=== PATIENT | female | born 1960 | race Caucasian/White ===

== ENCOUNTER 2022-09-06 08:44 | Outpatient (CLI) | payer MEDICARE, MEDICAID, SELFPAY ==
[2022-09-06 11:11] LABS: Albumin* 4.2 g/dL (3.3-5.0); Blood Urea Nitrogen* 15 mg/dL (7-30); Calcium* 8.6 mg/dL (8.4-10.6); Carbon Dioxide* 29 mmol/L (20-32); Chloride* 106 mmol/L (96-114); Creatinine* 0.5 mg/dL (0.5-1.5); Estimated Glomerular Filt Rate 106 ml/min; Glucose* 119 mg/dL (60-115); Potassium* 4.4 mmol/L (3.6-5.1); Sodium* 140 mmol/L (135-149); Total Protein* 7.6 g/dL (6.0-8.3)
[2022-09-06 11:12] LABS: Alanine Aminotransferase* 36 U/L (4-35); Alkaline Phosphatase* 86 U/L (40-150); Aspartate Amino Transferase* 36 U/L (12-35); Bilirubin Total* 0.6 mg/dL (0.1-1.5); Cholesterol* 126 mg/dL (90-199); HDL Cholesterol* 39 mg/dL (>=50); LDL Cholesterol Calculated 41 mg/dL (<100); Triglycerides* 230 mg/dL (40-149)
== END 2022-09-06 08:45 | disposition home or self-care (01) ==
LOC: NFLDREF 08:44
PROVIDERS: PCP Family Medicine; Visit Provider Family Medicine
DX: Z00.00 Encounter for general adult medical examination without abnormal findings (principal); E78.5 Hyperlipidemia, unspecified; I10 Essential (primary) hypertension
CPT/HCPCS: 80053; 80061

== ENCOUNTER 2022-09-30 11:33 | Outpatient (CLI) | payer MEDICARE, MEDICAID, SELFPAY ==
[2022-09-30 21:44] LABS: Albumin* 4.3 g/dL (3.3-5.0); Chloride* 107 mmol/L (96-114); Sodium* 140 mmol/L (135-149)
[2022-09-30 21:46] LABS: Creatinine* 0.5 mg/dL (0.5-1.5); Estimated Glomerular Filt Rate 106 ml/min
[2022-09-30 21:47] LABS: Alanine Aminotransferase* 41 U/L (4-35); Alkaline Phosphatase* 84 U/L (40-150); Aspartate Amino Transferase* 36 U/L (12-35); Bilirubin Total* 0.6 mg/dL (0.1-1.5); Blood Urea Nitrogen* 15 mg/dL (7-30); Carbon Dioxide* 24 mmol/L (20-32); Glucose* 141 mg/dL (60-115); Total Protein* 7.9 g/dL (6.0-8.3)
[2022-09-30 21:48] LABS: Calcium* 9.3 mg/dL (8.4-10.6)
== END 2022-09-30 11:34 | disposition home or self-care (01) ==
LOC: FRMREF 11:35
PROVIDERS: PCP Family Medicine; Visit Provider Dermatology
DX: L40.50 Arthropathic psoriasis, unspecified (principal); I10 Essential (primary) hypertension; Z79.631 Long term (current) use of antimetabolite agent
CPT/HCPCS: 80053

== ENCOUNTER 2022-11-03 11:10 | Emergency (ER) | payer MEDICARE, MEDICAID, SELFPAY ==
[2022-11-03 11:17] VITALS: BP 149/88; PULSE 78; RESP 16; TEMP 36.7; O2SAT 93; BMI 33.5
--- NOTE | 2022-11-03 12:10 | ED.GENADULT ---
HPI - General Adult General Date Seen: 11/03/22 Chief complaint: Lower Extremity Swelling Stated complaint: RT hand swollen - thinks stich got loose? Time Seen by Provider: 11/03/22 11:11 Source: patient Mode of arrival: ambulatory Limitations: no limitations History of Present Illness HPI narrative: Patient is a 62-year-old woman who has a history of what has been presumed to be psoriasis. She has a rash on her hands, and has been on several different medications to treat psoriasis without any effect. As result, she had a biopsy 6 days ago at the [facility] to see whether not it is in fact psoriasis that they are dealing with. The biopsy was from the right dorsal hand at the 2nd MCP joint. She reports that this area had done fine until last night when she developed swelling and increasing pain in the hand. It is not particularly red above and beyond what she normally has. She has some palmar erythema which is chronic. She has not had any erythema extending up the arm and has not had any fevers. She does have an appointment tomorrow with Dr. Nunez at the [facility]. The stitch is loosely still in place. Related Data Home Medications Medication Instructions Recorded Confirmed albuterol sulfate 90 mcg/actuation 1 puff inhalation PRN 06/14/22 10/28/22 aerosol inhaler triamcinolone acetonide 0.1 % 1 applic topical BID 06/14/22 11/03/22 topical cream Lactobacillus acidophilus 1 tab PO .QD 09/09/22 11/03/22 biotin 1 tab PO .QD 09/09/22 11/03/22 cholecalciferol (vitamin D3) 1 cap PO .QD 09/09/22 11/03/22 ferrous sulfate 1 tab PO .QD 09/09/22 11/03/22 omega-3 fatty acids 500 mg PO QDAY 09/09/22 11/03/22 vit 1 cap PO .QD 09/09/22 11/03/22 C,E,zinc,Np-tghyc-7-lutein-zeaxanthin 250 mg-2.5 mg-0.5 mg capsule Previous Rx's Medication Instructions Recorded calcipotriene 0.005 % topical cream 1 applic topical BID #60 grams 07/20/22 tapinarof 1 % topical cream (Vtama) 1 applic topical QDAY #60 grams 08/17/22 calcipotriene 0.005 % topical 1 applic topical QDAY #120 grams 09/08/22 ointment acyclovir 400 mg tablet 400 mg PO .Tidx5d PRN genital 09/09/22 herpes #30 tabs amitriptyline 50 mg tablet 50 mg PO QHS #90 tabs 09/09/22 amlodipine 10 mg tablet 10 mg PO QPM #90 tabs 09/09/22 bupropion HCl 300 mg 24 hr tablet, 300 mg PO DAILY #90 tabs 09/09/22 extended release fluticasone fur. 100 mcg-umeclid 1 inh inhalation QDAY #180 ea 09/09/22 62.5 mcg-vilant 25 mcg inhalat.powder (Trelegy Ellipta) hydroxyzine pamoate 25 mg capsule 25 mg PO TID PRN anxiety #90 caps 09/09/22 ibuprofen 800 mg tablet 800 mg PO TID PRN pain #30 tabs 09/09/22 metoprolol succinate 25 mg 25 mg PO DAILY #90 tabs 09/09/22 tablet,extended release 24 hr omeprazole 40 mg capsule,delayed 40 mg PO QDAY #90 caps 09/09/22 release roflumilast 0.3 % topical cream 1 applic topical QDAY #60 grams 09/09/22 (Zoryve) simvastatin 20 mg tablet 20 mg PO .Bedtime #90 tabs 09/09/22 buprenorphine 8 mg-naloxone 2 mg 2.5 film sublingual DAILY #70 ea 09/27/22 sublingual film timolol maleate 0.5 % eye drops 1 drp ophthalmic (eye) BID #15 mL 10/28/22 Allergies Allergy/AdvReac Type Severity Reaction Status Date / Time Sulfa (Sulfonamide Allergy Mild Rash Verified 11/03/22 11:14 Antibiotics) Review of Systems Status of ROS: Reports: 6 or more systems reviewed and unremarkable except as noted in History and below [facility] Medical History History of anemia History of traumatic injury of head On methotrexate therapy Psoriasis Psoriasis Surgical History History of bunionectomy History of tonsillectomy Status post laparoscopic Jerilyn fundoplication Social History Smoking Status: Current every day smoker What tobacco products do you use: cigarettes Smoking packs per day: 1 Smoking cigarettes per day: 20.0 Do you use any of these nicotine containing products: None Second hand tobacco smoke exposure: No How often do you have a drink containing alcohol: never AUDIT-C Alcohol total score: 0 Non-prescribed substance use: former substance user Non-prescribed substance use details: clean from heroin since 2006 Little interest or pleasure in doing things: not at all Feeling down, depressed, or hopeless: several days service: No Exam Narrative: Exam Narrative: Vital signs reviewed General alert well-appearing woman. Extremities: Examination of the right hand shows a chronic appearing rash on MCPs, chronic erythema on the palmar surface and diffuse swelling throughout the hand without significant erythema otherwise. The wrist and forearm were normal. Skin: Warm and dry. Changes as noted above. Const: Vital Signs, click to edit/add: Vital Signs - 24 hr 11/03/22 11:17 Temperature 98.0 F Pulse Rate [Pulse Oximeter] 78 Respiratory Rate 16 Blood Pressure [Le ft Upper Arm] 149/88 H Pulse Oximetry 93 Oxygen Delivery Me thod Room Air Course Course Hospital Course: I removed the stitch that was loosely in place, it was not holding anything together, the knot was actually no longer tied. Given that she has a fair amount of swelling and pain I am going to cover her with antibiotics. I do not see significant erythema however. She is not currently on any immunosuppressive therapies. Discussed with her that any time she is feeling worse over the next 24 hours she should just return to the emergency department otherwise follow up with Dr. Nunez tomorrow for recheck. Vital Signs Vital signs: Initial Vital Signs Temperature 98.0 F 11/03/22 11:17 Temperature Source Temporal Artery Scan 11/03/22 11:17 Pulse Rate 78 11/03/22 11:17 Pulse Rhythm 11/03/22 11:17 Pulse Strength 3+ Normal 11/03/22 11:17 Respiratory Rate 16 11/03/22 11:17 Blood Pressure 149/88 H 11/03/22 11:17 Blood Pressure Mean 108 11/03/22 11:17 Blood Pressure Position Sitting 11/03/22 11:17 Pulse Oximetry 93 11/03/22 11:17 Oxygen Delivery Method 11/03/22 11:17 Vital Signs Temperature 98.0 F 11/03/22 11:17 Pulse Rate 78 11/03/22 11:17 Respiratory Rate 16 11/03/22 11:17 Blood Pressure 149/88 H 11/03/22 11:17 Pulse Oximetry 93 11/03/22 11:17 Oxygen Delivery Method 11/03/22 11:17 Temperature 98.0 F 11/03/22 11:17 Pulse Rate 78 11/03/22 11:17 Respiratory Rate 16 11/03/22 11:17 Blood Pressure 149/88 H 11/03/22 11:17 Pulse Oximetry 93 11/03/22 11:17 Oxygen Delivery Method 11/03/22 11:17 Discharge Plan Discharge Clinical Impression: Cellulitis of hand Patient Disposition: Home, Self-Care Condition: Stable Instructions: Cellulitis (ED) Additional Instructions: Antibiotic as prescribed. Follow up as planned tomorrow, return at any time for worsening. Prescriptions: No Action albuterol sulfate 90 mcg/actuation HFA aerosol inhaler 1 puff inhalation PRN triamcinolone acetonide 0.1 % cream 1 applic topical BID Rx Instructions: Apply topically to affected area twice daily as needed buprenorphine-naloxone 8-2 mg film 2.5 film sublingual DAILY Qty: 70 2RF omega-3 fatty acids Capsule 500 mg PO QDAY vit C,E,Zn,Zr--inz-zeax 250-2.5-0.5 mg capsule 1 cap PO .QD biotin 1 tab PO .QD Lactobacillus acidophilus [Probiotic] 1 tab PO .QD cholecalciferol (vitamin D3) 1 cap PO .QD ferrous sulfate [Iron (ferrous sulfate)] 1 tab PO .QD Trelegy Ellipta 100-62.5-25 mcg blister with device 1 inh inhalation QDAY Qty: 180 3RF acyclovir 400 mg tablet 400 mg PO .Tidx5d PRN (Reason: genital herpes) Qty: 30 5RF amitriptyline 50 mg tablet 50 mg PO QHS Qty: 90 3RF amlodipine 10 mg tablet 10 mg PO QPM Qty: 90 3RF bupropion HCl 300 mg tablet extended release 24 hr 300 mg PO DAILY Qty: 90 3RF hydroxyzine pamoate 25 mg capsule 25 mg PO TID PRN (Reason: anxiety) Qty: 90 3RF ibuprofen 800 mg tablet 800 mg PO TID PRN (Reason: pain) Qty: 30 3RF metoprolol succinate 25 mg tablet extended release 24 hr 25 mg PO DAILY Qty: 90 3RF omeprazole 40 mg capsule,delayed release(DR/EC) 40 mg PO QDAY Qty: 90 3RF simvastatin 20 mg tablet 20 mg PO .Bedtime Qty: 90 3RF timolol maleate 0.5 % drops 1 drp ophthalmic (eye) BID Qty: 15 1RF calcipotriene 0.005 % cream 1 applic topical BID Qty: 60 1RF Rx Instructions: rub in gently and completely to affected area twice daily as needed Vtama 1 % cream 1 applic topical QDAY Qty: 60 1RF calcipotriene 0.005 % ointment 1 applic topical QDAY Qty: 120 0RF Rx Instructions: rub in gently and completely Zoryve 0.3 % cream 1 applic topical QDAY Qty: 60 1RF Follow Up/Referrals: Arnulfo Alvarenga MD [Primary Care Provider] - Stand Alone Forms: [facility] Info Instructions
== END 2022-11-03 12:11 | disposition home or self-care (01) ==
PROVIDERS: Emergency Provider Emergency Medicine; PCP Family Medicine
DX: L03.113 Cellulitis of right upper limb (principal)
CPT/HCPCS: 99282; 99283

== ENCOUNTER 2022-12-10 12:54 | Outpatient (CLI) | payer MEDICARE, MEDICAID, SELFPAY ==
--- NOTE | 2022-12-10 13:00 | CRLHL7_ITS ---
For Patients: As a result of the Cures Act, medical imaging exams and procedure reports are released immediately into your electronic medical record. You may view this report before your referring provider. If you have questions, please contact your health care provider. BILATERAL SCREENING MAMMOGRAM WITH COMPUTER-AIDED DETECTION AND TOMOSYNTHESIS TECHNIQUE: CC and MLO views were obtained. These mammographic images have been obtained using full-field digital technique. These mammographic images were interpreted with the benefit of computer-aided detection. Breast Tomosynthesis was used in this interpretation. COMPARISON FILM: 10/28/21, 10/15/20, 07/27/19. FINDINGS: There are scattered areas of fibroglandular density IMPRESSION: There is no radiographic evidence for malignancy. ASSESSMENT: BI-RADS Category 2: Benign RECOMMENDATION: Routine screening mammogram in 1 year. A lay language report of this examination will be provided to the patient. Kelsi Alcantara M.D. Diagnostic/Breast Radiologist [email or web address] Transcribed: 2:18 p.mMyah cooper/Dictated by: Kelsi Alcantara MD @ 12/13/2022 8:24:00 AM (Electronically Signed)
== END 2022-12-10 12:55 | disposition home or self-care (01) ==
LOC: MAMMO 12:56
PROVIDERS: PCP Family Medicine; Visit Provider Family Medicine
DX: Z12.31 Encounter for screening mammogram for malignant neoplasm of breast (principal)
CPT/HCPCS: 77063; 77067

== ENCOUNTER 2022-12-16 09:47 | Outpatient (CLI) | payer MEDICARE, MEDICAID, SELFPAY | END 2022-12-16 09:48 | disposition home or self-care (01) | PROVIDERS: PCP Family Medicine; Visit Provider Dermatology | DX: L40.9 Psoriasis, unspecified (principal) | CPT/HCPCS: 80053; 83735 ==

== ENCOUNTER 2023-03-07 11:10 | Outpatient (CLI) | payer MEDICARE, MEDICAID, SELFPAY | END 2023-03-07 11:11 | disposition home or self-care (01) | LOC: NFLDREF 15:00 | PROVIDERS: PCP Family Medicine; Referring Provider Family Medicine; Visit Provider Dermatology | DX: L40.9 Psoriasis, unspecified (principal); Z79.621 Long term (current) use of calcineurin inhibitor | CPT/HCPCS: 80053; 83735 ==

== ENCOUNTER 2023-07-12 03:15 | Inpatient (IN) | payer MEDICARE, MEDICAID, SELFPAY ==
[2023-07-12] VITALS (17 sets, daily range): BP systolic 114–135; BP diastolic 67–81; PULSE 75–114; RESP 20–22; TEMP 36.7–38.3; O2SAT 78–90; BMI 32.0; BMI 31.9
--- NOTE | 2023-07-12 03:39 | ED_ITS ---
HPI - General Adult General Chief complaint: Unspecified Complaint, Adult Stated complaint: painful cough, body aches Time Seen by Provider: 07/12/23 03:22 Source: patient Mode of arrival: ambulatory History of Present Illness HPI narrative: 62-year-old female with history of COPD that continues to smoke presents to the emergency department for evaluation of cough and body aches. Illness for the past 8 days. Body aches localize to the left lower anterior and lateral rib area. No prior history of PE. She really realize she was short of breath until in triage her oxygen levels were noted to be 78%. She has had no hemoptysis, no productive cough. She does report known history of COPD that she is prescribed inhalers which she has not been using for the last few days because she has felt ill. The rationale for this is unclear. Notes some fatigue and body ache but no anterior upper type chest pain, no palpitations or other cardiac symptoms. Denies history of coronary artery disease or heart failure. No prior history of DVT or PE. Does not take any type of blood thinner. No recent changes in any of her medications with the exception of not using her inhalers recently. No known illness exposures but she did see on the news that there have been a lot of influenza cases already this season. No pertinent travel. It sounds as though she has had low oxygen levels when she has been ill in the past but has declined to be hospitalized then. Denies history of intubation for breathing issues. No fevers that she is aware of. Appetite has been a little decreased but not terribly different than usual. No dysuria, no nausea or vomiting. She tried taking ibuprofen a couple of days ago with no significant improvement in her pain and she tried a Lidoderm patch today which did help somewhat. Past medical history notable for COPD, psoriasis. She is immunocompromised due to use of methotrexate. She has a history of depression and is on Suboxone for opioid therapy. Also history of hypertension and genital herpes with denial of recent outbreak. Medications reported as accurate per patient. Sulfa allergy. Socially she continues to smoke but does not currently drink alcohol. No recreational drugs other than the opiates that are appropriately prescribed. ROS is notable for the generalized and respiratory symptoms as above, otherwise denies times 12 systems. Related Data Home Medications Medication Instructions Recorded Confirmed albuterol sulfate 90 mcg/actuation 1 puff inhalation PRN 06/14/22 06/06/23 aerosol inhaler triamcinolone acetonide 0.1 % 1 applic topical BID 06/14/22 06/06/23 topical cream Lactobacillus acidophilus 1 tab PO .QD 09/09/22 06/06/23 biotin 1 tab PO .QD 09/09/22 06/06/23 cholecalciferol (vitamin D3) 1 cap PO .QD 09/09/22 06/06/23 ferrous sulfate 1 tab PO .QD 09/09/22 06/06/23 omega-3 fatty acids 500 mg PO QDAY 09/09/22 06/06/23 vit 1 cap PO .QD 09/09/22 06/06/23 C,E,zinc,Cj-bjsct-2-lutein-zeaxanthin 250 mg-2.5 mg-0.5 mg capsule Previous Rx's Medication Instructions Recorded acyclovir 400 mg tablet 400 mg PO .Tidx5d PRN genital 09/09/22 herpes #30 tabs amitriptyline 50 mg tablet 50 mg PO QHS #90 tabs 09/09/22 amlodipine 10 mg tablet 10 mg PO QPM #90 tabs 09/09/22 bupropion HCl 300 mg 24 hr tablet, 300 mg PO DAILY #90 tabs 09/09/22 extended release fluticasone fur. 100 mcg-umeclid 1 inh inhalation QDAY #180 ea 09/09/22 62.5 mcg-vilant 25 mcg inhalat.powder (Trelegy Ellipta) hydroxyzine pamoate 25 mg capsule 25 mg PO TID PRN anxiety #90 caps 09/09/22 metoprolol succinate 25 mg 25 mg PO DAILY #90 tabs 09/09/22 tablet,extended release 24 hr omeprazole 40 mg capsule,delayed 40 mg PO QDAY #90 caps 09/09/22 release simvastatin 20 mg tablet 20 mg PO .Bedtime #90 tabs 09/09/22 cyclosporine modified 100 mg 200 mg (2 x 100 mg) PO BID #360 03/01/23 capsule caps ibuprofen 800 mg tablet 800 mg PO TID PRN pain #30 tabs 04/08/23 buprenorphine 8 mg-naloxone 2 mg 2.5 film sublingual DAILY #70 ea 06/06/23 sublingual film Allergies Allergy/AdvReac Type Severity Reaction Status Date / Time Sulfa (Sulfonamide Allergy Mild Rash Verified 10/16/23 10:22 Antibiotics) PFSH PFSH Medical History Encounter for correction current cyclosporin A therapy ?Z79.621 - residential (current) use of calcineurin inhibitor (ICD-10) Infection ?B99.9 - Unspecified infectious disease (ICD-10) On methotrexate therapy ?Z79.631 - rat exterminator (current) use of antimetabolite agent (ICD-10) Psoriasis ?L40.9 - Psoriasis, unspecified (ICD-10) Psoriasis ?L40.9 - Psoriasis, unspecified (ICD-10) History of anemia ?Z86.2 - Personal history of diseases of the blood and blood-forming organs and certain disorders involving the immune mechanism (ICD-10) History of traumatic injury of head ?Z87.828 - Personal history of other (healed) physical injury and trauma (ICD-10) Surgical History History of tonsillectomy ?Z90.89 - Acquired absence of other organs (ICD-10) Status post laparoscopic Jerilyn fundoplication ?Z98.890 - Other specified postprocedural states (ICD-10) History of bunionectomy ?Z98.890 - Other specified postprocedural states (ICD-10) Social History Smoking Status: Current every day smoker What tobacco products do you use: cigarettes Smoking packs per day: 1 Smoking cigarettes per day: 20.0 Do you use any of these nicotine containing products: None Second hand tobacco smoke exposure: No How often do you have a drink containing alcohol: never AUDIT-C Alcohol total score: 0 Non-prescribed substance use: former substance user Non-prescribed substance use details: clean from heroin since 2006 Little interest or pleasure in doing things: not at all Feeling down, depressed, or hopeless: several days service: No Exam Const: Vital Signs, click to edit/add: Vital Signs - 24 hr 07/12/23 03:21 07/12/23 03:26 07/12/23 05:19 Temperature 98.6 F Pulse Rate [Left P ulse Oximeter] 114 H Respiratory Rate 20 Blood Pressure [Ri ght Upper Arm] 124/78 Pulse Oximetry 78 L 83 L 90 Oxygen Delivery Me thod Room Air Nasal Cannula Nasal Cannula Oxygen Flow Rate 2 3 Documenting provider has reviewed patient's vital signs: yes Common normals: no apparent distress Other: Able to speak in full sentences but she does desat even on 2 L to the low 80s with this. No delirium. HENMT: Common normals: normocephalic Head and scalp: normocephalic Face and sinus: normal facial exam Mouth: oral and palatal mucosa normal Throat: posterior oropharynx normal Eye: Common normals: conjunctivae normal General eye: normal appearance of both eyes Conjunctiva: conjunctiva(e) normal Neck & C-Spine: Common normals: full ROM and no lymphadenopathy Chest: Common normals: inspection of chest normal and palpation of chest normal Resp: Other: Mildly increased work of breathing. Decreased air movement throughout and mild prolongation of expiration with coarse expiratory wheeze throughout but no obvious crackle. Cardio: Common normals: regular rate, regular rhythm, S1 normal heart sound, S2 normal heart sound and no murmurs Rate: regular rate Rhythm: regular rhythm Heart sounds: S1 normal and S2 normal GI: Common normals: Normal to inspection, nondistended, normoactive bowel sounds present, soft to palpation, non-tender, no hepatosplenomegaly and no masses Palpation: soft and no hepatosplenomegaly Extremity: Common normals: normal to inspection, normal capillary refill and no pedal edema Neuro: Speech: speech normal Motor exam: strength 5/5 throughout and no movement abnormalities noted Psych: Appearance: grossly normal Attitude: engaged Insight: insight good Judgement: judgment good Skin: Common normals: no rashes or lesions noted General skin exam: no rashes or lesions noted Course Course ED Course: Differential diagnosis including COPD, pneumonia, viral respiratory illness, pulmonary embolism, cardiac process, heart failure, amongst others. Tachycardia noted. Low oxygen sats. Focal pain all worrisome for pulmonary embolism. She also does continue to smoke which would increase her risk. Clear COPD whether this is the primary cause or a secondary consequence is evident. Will draw basic labs including D-dimer. Chest x-ray, COVID swab. Start DuoNeb and give 125 of Solu-Medrol while we await findings. Will likely need CT PA based on findings. Reevaluation(s) Time of Reevaluation #1: 05:55 Reevaluation #1: D-dimer markedly elevated. Patient's O2 sats doing better on 3 L of nasal cannula. Seems to have had some clinical improvement after the DuoNeb and steroids. Chest x-ray with dense consolidation in the left lower lobe, suspicious for effusion, empyema, etc.. Certainly would explain her pain. I still cannot exclude pulmonary embolism. We have had much difficulty getting an IV and anesthesia has now arrived for assistance with this. Have spoken with the hospitalist. We are still trying to get an IV and I do recommend that we push forward with getting a CT angio of the chest but admission is needed regardless of the findings of that chest CT. It will also help us better characterize that effusion. Hospitalist was agreeable to admission. We discussed antibiotics. I recommended Zosyn. He recommended added azithromycin. This is done. We discussed been come ice and and did not think that this would be necessary in her case, but he is welcome to reconsider if he chooses. Permission to admit patient with the CT angio of the chest still pending was granted. Patient agreeable to plan of care. Time of Reevaluation #2: 06:25 Reevaluation #2: Unfortunately, IV line was again unsuccessful. Cannot perform CT PA. Would recommend that we call for a PICC line during the daylight hours. In the interim she still needs are antibiotics, oxygen support management of his COPD. I do not think we necessarily need to start her on heparin. She is showing clinical improvement. But there is going to be further significant delay in getting a PICC line or definitive IV that can tolerate high-dose contrast, consideration for anticoagulation should be made. Information passed along to the med surge team to relay to the hospitalist. Vital Signs Vital signs: Initial Vital Signs Temperature 98.6 F 07/12/23 03:21 Temperature Source Temporal Artery Scan 07/12/23 03:21 Pulse Rate 114 H 07/12/23 03:21 Pulse Rhythm Regular 07/12/23 03:21 Respiratory Rate 20 07/12/23 03:21 Blood Pressure 124/78 07/12/23 03:21 Blood Pressure Mean 93 07/12/23 03:21 Blood Pressure Position Sitting 07/12/23 03:21 Pulse Oximetry 78 L 07/12/23 03:21 Oxygen Delivery Method Room Air 07/12/23 03:21 Vital Signs Temperature 98.6 F 07/12/23 03:21 Pulse Rate 114 H 07/12/23 03:21 Respiratory Rate 20 07/12/23 03:21 Blood Pressure 124/78 07/12/23 03:21 Pulse Oximetry 78 L 07/12/23 03:21 Oxygen Delivery Method Room Air 07/12/23 03:21 Temperature 98.6 F 07/12/23 03:21 Pulse Rate 114 H 07/12/23 03:21 Respiratory Rate 20 07/12/23 03:21 Blood Pressure 124/78 07/12/23 03:21 Pulse Oximetry 90 07/12/23 05:19 Oxygen Delivery Method Nasal Cannula 07/12/23 05:19 Oxygen Flow Rate 3 07/12/23 05:19 Medications Administered Medications: Discontinued Medications Generic Name Dose Route Start Last Admin Trade Name Freq PRN Reason Stop Dose Admin Albuterol/Ipratropium 1 neb 07/12/23 03:37 07/12/23 04:03 Iprat-Albut 0.5-2.5 Mg/3 Ml Neb IH 07/12/23 03:38 1 neb ONCE ONE Administration Methylprednisolone Sodium Succinate 125 mg 07/12/23 03:37 07/12/23 04:37 Methylprednisolone Sod Succ 62.5 Mg/Ml (125) IVP 07/12/23 03:38 125 mg ONCE ONE Administration Medical Decision Making Lab Data Lab results reviewed: Yes I reviewed the patient's lab results Lab results narrative: Marked leukocytosis, almost all neutrophils. Potassium is mildly low which is likely nutritional in nature. CRP is elevated. Troponin reassuring, viral swabs negative. CT with what looks to be a large pleural effusion verses dense consolidation, empyema. Very elevated D-dimer. Labs: Lab Results 07/12/23 07/12/23 Range/Units 03:26 04:30 WBC 20.83 H (4.50-11.00) K/uL RBC 4.78 (4.00-5.20) m/uL Hgb 14.2 (12.0-16.0) gm/dL Hct 41.9 (33.0-51.0) % MCV 88 (80-100) fL MCH 30 (26-34) pg MCHC 34 (32-36) gm/dL RDW Coeff of Sher 12.7 (11.5-15.5) % Plt Count 307 (140-440) K/uL Neut % (Auto) 91.0 H (42.0-72.0) % Lymph % (Auto) 2.7 L (20-44) % [place] % (Auto) 5.9 (0.0-11.0) % Eos % (Auto) 0.0 (0.0-7.0) % Baso % (Auto) 0.0 (0.0-3.0) % Neut # (Auto) 19.00 H (1.7-7.0) K/uL Lymph # (Auto) 0.60 L (0.90-2.90) K/uL [place] # (Auto) 1.20 H (0.00-0.90) K/UL Eos # (Auto) 0.00 (0.00-0.50) K/uL Baso # (Auto) 0.00 (0.00-0.30) K/uL Abs Immat Gran (auto) 0.10 (0.00-0.30) K/uL Imm/Tot Granulo (auto) 0.4 % D-Dimer Quant (PE/DVT) 3.41 H (0.00-0.50) ug/ml Sodium 136 (135-149) mmol/L Potassium 3.2 L (3.6-5.1) mmol/L Chloride 96 (96-114) mmol/L Carbon Dioxide 30 (20-32) mmol/L Anion Gap 10 (7-15) mEq/L BUN 11 (7-30) mg/dL Creatinine 0.5 (0.5-1.5) mg/dL Estimated GFR 105 ml/min Glucose 201 H (60-115) mg/dL Lactate 1.2 (0.5-1.9) mmol/L Calcium 8.5 (8.4-10.6) mg/dL Total Bilirubin 1.4 (0.1-1.5) mg/dL AST 33 (12-35) U/L ALT 30 (4-35) U/L Alkaline Phosphatase 146 (40-150) U/L Troponin I < 0.01 L (0.01-0.04) ng/mL C-Reactive Protein 22.4 H (0.5-1.0) mg/dL NT-Pro-B Natriuret Pep 654 pg/mL Total Protein 7.3 (6.0-8.3) g/dL Albumin 3.6 (3.3-5.0) g/dL SARS-CoV-2 (PCR) Negative SARS-CoV-2 (Negative) Influenza Type A (PCR) Negative PCR FLU A (Negative) Influenza Type B (PCR) Negative PCR FLU B (Negative) RSV (PCR) Negative PCR RSV (Negative) POC Troponin I 0.02 (0.01-0.04) ng/ml Imaging Data Chest x-ray: Attestation: I have reviewed the pertinent imaging results. My impression: Dense consolidation left lower chest, suspicious for empyema, effusion. Radiologist's impression: Findings/Impression: Cardiovascular and mediastinum: Cardiomegaly present. Normal pulmonary vasculature and mediastinum. Lungs and pleural spaces: Moderate to large left-sided pleural effusion with adjacent atelectasis and/or infiltrate. Remainder of the lungs and pleural spaces are clear. No pneumothorax. Bones and soft tissues: No significant findings. ECG Data Attestation: I personally reviewed and interpreted this ECG as follows: Prior ECG tracings: not available for review Interpretation: Rhythm is overall sinus. Rate is around 100. Normal axis and intervals. T- waves are little flat verses inverted, uncertain of significance. But no obvious ischemia. Discharge Plan Discharge Clinical Impression: Acute hypoxic respiratory failure, Empyema, Community acquired pneumonia Patient Disposition: Admitted As Inpatient
--- NOTE | 2023-07-12 03:55 | CRLHL7_ITS ---
For Patients: As a result of the Cures Act, medical imaging exams and procedure reports are released immediately into your electronic medical record. You may view this report before your referring provider. If you have questions, please contact your health care provider. Indication: Dyspnea and hypoxia. Technique: Chest 2 views. Comparison: April 20, 2018. Findings/Impression: Cardiovascular and mediastinum: Cardiomegaly present. Normal pulmonary vasculature and mediastinum. Lungs and pleural spaces: Moderate to large left-sided pleural effusion with adjacent atelectasis and/or infiltrate. Remainder of the lungs and pleural spaces are clear. No pneumothorax. Bones and soft tissues: No significant findings. Dictated by Kevin Aquino MD @ 07/12/2023 5:54:32 AM (Electronically Signed)
[2023-07-12] MEDS: IPRAT-ALBUT 0.5-2.5 MG/3 ML NEB 1 NEB IH ×3 (04:03→13:46)
[2023-07-12] MEDS: METHYLPREDNISOLONE SOD SUCC 62.5 MG/ML (125) 125 MG IVP (04:37)
[2023-07-12 04:41] LABS: Lactate* 1.2 mmol/L (0.5-1.9)
[2023-07-12 04:42] LABS: Hematocrit 41.9 % (33.0-51.0); Hemoglobin* 14.2 gm/dL (12.0-16.0); Immature Granulocytes Pct Auto 0.4 %; Lymphocytes Percent Auto 2.7 % (20-44); Mean Corpuscular HGB Conc 34 gm/dL (32-36); Mean Corpuscular Hemoglobin 30 pg (26-34); Mean Corpuscular Volume 88 fL (80-100); Monocytes Percent Auto 5.9 % (0.0-11.0); Platelet Count* 307 K/uL (140-440); RDW Coefficient of Variation % 12.7 % (11.5-15.5); Red Blood Count 4.78 m/uL (4.00-5.20); White Blood Count* 20.83 K/uL (4.50-11.00)
[2023-07-12 04:46] LABS: Slide Review Reflex No
--- OUTSIDE RECORDS SUMMARY | 2023-07-12 04:46 | XMS_ITS | Continuity of Care Document ---
Author Name Unknown Organization [facility] Address [address] [address] [place] [address] Phone Care Team Providers Care Waterworks Supervisor Name Role Phone Unavailable Unavailable Unavailable Allergies, Adverse Reactions, Alerts Substance Reaction Status Criticality Sulfa (Sulfonamide Antibiotics) Active No Information Medications Medication Instructions Dosage Effective Dates (start - stop) Status Comments Flonase 50 mcg/actuation nasal spray,suspension inhale 1 [place](s) by Nasal route every day 1 [place](s) - Active Guaifenesin AC 10 mg-100 mg/5 mL oral liquid take 10 milliliter by oral route every 4 hours as needed 10.00 milliliter - Active loratadine 10 mg tablet take 1 tablet by ORAL route every day as needed 10 MG - Active acyclovir 400 mg tablet take 1 Tablet by oral route 3 times every day for 5 days as needed - Active amitriptyline 50 mg tablet take 1 Tablet by oral route every day at bedtime 50 MG - Active amlodipine 10 mg tablet take 1 tablet by oral route every day 10 MG - Active buprenorphine 8 mg-naloxone [address] 2.5 Tablet by sublingual route every day 20 MG - Active hydrochlorothiazide 25 mg tablet take 1 tablet by ORAL route every day 25 MG - Active ibuprofen 800 mg tablet take 1 tablet by ORAL route 3 times every day as needed 800 MG - Active mirtazapine 30 mg tablet take 1 tablet b y oral route every day as needed before bed time 30 MG - Active naproxen 500 mg tablet take 1 tablet by ORAL route 2 times every day as needed 500 MG - Active Prilosec 40 mg capsule,delayed release take 1 capsule by oral route 2 times every day before a meal 40 MG - Active bupropion HCl XL 300 mg 24 hr tablet, extended release take 1 tablet by oral route every day 300 MG - Active Iron Plus Vitamin C 65 mg iron-125 mg tablet take 1 Tablet by Oral route 2 times every day - Active Procedures Procedure Date Offic Cons New/estab Mod Routine Serum Collection Advance Directives Directive Yes / No Effective Date File Name No Information Encounters Encounter Description Practice Location Reason(s) For Visit Diagnoses Date Provider Providers Copied on Encounter [facility], [address] [address], [place], [place], [id number], [place] tel:[phone] [facility] No Information No Information Offic Cons New/estab Mod [facility], [address] [address], [place], [place], [id number], [place] tel:[phone] [facility] GI Symptoms or Concerns (chief complaint) Anemia, Iron DeficiencyHep C No Coma-chronicDi etary Surveil/counse l No Information Referring Provider: Arnulfo Alvarenga MD, [address] [place], [address]. tel:[phone] Family History Family Member Type Diagnosis Age At Onset Mother Problem (finding) Leukemia (Cause Of Deat h) Mother Problem (finding) Immunizations Vaccine Date Status Comments Influenza virus vaccine, injectable, quadrivalent, split virus, preservative free, 3 years or older Fluarix, Flulaval or Fluzone Quad [id number] administered Note: Invalid docume nted admin date was . ; Source: Other Provider Payers Payer name Insurance type Covered green party ID Authoriza tion(s) No Information Social History Type Description Quantity Date Captured Comments Alcohol Use Details Unknown Caffeine Use Details Unknown Tobacco Use Status Smoking Status No Information Sex Female Chief Complaint And Reason For Visit No Information Reason For Referral Reason For Referral No Information Plan Of Treatment Date Type Action Status Goal Lifestyle education regardin g diet completed History Of Present Illness Encounter Date Complaint History Of Prese nt Illness GI Symptoms or Concerns This ple asant 54-year-old woman is here mostly to review options for further diagnostic testing to help explain severe iron-deficiency anemia, and also has questions about whether her hepatitis C merits treatment.She has a past medical history of hepatitis C diagnosed in 1994, gastroesophageal reflux, depression with anxiety, hypertension, and other issues as detailed in the past medical history template.This nice lady grew up in [place], [place], but lived for nearly 20 years in [place], returning here around 2005. 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 She has been drug-free for at least nine years, and has no temptations in her current living environment. She believes this was how she acquired hepatitis C infection, although she says she never had acute clinical hepatitis or jaundice. She does struggle with severe fatigue, but has had significant problems with anemia unexplained by the colonoscopy an Functional Status Date Functional Assessmen t No Information Instructions Date Instruction Additional Infor richie I appreciate the opp ortunity to visit with this pleasant lady regarding her GI and liver issues today. Please see my suggestions and orders below, feel free to call with any questions or concerns. Related to Anemia, Iron Deficiency Lifestyle education regarding di et Related to Dietary surveillance and counseling Jeannette information, please Rela robel to Hep C No Coma-chronic Small Bowel PillCam Related to I bertram Deficiency Anemia Assessments Type Assessment Date No Information Patient Care Teams Name Effective Dates (start - stop) Status Members No Information
[2023-07-12 04:47] LABS: Troponin, Point-of-Care* 0.02 ng/ml (0.01-0.04)
[2023-07-12 04:58] LABS: Albumin* 3.6 g/dL (3.3-5.0); Chloride* 96 mmol/L (96-114)
[2023-07-12 04:59] LABS: Potassium* 3.2 mmol/L (3.6-5.1); Sodium* 136 mmol/L (135-149)
[2023-07-12 05:01] LABS: Bilirubin Total* 1.4 mg/dL (0.1-1.5); Creatinine* 0.5 mg/dL (0.5-1.5); Estimated Glomerular Filt Rate 105 ml/min
[2023-07-12 05:02] LABS: Alanine Aminotransferase* 30 U/L (4-35); Alkaline Phosphatase* 146 U/L (40-150); Anion Gap 10 mEq/L (7-15); Aspartate Amino Transferase* 33 U/L (12-35); Blood Urea Nitrogen* 11 mg/dL (7-30); Calcium* 8.5 mg/dL (8.4-10.6); Carbon Dioxide* 30 mmol/L (20-32); Glucose* 201 mg/dL (60-115); Total Protein* 7.3 g/dL (6.0-8.3)
[2023-07-12 05:17] LABS: D Dimer Quantitative* 3.41 ug/ml (0.00-0.50)
[2023-07-12 05:18] LABS: C Reactive Protein* 22.4 mg/dL (0.5-1.0); NT Pro B Type NatriureticPept* 654 pg/mL; Troponin I* < 0.01 ng/mL (0.01-0.04)
[2023-07-12 05:22] LABS: PCR FLU A Negative PCR FLU A (Negative); PCR FLU B Negative PCR FLU B (Negative); PCR RSV Negative PCR RSV (Negative)
[2023-07-12 05:25] LABS: SARS PCR* Negative SARS-CoV-2 (Negative)
--- NOTE | 2023-07-12 05:40 | CRLHL7_ITS ---
For Patients: As a result of the Century Cures Act, medical imaging exams and procedure reports are released immediately into your electronic medical record. You may view this report before your referring provider. If you have questions, please contact your health care provider. INDICATION: .HYPOXIA, DYSPNEA TECHNIQUE: CT chest PE was acquired with 95 cc Isovue 370 IV contrast. COMPARISON: None FINDINGS: Pulmonary Arteries: No CT evidence of pulmonary thromboembolic disease. No pulmonary hypertension or right ventricular strain. Heart and Mediastinum: The visualized portions of the thyroid are normal. No axillary or supraclavicular lymphadenopathy. Prominent nonenlarged mediastinal lymph nodes. Borderline cardiomegaly. Normal caliber aorta. Atherosclerotic calcifications. Lungs and Airways: Passive left basilar atelectasis. Right basilar linear opacities likely subsegmental atelectasis. No endoluminal lesion. Pleura: [id number] left pleural effusion with features of loculation. Additional areas of fissural fluid Abdomen: Small hernia. Bones and soft tissues: Thoracic spondylosis. IMPRESSION: 1. No CT evidence of pulmonary thromboembolic disease. 2. [id number]-pruac left pleural effusion with features of loculation. Consider aspiration and cytological analysis given unilateral pleural effusion if not previously performed. 3. No discrete consolidation. Please note that all CT scans at this facility use dose modulation, iterative reconstruction, and/or weight-based dosing when appropriate to reduce radiation dose to as low as reasonably achievable. Dictated by Panchito Palma MD @ 07/12/2023 9:05:34 PM (Electronically Signed)
[2023-07-12] MEDS: PIPERACILLIN/TAZOBACTAM 3.375 GM in 0.9 % SODIUM CHLORIDE Mini-bag 100 ML IVPB ×2 (06:30→18:25)
--- NOTE | 2023-07-12 06:48 | ED.NURSE ---
DATA CENTER OPERATOR IV attempt via US unsuccessful. Pt taken to floor for further care.
[2023-07-12 08:40] LABS: HCO3 VBG 33 mmol/L (21-28); PCO2 VBG 49 mmHG (40-50); PO2 VBG 41.7 mmHG (25-47); pH VBG 7.437 (7.32-7.43)
[2023-07-12 08:47] LABS: Appearance Urine Slightly Cloudy (Clear); Bilirubin Urine 1+ (Negative); Blood Urine Negative (Negative); Color Urine Orange (Yellow); Glucose Urine Negative (Negative); Ketones Urine 2+ (Negative); Leukocyte Esterase Urine Negative (Negative); Nitrite Urine Negative (Negative); Protein Urine 2+ (Negative); Specific Gravity Urine 1.015 (1.000-1.030); Urobilinogen Urine >=8.0 (0.2-1.0)
[2023-07-12 08:57] LABS: Amorphous Sediment Urine Few; RBC Urine 0-2 (0-2); Squamous Epithelial Cell Urine Moderate (None-Few); WBC Urine 0-2 (0-5)
[2023-07-12] MEDS: OMEPRAZOLE 20 MG CAPSULE DR 40 MG PO (09:06)
[2023-07-12] MEDS: IBUPROFEN 400 MG TABLET PO ×3 (09:06→18:03)
[2023-07-12] MEDS: 0.9 % SODIUM CHLORIDE 1000 ml 1,000 ML 125 ML IV (09:06)
[2023-07-12] MEDS: AZITHROMYCIN 500 MG in 0.9 % SODIUM CHLORIDE 250 ml 250 ML 255 MG IVPB (09:26)
[2023-07-12] MEDS: METOPROLOL SUCCINATE (XL) 25 MG TAB PO (09:27)
[2023-07-12] MEDS: BUPRENORPHINE-NALOX 8-2MG FILM 1.5 EACH SUBLINGUAL (09:27)
[2023-07-12] MEDS: ACETAMINOPHEN 325 MG TABLET 650 MG PO ×4 (09:27→20:49)
[2023-07-12] MEDS: buPROPion XL 150 MG TABLET 300 MG PO (09:28)
[2023-07-12] MEDS: AZITHROMYCIN 250 MG TABLET 500 MG PO (09:56)
[2023-07-12 10:16] LABS: Magnesium* 2.1 mg/dL (1.5-2.6)
--- OUTSIDE RECORDS SUMMARY | 2023-07-12 11:14 | XMS_ITS | Continuity of Care Document ---
Author Name Unknown Organization [facility] Address [address] [address] [place] [address] Phone Care Team Providers Care Car Shagger Name Role Phone Unavailable Unavailable Unavailable Allergies, Adverse Reactions, Alerts Substance Reaction Status Criticality Sulfa (Sulfonamide Antibiotics) Active No Information Medications Medication Instructions Dosage Effective Dates (start - stop) Status Comments Flonase 50 mcg/actuation nasal spray,suspension inhale 1 [place]s) by Nasal route every day 1 [place](s) - Active Guaifenesin AC 10 mg-100 mg/5 [...] Diagnoses Date Provider Providers Copied on Encounter [facility], [address] [address], [place], [place], [id number], [place] tel:[phone] [facility] No Information No Information Offic Cons New/estab Mod [facility], [address] [address], [place], [place], [id number], [place] tel:[phone] [facility] Symptoms or Concerns (chief complaint) Anemia, Iron DeficiencyHep C No Coma-chronicDi etary Surveil/counse l No Information Referring Provider: Arnulfo Alvarenga MD, [address] [place], [address]. tel:[phone] Family History Family Member Type Diagnosis Age At Onset Mother Problem (finding) Leukemia (Cause Of Deat h) Mother Problem (finding) Immunizations Vaccine Date Status Comments Influenza virus vaccine, injectable, quadrivalent, split virus, preservative free, 3 years or older Fluarix, Flulaval or Fluzone Quad [id number] administered Note: Invalid docume nted admin date [...] history template.This nice lady grew up in [place], [place], but lived for nearly 20 years in [place], returning here around 2005. 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 She has [...]
--- NOTE | 2023-07-12 14:28 | PC.NURSE ---
Patient A&O since arrival to unit. IV access was maintained in right wrist but infiltrated during IV azithromycin admin. Abx changed to PO for the time being until PICC line can be placed this afternoon. Team scheduled to arrive around 1600. Patient is on HFNC 20L / 42 FiO2 / 35 degrees; maintaining O2 88-90%. Per RT; ok to apply NC 4-5L for ambulation to bathroom. Patient has a steady gait and continent of B&B. Continues to c/o left rib pain with cough & deep breathing & position change. Droplet precautions were initiated this morning d/t respiratory infection unknown etiology.
--- NOTE | 2023-07-12 14:31 | RESP.RT ---
Pt placed on HFNC at 0800. Requiring more oxygen to maintain SPO2 Decided increased flow may be benificial. Currently at 20L 42% 35 degrees. SPO2 90% RR easy and consistent at 18bpm. She does have a prolonged expiratory phase with some wheezing noted this AM. Suggest scheduled nebs Q4 Will start aerobika tomorrow if Pt is ready. Will wean HFNC in AM Maintain SPO2 around 87-90%
--- NOTE | 2023-07-12 16:00 | CRLHL7_ITS ---
For Patients: As a result of the Century Cures Act, medical imaging exams and procedure reports are released immediately into your electronic medical record. You may view this report before your referring provider. If you have questions, please contact your health care provider. INDICATION: PICC placement. TECHNIQUE: Chest 1 views. COMPARISON: July 12, 2023. FINDINGS: Cardiovascular and mediastinum: Heart size and vasculature are normal in caliber and appearance. Right PICC with tip in the superior cavoatrial junction. Lungs and pleural spaces: Persistent moderate left-sided pleural effusion with basilar consolidation. No pneumothorax. Bones and soft tissues: No significant findings. IMPRESSION: Right PICC with tip in the superior cavoatrial junction. Dictated by Abdirashid Prieto MD @ 07/12/2023 6:00:57 PM (Electronically Signed)
--- NOTE | 2023-07-12 16:00 | CRLHL7_ITS ---
For Patients: As a result of the Century Cures Act, medical imaging exams and procedure reports are released immediately into your electronic medical record. You may view this report before your referring provider. If you have questions, please contact your health care provider. Indication: PICC placement Technique: Grayscale ultrasound images of the right brachial vein, right basilic vein and right internal jugular vein submitted. IMPRESSION: Sonographic guidance for right arm PICC line placement. Dictated by Panchito Irizarry MD @ 07/13/2023 6:55:43 AM (Electronically Signed)
--- NOTE | 2023-07-12 16:27 | PM.IMHP1 ---
Hospitalist- H&P: HPI History of Present Illness Date Seen: 07/12/23 Chief complaint: painful cough, body aches Narrative: Michelle Trejo is a 62 year old woman presents with 2 weeks of progressive dyspnea, body aches, left-sided chest discomfort. She is a longstanding tobacco smoker and has no plans of quitting. Has known COPD. Acknowledges she is not adhering to medication regimen for her COPD. Believes she has had intermittent fevers. Denies rigors or diaphoresis. Has chronic cough. Denies hemoptysis. Acknowledges sputum production. Sputum sometimes yellow or green. Over the last couple days her dyspnea has worsened. With other symptoms persistent including the pain, she opted to come in for further evaluation to the emergency department this morning. Dyspnea worse with exertion. Denies paroxysmal nocturnal dyspnea or orthopnea. Denies dependent edema. Acknowledges decreased appetite. Denies nausea or vomiting. Denies dysphagia or odynophagia, dyspepsia, abdominal pain, diarrhea or constipation. Review of Systems Status of ROS: Reports: 10 or more systems reviewed and unremarkable except as noted in History and below [facility] Medical History Skin fissures ?R23.4 - Changes in skin texture (ICD-10) Tobacco dependence ?F17.200 - Nicotine dependence, unspecified, uncomplicated (ICD-10) Genital herpes ?A60.00 - Herpesviral infection of urogenital system, unspecified (ICD-10) Opioid use disorder ?F11.90 - Opioid use, unspecified, uncomplicated (ICD-10) Uterine fibroid ?D25.9 - Leiomyoma of uterus, unspecified (ICD-10) Simple obesity (12/14/12) ?E66.9 - Obesity, unspecified (ICD-10) PTSD (post-traumatic stress disorder) (12/14/12) ?F43.10 - Post-traumatic stress disorder, unspecified (ICD-10) Opioid dependence ?F11.20 - Opioid dependence, uncomplicated (ICD-10) Obstructive sleep apnea syndrome ?G47.33 - Obstructive sleep apnea (adult) (pediatric) (ICD-10) Low back pain ?M54.50 - Low back pain, unspecified (ICD-10) Insomnia (12/14/12) ?G47.00 - Insomnia, unspecified (ICD-10) Hypertension ?I10 - Essential (primary) hypertension (ICD-10) Hyperlipidemia ?E78.5 - Hyperlipidemia, unspecified (ICD-10) Hiatal hernia ?K44.9 - Diaphragmatic hernia without obstruction or gangrene (ICD-10) Hammer toe ?M20.40 - Other hammer toe(s) (acquired), unspecified foot (ICD-10) Gastroesophageal reflux disease (12/14/12) ?K21.9 - Gastro-esophageal reflux disease without esophagitis (ICD-10) Encounter for screening laboratory testing for severe acute respiratory syndrome coronavirus 2 (SARS-CoV-2) ?Z20.822 - Contact with and (suspected) exposure to COVID-19 (ICD-10) Encounter for pre-operative examination ?Z01.818 - Encounter for other preprocedural examination (ICD-10) Dysthymic disorder (12/14/12) ?F34.1 - Dysthymic disorder (ICD-10) Chronic obstructive pulmonary disease ?J44.9 - Chronic obstructive pulmonary disease, unspecified (ICD-10) Chronic low back pain ?M54.50 - Low back pain, unspecified (ICD-10) ?G89.29 - Other chronic pain (ICD-10) Chronic hepatitis C virus infection (12/14/12) ?B18.2 - Chronic viral hepatitis C (ICD-10) Central sleep apnea ?G47.31 - Primary central sleep apnea (ICD-10) Carpal tunnel syndrome ?G56.00 - Carpal tunnel syndrome, unspecified upper limb (ICD-10) Anxiety (12/14/12) ?F41.9 - Anxiety disorder, unspecified (ICD-10) Acute postoperative respiratory insufficiency ?J95.89 - Other postprocedural complications and disorders of respiratory system, not elsewhere classified (ICD-10) Abscess or cellulitis of thigh Abscess ?L02.91 - Cutaneous abscess, unspecified (ICD-10) 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 ?Z79.621 - termite technician (current) use of calcineurin inhibitor (ICD-10) Infection ?B99.9 - Unspecified infectious disease (ICD-10) On methotrexate therapy ?Z79.631 - [facility] (current) use of antimetabolite agent (ICD-10) Psoriasis ?L40.9 - Psoriasis, unspecified (ICD-10) Psoriasis ?L40.9 - Psoriasis, unspecified (ICD-10) History of anemia ?Z86.2 - Personal history of diseases of the blood and blood-forming organs and certain disorders involving the immune mechanism (ICD-10) History of traumatic injury of head ?Z87.828 - Personal history of other (healed) physical injury and trauma (ICD-10) Surgical History History of tonsillectomy ?Z90.89 - Acquired absence of other organs (ICD-10) Status post laparoscopic Jerilyn fundoplication ?Z98.890 - Other specified postprocedural states (ICD-10) History of bunionectomy ?Z98.890 - Other specified postprocedural states (ICD-10) Social History What is your current living situation?: I presently have a place to live Problems where you live: no known problems Problems where you live details: none In the past 12 months, utilities in danger of being shut off: no In past 12 months, lack of transportation kept you from medical appts, meetings, work, or getting things needed for daily living: no In the past 12 mos, have been you worried that your food would run out before you had money to buy more?: never true In the past 12 mos, the food you bought just didn't last and you didn't have money to buy more?: never true Are you following a diet prescribed by a doctor: No Are you following a special diet: No Highest level of school completed/degree received: high school graduate Smoking Status: Current every day smoker What tobacco products do you use: cigarettes Smoking packs per day: 1 Smoking cigarettes per day: 20.0 Do you use any of these nicotine containing products: None Second hand tobacco smoke exposure: No How often do you have a drink containing alcohol: never AUDIT-C Alcohol total score: 0 Non-prescribed substance use: former substance user Non-prescribed substance use details: clean from heroin since 2006 Caffeine: Yes How often does anyone, including family, friends and others, physically hurt you: never How often does anyone, including family, friends and others, insult or talk down to you: never How often does anyone, including family, friends and others, threaten you with harm: never How often does anyone, including family, friends and others, scream or curse at you: never Little interest or pleasure in doing things: not at all Feeling down, depressed, or hopeless: several days service: No Meds Home Medications and Allergies Home Medications Medication Instructions Recorded Confirmed Type albuterol sulfate 90 mcg/actuation 1 puff inhalation Q4H PRN 06/14/22 07/12/23 History aerosol inhaler biotin 1 tab PO DAILY 09/09/22 07/12/23 History omega-3 fatty acids 500 mg PO QDAY 09/09/22 07/12/23 History Lactobacillus acidophilus 10 mg PO DAILY 07/12/23 07/12/23 History (Acidophilus capsule) acyclovir 400 mg tablet 400 mg PO TID PRN genital herpes 07/12/23 07/12/23 History amitriptyline 50 mg tablet 50 mg PO HS 07/12/23 07/12/23 History amlodipine 10 mg tablet 10 mg PO HS 07/12/23 07/12/23 History cholecalciferol (vitamin D3) 25 25 mcg PO DAILY 07/12/23 07/12/23 History mcg (1,000 unit) tablet (Vitamin D3) ferrous sulfate 325 mg (65 mg 325 mg PO DAILY 07/12/23 07/12/23 History iron) tablet fluticasone fur. 100 mcg-umeclid 1 inh inhalation DAILY 07/12/23 07/12/23 History 62.5 mcg-vilant 25 mcg inhalat.powder (Trelegy Ellipta) omeprazole 40 mg capsule,delayed 40 mg PO DAILY 07/12/23 07/12/23 History release simvastatin 20 mg tablet 20 mg PO HS 07/12/23 07/12/23 History Allergies Allergy/AdvReac Type Severity Reaction Status Date / Time Sulfa (Sulfonamide Allergy Mild Rash Verified 06/06/23 10:22 Antibiotics) Exam Narrative: Exam Narrative: Examine her in her hospital room. Appears comfortable. Alert and oriented to self, place, time, situation. Articulate and cooperative. Hearing and vision are preserved. Normal external auditory canals and tympanic membranes bilaterally. Midline nasal septum with clear nasal discharge. Dentition in fair repair. Posterior pharynx benign. Midline trachea, normal thyroid. Neck supple. No adenopathy in the head and neck region. No CVA tenderness. On auscultation of her lungs she has decreased breath sounds in left base with bibasilar rales and scattered rhonchi and wheezing. Prolonged expiratory phase. Regular heart rate and rhythm. Normal S1-S2. Abdomen is active bowel sounds, soft, nontender. No rebound or guarding. Extremities with only trace edema. No focal neurologic deficits. Skin is intact. Const: Vital Signs, click to edit/add: Vital Signs - 24 hr 07/12/23 03:21 07/12/23 03:26 07/12/23 05:19 Temperature 98.6 F Pulse Rate [Left P ulse Oximeter] 114 H Pulse Rate [Right Pulse Oximeter] Respiratory Rate 20 Blood Pressure [Ri ght Arm] Blood Pressure [Ri ght Upper Arm] 124/78 Pulse Oximetry 78 L 83 L 90 Oxygen Delivery Me thod Room Air Nasal Cannula Nasal Cannula Oxygen Flow Rate 2 3 Fraction of Inspir ed Oxygen 07/12/23 05:40 07/12/23 06:50 07/12/23 08:10 Temperature 98.6 F 100.9 F H Pulse Rate [Left P ulse Oximeter] 110 H 94 Pulse Rate [Right Pulse Oximeter] Respiratory Rate 20 20 Blood Pressure [Ri ght Arm] 135/81 Blood Pressure [Ri ght Upper Arm] 122/68 Pulse Oximetry 80 L 88 89 Oxygen Delivery Me thod Nasal Cannula Nasal Cannula Oxygen Flow Rate 3 3 Fraction of Inspir ed Oxygen 07/12/23 09:15 07/12/23 12:34 07/12/23 12:53 Temperature 98.2 F Pulse Rate [Left P ulse Oximeter] Pulse Rate [Right Pulse Oximeter] 75 Respiratory Rate 22 20 Blood Pressure [Ri ght Arm] 114/69 Blood Pressure [Ri ght Upper Arm] Pulse Oximetry 89 88 Oxygen Delivery Me thod Nasal Cannula High Flow Nasal Ca nnula Oxygen Flow Rate 5 20 Fraction of Inspir ed Oxygen 42 42 07/12/23 13:49 07/12/23 14:30 Temperature Pulse Rate [Left P ulse Oximeter] Pulse Rate [Right Pulse Oximeter] Respiratory Rate Blood Pressure [Ri ght Arm] Blood Pressure [Ri ght Upper Arm] Pulse Oximetry Oxygen Delivery Me thod Oxygen Flow Rate 20 Fraction of Inspir ed Oxygen 42 42 Documenting provider has reviewed patient's vital signs: yes Hospitalist - H&P: Result Labs Labs: Short CBC 07/12/23 Range/Units 04:30 WBC 20.83 H (4.50-11.00) K/uL Hgb 14.2 (12.0-16.0) gm/dL Hct 41.9 (33.0-51.0) % Plt Count 307 (140-440) K/uL BMP 07/12/23 04:30 Sodium 136 Potassium 3.2 L Chloride 96 Carbon Dioxide 30 BUN 11 Creatinine 0.5 Glucose 201 H Calcium 8.5 Cardiac Enzymes 07/12/23 Range/Units 04:30 Troponin I < 0.01 L (0.01-0.04) ng/mL Liver Function 07/12/23 Range/Units 04:30 Total Bilirubin 1.4 (0.1-1.5) mg/dL AST 33 (12-35) U/L ALT 30 (4-35) U/L Alkaline Phosphatase 146 (40-150) U/L Albumin 3.6 (3.3-5.0) g/dL Urine 07/12/23 Range/Units 08:36 Urine Color [place] A (Yellow) Urine Appearance Slightly Cloudy A (Clear) Urine pH 6.0 (5.0-8.5) Ur Specific [place] 1.015 (1.000-1.030) Urine Protein 2+ A (Negative) Urine Glucose (UA) Negative (Negative) ECG Attestation: I personally reviewed and interpreted this ECG as follows: ECG interpretation date: 07/12/23 Prior ECG tracings: not available for review Interpretation: Sinus tachycardia, heart rate 103. No ischemic changes. Imaging Chest x-ray: Attestation: I have reviewed the pertinent imaging results. Radiologist's impression: Findings/Impression: Cardiovascular and mediastinum: Cardiomegaly present. Normal pulmonary vasculature and mediastinum. Lungs and pleural spaces: Moderate to large left-sided pleural effusion with adjacent atelectasis and/or infiltrate. Remainder of the lungs and pleural spaces are clear. No pneumothorax. Bones and soft tissues: No significant findings. Assessment and Plan Assessment and plan (1) Community acquired pneumonia: Problem comment: - chest x-ray 07/12/2023: Findings/Impression: Cardiovascular and mediastinum: Cardiomegaly present. Normal pulmonary vasculature and mediastinum. Lungs and pleural spaces: Moderate to large left-sided pleural effusion with adjacent atelectasis and/or infiltrate. Remainder of the lungs and pleural spaces are clear. No pneumothorax. Bones and soft tissues: No significant findings. - obtain CT scan of chest to assess for possible other etiology including neoplasm, pulmonary embolism - blood cultures obtained after IV antibiotics were started emergency department - on Zosyn and azithromycin Status: Acute (2) Pleural effusion on left: Problem comment: - parapneumonic effusion versus empyema versus other etiology - CT scan of chest ordered - consider needle thoracentesis for diagnostic purposes Status: Acute (3) Acute hypoxic respiratory failure: Problem comment: - multifactorial including from underlying COPD and new community-acquired pneumonia - requiring oxygen support. On high-flow oxygen as of 07/12/2023 Status: Acute (4) Chronic obstructive pulmonary disease: Problem comment: - patient acknowledges noncompliance with medication regimen and continued tobacco use Status: Acute (5) Tobacco dependence: Problem comment: - no interest in smoking cessation at this time Status: Acute (6) Opioid use disorder: Problem comment: - continue with usual dosing of buprenorphine Status: Acute (7) Psoriasis: Problem comment: - hold Cyclosporin while in hospital Status: Acute (8) Acute exacerbation of chronic obstructive pulmonary disease: Problem comment: - steroid burst therapy and bronchodilator therapy Status: Acute (9) Acute on chronic hypoxic respiratory failure: Problem comment: - continue with oxygen support - anticipate will qualify for home O2 after stabilization of conditions Status: Acute (10) Hypokalemia: Problem comment: - Potassium supplementation and monitor Status: Acute (11) Elevated d-dimer: Problem comment: - check CT scan of chest with PE protocol. Consider initiation of anticoagulation if PE positive. Status: Acute Plan 1. Reviewed impression and plan and recommendations with patient. Answered her questions. 2. Patient agreeable to above stated plans and recommendations.
[2023-07-12] MEDS: POTASSIUM CHLORIDE 10 MEQ CAPSULE ER 40 MEQ PO (18:03)
[2023-07-12] MEDS: SODIUM CHLORIDE 0.9 % (FLUSH) 10 ML SYRINGE 5 ML IVF (20:50)
[2023-07-12] MEDS: AMITRIPTYLINE 25 MG TABLET 50 MG PO (20:50)
[2023-07-12] MEDS: SIMVASTATIN 20 MG TABLET PO (20:50)
[2023-07-12] MEDS: BUPRENORPHINE-NALOX 8-2MG FILM 1 EACH SUBLINGUAL (20:50)
[2023-07-12] MEDS: AMLODIPINE 10 MG TABLET PO (20:50)
[2023-07-12] MEDS: hydrOXYzine pamoate 25 MG CAPSULE PO (21:11)
[2023-07-13] VITALS (17 sets, daily range): BP systolic 117–131; BP diastolic 69–95; PULSE 69–88; RESP 20–22; TEMP 36.1–36.9; O2SAT 88–92
[2023-07-13] MEDS: PIPERACILLIN/TAZOBACTAM 3.375 GM in 0.9 % SODIUM CHLORIDE Mini-bag 100 ML IVPB ×4 (00:48→18:40)
[2023-07-13] MEDS: 0.9 % SODIUM CHLORIDE 1000 ml 1,000 ML 125 ML IV (05:03)
[2023-07-13] MEDS: guaiFENesin 100 MG/ML CUP PO ×2 (05:03→21:24)
[2023-07-13 06:24] LABS: HCO3 VBG 31 mmol/L (21-28); Lactate* 1.1 mmol/L (0.5-1.9); PCO2 VBG 49 mmHG (40-50); PO2 VBG 42.7 mmHG (25-47); pH VBG 7.412 (7.32-7.43)
[2023-07-13 06:31] LABS: Basophils Percent Auto 0.1 % (0.0-3.0); Hematocrit 36.4 % (33.0-51.0); Hemoglobin* 12.4 gm/dL (12.0-16.0); Immature Granulocytes Pct Auto 0.7 %; Mean Corpuscular HGB Conc 34 gm/dL (32-36); Mean Corpuscular Hemoglobin 30 pg (26-34); Mean Corpuscular Volume 88 fL (80-100); Monocytes Percent Auto 4.2 % (0.0-11.0); Platelet Count* 309 K/uL (140-440); RDW Coefficient of Variation % 12.8 % (11.5-15.5); Red Blood Count 4.16 m/uL (4.00-5.20)
[2023-07-13 06:39] LABS: Slide Review Reflex No; White Blood Count* 28.16 K/uL (4.50-11.00)
[2023-07-13] MEDS: OMEPRAZOLE 20 MG CAPSULE DR 40 MG PO (06:46)
[2023-07-13 06:51] LABS: Chloride* 97 mmol/L (96-114); Potassium* 3.2 mmol/L (3.6-5.1); Sodium* 136 mmol/L (135-149)
[2023-07-13 06:54] LABS: Anion Gap 9 mEq/L (7-15); Blood Urea Nitrogen* 33 mg/dL (7-30); Carbon Dioxide* 30 mmol/L (20-32); Creatinine* 1.1 mg/dL (0.5-1.5); Estimated Glomerular Filt Rate 56 ml/min
[2023-07-13 06:55] LABS: Calcium* 8.4 mg/dL (8.4-10.6); Glucose* 185 mg/dL (60-115); Magnesium* 2.2 mg/dL (1.5-2.6); Phosphorus* 4.1 mg/dL (2.5-4.5)
[2023-07-13 07:10] LABS: Procalcitonin* 0.68 ng/mL (<0.50)
[2023-07-13 07:19] LABS: C Reactive Protein* 22.2 mg/dL (0.5-1.0); NT Pro B Type NatriureticPept* 646 pg/mL; Troponin I* < 0.01 ng/mL (0.01-0.04)
[2023-07-13] MEDS: AZITHROMYCIN 500 MG in 0.9 % SODIUM CHLORIDE 250 ml 250 ML 255 MG IVPB (08:30)
[2023-07-13] MEDS: IBUPROFEN 400 MG TABLET PO ×3 (08:30→17:29)
[2023-07-13] MEDS: ACETAMINOPHEN 325 MG TABLET 650 MG PO ×4 (08:30→21:18)
[2023-07-13] MEDS: IPRAT-ALBUT 0.5-2.5 MG/3 ML NEB 1 NEB IH ×3 (08:30→21:18)
[2023-07-13] MEDS: METOPROLOL SUCCINATE (XL) 25 MG TAB PO (08:30)
[2023-07-13] MEDS: BUPRENORPHINE-NALOX 8-2MG FILM 1.5 EACH SUBLINGUAL (08:31)
[2023-07-13] MEDS: buPROPion XL 150 MG TABLET 300 MG PO (08:31)
[2023-07-13] MEDS: predniSONE 20 MG TABLET 40 MG PO (08:31)
[2023-07-13 11:28] LABS: Cholesterol* 77 mg/dL (90-199)
[2023-07-13 11:29] LABS: Bilirubin Total* 0.7 mg/dL (0.1-1.5); Total Protein* 6.6 g/dL (6.0-8.3)
[2023-07-13 11:30] LABS: Lactate Dehydrogenase* 255 U/L (120-246)
[2023-07-13 11:41] LABS: Prothrombin Time 16.6 Seconds
[2023-07-13] MEDS: POTASSIUM CHLORIDE 10 MEQ CAPSULE ER 40 MEQ PO (11:48)
[2023-07-13 11:58] LABS: INR 1.25 (0.91-1.10)
--- NOTE | 2023-07-13 14:02 | PC.NURSE ---
Shift Summary 11-15: Patient pleasant and cooperative. Up independently after switching from hiflow to oxymask @ 5L. Ambulates well from bed to bathroom. Tolerating regular diet. No c/o pain. O2 sats between 87-91% on hiflow. Bilateral expiratory wheeze noted, currently has nebulizer running.
--- NOTE | 2023-07-13 15:25 | PM.EN ---
Chart Event Note Chart Event Note: Asked to evaluate patient for diagnostic thoracentesis. US evaluation demonstrated a very organized collection of material near the lower lobe. 2 other areas of loculation visualized and too small to be sampled safely. Unable to find an appropriate window of pleural fluid to perform procedure at this time.
--- NOTE | 2023-07-13 15:39 | P.IMPN_ITS ---
Progress Note: A&P Assessment and plan (1) Community acquired pneumonia: Problem details: - chest x-ray 07/12/2023: Findings/Impression: Cardiovascular and mediastinum: Cardiomegaly present. Normal pulmonary vasculature and mediastinum. Lungs and pleural spaces: Moderate to large left-sided pleural effusion with adjacent atelectasis and/or infiltrate. Remainder of the lungs and pleural spaces are clear. No pneumothorax. Bones and soft tissues: No significant findings. - obtain CT scan of chest with PE protocol obtained 07/12/2023: IMPRESSION: 1. No CT evidence of pulmonary thromboembolic disease. 2. [id number]-ti-lyynu left pleural effusion with features of loculation. Consider aspiration and cytological analysis given unilateral pleural effusion if not previously performed. 3. No discrete consolidation. - blood cultures obtained after IV antibiotics were started emergency department under still negative - on Zosyn and azithromycin for now - no further febrile episodes since admission to the hospital initiation of intervention as specified. Status: Acute (2) Pleural effusion on left: Problem details: - parapneumonic effusion versus empyema versus other etiology - CT scan of chest ordered - I consulted our general surgeon to see whether not this patient is amenable to diagnostic needle thoracentesis with ultrasound guidance. She indicates the loculations are small enough such that the risks outweigh the potential benefits to perform this procedure here at this time. Consider discussion with Interventional Radiology. - I attempted transfer patient to tertiary medical facility, without bed availability today. Was able to make an outpatient appointment for patient to be seen in Pulmonary Medicine, [place], [place], at 8:00 a.m. on Tuesday07/19/2023. Status: Acute (3) Acute hypoxic respiratory failure: Problem details: - multifactorial including from underlying COPD and new community-acquired pneumonia - requiring oxygen support. On high-flow oxygen as of 07/12/2023 Status: Acute (4) Chronic obstructive pulmonary disease: Problem details: - patient acknowledges noncompliance with medication regimen and continued tobacco use Status: Acute (5) Tobacco dependence: Problem details: - no interest in smoking cessation at this time Status: Acute (6) Opioid use disorder: Problem details: - continue with usual dosing of buprenorphine Status: Acute (7) Psoriasis: Problem details: - hold Cyclosporin while in hospital Status: Acute (8) Acute exacerbation of chronic obstructive pulmonary disease: Problem details: - steroid burst therapy and bronchodilator therapy Status: Acute (9) Acute on chronic hypoxic respiratory failure: Problem details: - continue with oxygen support - anticipate will qualify for home O2 after stabilization of conditions Status: Acute (10) Hypokalemia: Problem details: - Potassium supplementation and monitor Status: Acute (11) Elevated d-dimer: Problem details: - CT scan of chest with PE protocol negative for pulmonary emboli. Status: Acute Plan 1. Reviewed impression with patient. Answered her questions. She is agreeable with above stated plans and recommendations at this time. Time Spent With Patient Total time spent: 40 minutes Subjective Date Seen: 07/13/23 Interval history: Hospital day 2. Continues to be on high-flow oxygen via nasal cannula, saturating 86-90%. Still has cough intermittently productive of yellow-green sputum. Denies hemoptysis. Notes that left-sided chest discomfort is improved today from yesterday. Denies any additional fevers, rigors, diaphoresis since admission to the hospital and initiation of treatments here. Exam Narrative: Exam Narrative: Examined patient in her room. Appears comfortable no acute distress. On high-flow oxygen via nasal cannula 20 liters/minute, FiO2 40%. Alert and oriented to self, place, time, situation. Friendly, articulate, cooperative. Lungs still have bibasilar rales left more so than right with occasional scattered rhonchi and no wheezing today. This is improved from yesterday when she had wheezing. Heart tones with regular rhythm, normal S1-S2. Abdomen with active bowel sounds, soft, nontender. No lower extremity edema. No focal neurologic deficits. Const: Vital Signs, click to edit/add: Vital Signs - 24 hr 07/12/23 16:00 07/12/23 18:00 07/12/23 19:00 Temperature 98.1 F Pulse Rate [Right Pulse Oximeter] 80 Respiratory Rate 20 Blood Pressure [Le ft Arm] Blood Pressure [Ri ght Arm] 129/78 Pulse Oximetry 89 Oxygen Delivery Me thod High Flow Nasal Ca nnula Oxygen Flow Rate 20 Fraction of Inspir ed Oxygen 42 42 42 07/12/23 20:00 07/12/23 22:00 07/12/23 23:00 Temperature Pulse Rate [Right Pulse Oximeter] 80 Respiratory Rate 20 Blood Pressure [Le ft Arm] Blood Pressure [Ri ght Arm] Pulse Oximetry Oxygen Delivery Me thod Oxygen Flow Rate Fraction of Inspir ed Oxygen 42 42 07/12/23 23:00 07/13/23 00:00 07/13/23 02:00 Temperature 98.4 F Pulse Rate [Right Pulse Oximeter] 82 Respiratory Rate 20 Blood Pressure [Le ft Arm] Blood Pressure [Ri ght Arm] 114/67 Pulse Oximetry 89 Oxygen Delivery Me thod High Flow Nasal Ca nnula Oxygen Flow Rate 20 Fraction of Inspir ed Oxygen 42 42 42 07/13/23 04:00 07/13/23 05:34 07/13/23 06:00 Temperature 97 F L Pulse Rate [Right Pulse Oximeter] 71 Respiratory Rate 20 Blood Pressure [Le ft Arm] 120/71 Blood Pressure [Ri ght Arm] Pulse Oximetry 88 Oxygen Delivery Me thod High Flow Nasal Ca nnula Oxygen Flow Rate 20 Fraction of Inspir ed Oxygen 42 42 42 07/13/23 07:45 07/13/23 07:45 07/13/23 08:10 Temperature 97.8 F Pulse Rate [Right Pulse Oximeter] 88 88 Respiratory Rate 22 22 Blood Pressure [Le ft Arm] 124/77 Blood Pressure [Ri ght Arm] Pulse Oximetry 92 Oxygen Delivery Me thod High Flow Nasal Ca nnula Oxygen Flow Rate 20 Fraction of Inspir ed Oxygen 42 42 07/13/23 08:10 07/13/23 10:00 07/13/23 11:00 Temperature 97.7 F Pulse Rate [Right Pulse Oximeter] 75 Respiratory Rate 20 Blood Pressure [Le ft Arm] 131/69 Blood Pressure [Ri ght Arm] Pulse Oximetry 92 89 Oxygen Delivery Me thod High Flow Nasal Ca nnula Oxygen Flow Rate 20 Fraction of Inspir ed Oxygen 42 42 07/13/23 12:33 07/13/23 14:00 Temperature Pulse Rate [Right Pulse Oximeter] Respiratory Rate Blood Pressure [Le ft Arm] Blood Pressure [Ri ght Arm] Pulse Oximetry Oxygen Delivery Me thod Oxygen Flow Rate 20 Fraction of Inspir ed Oxygen 42 42 Labs Labs: Laboratory Results - last 24 hr 07/13/23 05:55 WBC 28.16 H* RBC 4.16 Hgb 12.4 Hct 36.4 MCV 88 MCH 30 MCHC 34 RDW Coeff of Sher 12.8 Plt Count 309 Neut % (Auto) 92.0 H Lymph % (Auto) 3.0 L [place] % (Auto) 4.2 Eos % (Auto) 0.0 Baso % (Auto) 0.1 Neut # (Auto) 25.90 H Lymph # (Auto) 0.80 L [place] # (Auto) 1.20 H Eos # (Auto) 0.00 Baso # (Auto) 0.00 Abs Immat Gran (auto) 0.20 Imm/Tot Granulo (auto) 0.7 INR 1.25 H VBG pH 7.412 VBG pCO2 49 VBG pO2 42.7 VBG HCO3 31 H Sodium 136 Potassium 3.2 L Chloride 97 Carbon Dioxide 30 Anion Gap 9 BUN 33 H Creatinine 1.1 Estimated Creat Clear 45.20 Estimated GFR 56 Glucose 185 H Lactate 1.1 Calcium 8.4 Phosphorus 4.1 Magnesium 2.2 Total Bilirubin 0.7 Lactate Dehydrogenase 255 H Troponin I < 0.01 L C-Reactive Protein 22.2 H NT-Pro-B Natriuret Pep 646 Total Protein 6.6 Albumin 3.0 L Cholesterol 77 L Procalcitonin 0.[address] scan of chest with PE protocol: Attestation: I have reviewed the pertinent imaging results. Radiologist's impression: IMPRESSION: 1. No CT evidence of pulmonary thromboembolic disease. 2. [id number]-[id number] left pleural effusion with features of loculation. Consider aspiration and cytological analysis given unilateral pleural effusion if not previously performed. 3. No discrete consolidation.
[2023-07-13] MEDS: AMITRIPTYLINE 25 MG TABLET 50 MG PO (21:18)
[2023-07-13] MEDS: BUPRENORPHINE-NALOX 8-2MG FILM 1 EACH SUBLINGUAL (21:19)
[2023-07-13] MEDS: SIMVASTATIN 20 MG TABLET PO (21:19)
[2023-07-13] MEDS: AMLODIPINE 10 MG TABLET PO (21:19)
[2023-07-13] MEDS: SODIUM CHLORIDE 0.9 % (FLUSH) 10 ML SYRINGE 5 ML IVF (21:20)
--- NOTE | 2023-07-13 23:47 | PC.NURSE ---
End of Shift: Patient pleasant and cooperative. Afebrile. C/o pain in left side 12/29 and scheduled Tylenol and Ibuprofen effective. Continues on HFNC and sats 88-91%. Up independently in room. Tolerating regular diet with no nausea. No BM for several days, offered PRN medications and declined at this time.
[2023-07-14] VITALS (15 sets, daily range): BP systolic 97–134; BP diastolic 70–81; PULSE 70–88; RESP 18–24; TEMP 36.6–37.2; O2SAT 88–89
[2023-07-14] MEDS: PIPERACILLIN/TAZOBACTAM 3.375 GM in 0.9 % SODIUM CHLORIDE Mini-bag 100 ML IVPB ×4 (00:19→18:08)
[2023-07-14] MEDS: 0.9 % SODIUM CHLORIDE 250 ml IV (00:21)
[2023-07-14] MEDS: SODIUM CHLORIDE 0.9 % (FLUSH) 10 ML SYRINGE 5 ML IVF ×3 (00:22→18:08)
[2023-07-14] MEDS: IPRAT-ALBUT 0.5-2.5 MG/3 ML NEB 1 NEB IH ×4 (02:42→20:16)
--- NOTE | 2023-07-14 06:07 | PC.NURSE ---
[id number] Pt ind in room, tolerating walking to br well. remains on HFNC 20L 42%. afebrile this shift. coughing up thick yellow phlegm. sats between 88-90% but does decrease to low 80's with activity. acknowledging L sided rib pain with coughing, did not request any PRN, encouraged pt to brace side while coughing.
[2023-07-14] MEDS: OMEPRAZOLE 20 MG CAPSULE DR 40 MG PO (06:32)
[2023-07-14 07:01] LABS: HCO3 VBG 29 mmol/L (21-28); PCO2 VBG 49 mmHG (40-50); PO2 VBG 46.2 mmHG (25-47); pH VBG 7.386 (7.32-7.43)
[2023-07-14 07:19] LABS: Hematocrit 34.9 % (33.0-51.0); Hemoglobin* 11.6 gm/dL (12.0-16.0); Immature Granulocytes Pct Auto 2.5 %; Lymphocytes Percent Auto 4.1 % (20-44); Mean Corpuscular HGB Conc 33 gm/dL (32-36); Mean Corpuscular Hemoglobin 30 pg (26-34); Mean Corpuscular Volume 89 fL (80-100); Monocytes Percent Auto 4.5 % (0.0-11.0); Neutrophils Percent Auto 88.9 % (42.0-72.0); Platelet Count* 293 K/uL (140-440); RDW Coefficient of Variation % 13.1 % (11.5-15.5); Red Blood Count 3.91 m/uL (4.00-5.20); White Blood Count* 24.83 K/uL (4.50-11.00)
[2023-07-14 07:23] LABS: Slide Review Reflex No
[2023-07-14 07:34] LABS: Chloride* 102 mmol/L (96-114); Potassium* 3.4 mmol/L (3.6-5.1); Sodium* 139 mmol/L (135-149)
[2023-07-14 07:37] LABS: Anion Gap 6 mEq/L (7-15); Blood Urea Nitrogen* 30 mg/dL (7-30); Carbon Dioxide* 31 mmol/L (20-32); Est. Creatinine Clearance* 49.72; Estimated Glomerular Filt Rate 63 ml/min; Glucose* 151 mg/dL (60-115)
[2023-07-14 07:38] LABS: Calcium* 8.3 mg/dL (8.4-10.6)
[2023-07-14] MEDS: AZITHROMYCIN 500 MG in 0.9 % SODIUM CHLORIDE 250 ml 250 ML 255 MG IVPB (09:10)
[2023-07-14] MEDS: IBUPROFEN 400 MG TABLET PO ×3 (09:13→17:26)
[2023-07-14] MEDS: predniSONE 20 MG TABLET 40 MG PO (09:13)
[2023-07-14] MEDS: ACETAMINOPHEN 325 MG TABLET 650 MG PO ×4 (09:13→20:16)
[2023-07-14] MEDS: METOPROLOL SUCCINATE (XL) 25 MG TAB PO (09:14)
[2023-07-14] MEDS: buPROPion XL 150 MG TABLET 300 MG PO (09:14)
[2023-07-14] MEDS: BUPRENORPHINE-NALOX 8-2MG FILM 1.5 EACH SUBLINGUAL (09:25)
--- NOTE | 2023-07-14 14:45 | PC.NURSE ---
Shift Summary: Patient pleasant and cooperative. Up independently after staff assists with hiflow. Hiflow now set to 25L and 45% via RT. Tolerating regular diet. Vitals stable, o2 sats 87-91%. Denies pain, some SOB noted following ambulation.
--- NOTE | 2023-07-14 15:24 | PM.IMPN1 ---
Progress Note: A&P Assessment and plan (1) Community acquired pneumonia: Problem details: - chest x-ray 07/12/2023: Findings/Impression: Cardiovascular and mediastinum: Cardiomegaly present. Normal pulmonary vasculature and mediastinum. Lungs and pleural spaces: Moderate to large left-sided pleural effusion with adjacent atelectasis and/or infiltrate. Remainder of the lungs and pleural spaces are clear. No pneumothorax. Bones and soft tissues: No significant findings. - obtain CT scan of chest with PE protocol obtained 07/12/2023: IMPRESSION: 1. No CT evidence of pulmonary thromboembolic disease. 2. [id number] left pleural effusion with features of loculation. Consider aspiration and cytological analysis given unilateral pleural effusion if not previously performed. 3. No discrete consolidation. - blood cultures obtained after IV antibiotics were started emergency department under still negative - on Zosyn and azithromycin for now - no further febrile episodes since admission to the hospital initiation of intervention as specified. - WC down to 24.5 from 28.2 yesterday. Status: Acute (2) Pleural effusion on left: Problem details: - parapneumonic effusion versus empyema versus other etiology - CT scan of chest ordered - I consulted our general surgeon to see whether not this patient is amenable to diagnostic needle thoracentesis with ultrasound guidance. She indicates the loculations are small enough such that the risks outweigh the potential benefits to perform this procedure here at this time. Consider discussion with Interventional Radiology. - I attempted transfer patient to tertiary medical facility, without bed availability today. Was able to make an outpatient appointment for patient to be seen in Pulmonary Medicine, [place], [place], at 8:00 a.m. on Tuesday07/19/2023. Status: Acute (3) Acute hypoxic respiratory failure: Problem details: - multifactorial including from underlying COPD and new community-acquired pneumonia - requiring oxygen support. On high-flow oxygen as of 07/12/2023 Status: Acute (4) Chronic obstructive pulmonary disease: Problem details: - patient acknowledges noncompliance with medication regimen and continued tobacco use - on adequate regimen at this time including burst dose of steroids. Status: Acute (5) Tobacco dependence: Problem details: - no interest in smoking cessation at this time Status: Acute (6) Opioid use disorder: Problem details: - continue with usual dosing of buprenorphine Status: Acute (7) Psoriasis: Problem details: - hold Cyclosporin while in hospital Status: Acute (8) Acute exacerbation of chronic obstructive pulmonary disease: Problem details: - steroid burst therapy and bronchodilator therapy Status: Acute (9) Acute on chronic hypoxic respiratory failure: Problem details: - continue with oxygen support - anticipate will qualify for home O2 after stabilization of conditions Status: Acute (10) Hypokalemia: Problem details: - Potassium supplementation and monitor Status: Acute (11) Elevated d-dimer: Problem details: - CT scan of chest with PE protocol negative for pulmonary emboli. Status: Acute Plan 1. Reviewed impression with patient. Answered her questions. 2. Patient agreeable with above stated plans and recommendations at this time. 3. Patient understands that if her condition does not improve substantially and or her condition worsens that we may still need to be talking about possible transfer to a tertiary medical facility that has additional services which we do not have in our [facility] including Pulmonary Medicine. 4. Will order urine antigen for strep pneumo and Legionella. Time Spent With Patient Total time spent: 35 minute Subjective Date Seen: 07/14/23 Interval history: Hospital day 3. Continues to be on high-flow oxygen via nasal cannula, 25 liters/minute with FiO2 of 45%, respiratory rate 18 at rest, saturating 86-90%. With her oxygen off she continues to saturate 70-78% at rest. Still has cough intermittently productive of yellow-green sputum. Denies hemoptysis. Notes that left-sided chest discomfort is improved today from yesterday. Denies any additional fevers, rigors, diaphoresis since admission to the hospital and initiation of treatments here. Wonders when she can return home. Exam Narrative: Exam Narrative: I walk into her exam room to visit her today and she is sound asleep with her oxygen off saturating 70-78% on room air at rest. I awaken her and replace the high-flow oxygen therapy on her via nasal cannula and she saturates 86-89%. Appears comfortable no acute distress. Alert, oriented to self, place, time, situation. Friendly, articulate. Right lung field is clear today. On the left she still has some inspiratory rales mcfp up. No wheezing or rhonchi today. Heart tones with regular rhythm. Abdomen with active bowel sounds, soft, nontender. Extremities without edema. No focal motor neurologic deficits. Const: Vital Signs, click to edit/add: Vital Signs - 24 hr 07/13/23 16:00 07/13/23 18:00 07/13/23 19:00 Temperature 98.5 F Pulse Rate [Right Pulse Oximeter] 74 Respiratory Rate 22 Blood Pressure [Le ft Arm] 118/95 H Pulse Oximetry 90 Oxygen Delivery Me thod Nasal Cannula Oxygen Flow Rate 20 Fraction of Inspir ed Oxygen 42 42 42 07/13/23 20:00 07/13/23 22:00 07/13/23 23:00 Temperature Pulse Rate [Right Pulse Oximeter] Respiratory Rate 22 Blood Pressure [Le ft Arm] Pulse Oximetry Oxygen Delivery Me thod Oxygen Flow Rate Fraction of Inspir ed Oxygen 42 42 07/13/23 23:00 07/14/23 00:00 07/14/23 02:00 Temperature 98.3 F Pulse Rate [Right Pulse Oximeter] 69 Respiratory Rate 22 Blood Pressure [Le ft Arm] 117/70 Pulse Oximetry 91 Oxygen Delivery Me thod High Flow Nasal Ca nnula Oxygen Flow Rate 20 Fraction of Inspir ed Oxygen 42 42 42 07/14/23 02:59 07/14/23 04:00 07/14/23 06:00 Temperature 98.5 F Pulse Rate [Right Pulse Oximeter] 70 Respiratory Rate 22 Blood Pressure [Le ft Arm] 108/70 Pulse Oximetry 89 Oxygen Delivery Me thod High Flow Nasal Ca nnula Oxygen Flow Rate 20 Fraction of Inspir ed Oxygen 42 42 42 07/14/23 08:00 07/14/23 08:00 07/14/23 08:00 Temperature 98 F Pulse Rate [Right Pulse Oximeter] 74 Respiratory Rate 20 Blood Pressure [Le ft Arm] 97/78 Pulse Oximetry 88 88 Oxygen Delivery Me thod High Flow Nasal Ca nnula Oxygen Flow Rate 25 Fraction of Inspir ed Oxygen 45 45 07/14/23 08:30 07/14/23 11:22 07/14/23 11:26 Temperature 98.1 F Pulse Rate [Right Pulse Oximeter] 70 Respiratory Rate 18 Blood Pressure [Le ft Arm] 115/77 118/70 Pulse Oximetry 89 Oxygen Delivery Me thod High Flow Nasal Ca nnula Oxygen Flow Rate Fraction of Inspir ed Oxygen 45 07/14/23 13:39 Temperature Pulse Rate [Right Pulse Oximeter] Respiratory Rate Blood Pressure [Le ft Arm] Pulse Oximetry Oxygen Delivery Me thod Oxygen Flow Rate Fraction of Inspir ed Oxygen 45 Labs Labs: Laboratory Results - last 24 hr 07/14/23 Unknown WBC 24.83 H RBC 3.91 L Hgb 11.6 L Hct 34.9 MCV 89 MCH 30 MCHC 33 RDW Coeff of Sher 13.1 Plt Count 293 Neut % (Auto) 88.9 H Lymph % (Auto) 4.1 L [place] % (Auto) 4.5 Eos % (Auto) 0.0 Baso % (Auto) 0.0 Neut # (Auto) 22.10 H Lymph # (Auto) 1.00 [place] # (Auto) 1.10 H Eos # (Auto) 0.00 Baso # (Auto) 0.00 Abs Immat Gran (auto) 0.60 H Imm/Tot Granulo (auto) 2.5 VBG pH 7.386 VBG pCO2 49 VBG pO2 46.2 VBG HCO3 29 H Sodium 139 Potassium 3.4 L Chloride 102 Carbon Dioxide 31 Anion Gap 6 L BUN 30 Creatinine 1.0 Estimated Creat Clear 49.72 Estimated GFR 63 Glucose 151 H Calcium 8.3 L
[2023-07-14 16:56] LABS: Legionella pneumo Ag Urine L. pneumo Negative (Negative); S pneumo Ag Urine S. pneumo Negative (Negative)
[2023-07-14] MEDS: AMLODIPINE 10 MG TABLET 5 MG PO (20:15)
[2023-07-14] MEDS: AMITRIPTYLINE 25 MG TABLET 50 MG PO (20:15)
[2023-07-14] MEDS: BUPRENORPHINE-NALOX 8-2MG FILM 1 EACH SUBLINGUAL (20:15)
[2023-07-14] MEDS: SIMVASTATIN 20 MG TABLET PO (20:16)
[2023-07-15] VITALS (10 sets, daily range): BP systolic 133–150; BP diastolic 77–87; PULSE 67–89; RESP 18–22; TEMP 36.6–36.9; O2SAT 87–91
[2023-07-15] MEDS: PIPERACILLIN/TAZOBACTAM 3.375 GM in 0.9 % SODIUM CHLORIDE Mini-bag 100 ML IVPB ×4 (00:29→18:47)
[2023-07-15] MEDS: SODIUM CHLORIDE 0.9 % (FLUSH) 10 ML SYRINGE 5 ML IVF ×4 (00:30→20:41)
[2023-07-15] MEDS: guaiFENesin 100 MG/ML CUP PO ×2 (00:43→06:32)
[2023-07-15] MEDS: IPRAT-ALBUT 0.5-2.5 MG/3 ML NEB 1 NEB IH ×3 (02:43→20:39)
--- NOTE | 2023-07-15 06:04 | PC.NURSE ---
[id number] Pt up in chair for a few hours during the evening, tolerated well. IND in room, she does remove HiFlo while ambulating to BR with sats in the low 80's and SOB upon return. remains afebrile. intermittent coughing throughout shift occasionally producing thick yellow-green phlegm. no N/V.
[2023-07-15] MEDS: OMEPRAZOLE 20 MG CAPSULE DR 40 MG PO (06:32)
[2023-07-15] MEDS: 0.9 % SODIUM CHLORIDE 250 ml IV (06:32)
[2023-07-15 06:54] LABS: HCO3 VBG 30 mmol/L (21-28); PCO2 VBG 49 mmHG (40-50); PO2 VBG 52.2 mmHG (25-47); pH VBG 7.398 (7.32-7.43)
[2023-07-15 07:13] LABS: Basophils Percent Auto 0.1 % (0.0-3.0); Eosinophils Percent Auto 0.1 % (0.0-7.0); Hematocrit 34.3 % (33.0-51.0); Hemoglobin* 11.3 gm/dL (12.0-16.0); Immature Granulocytes Pct Auto 1.8 %; Lymphocytes Percent Auto 4.9 % (20-44); Mean Corpuscular HGB Conc 33 gm/dL (32-36); Mean Corpuscular Hemoglobin 30 pg (26-34); Mean Corpuscular Volume 90 fL (80-100); Monocytes Percent Auto 5.1 % (0.0-11.0); Platelet Count* 290 K/uL (140-440); RDW Coefficient of Variation % 13.2 % (11.5-15.5); Red Blood Count 3.83 m/uL (4.00-5.20); White Blood Count* 16.92 K/uL (4.50-11.00)
[2023-07-15 07:15] LABS: Slide Review Reflex No
[2023-07-15 07:36] LABS: Chloride* 105 mmol/L (96-114); Potassium* 3.4 mmol/L (3.6-5.1); Sodium* 141 mmol/L (135-149)
[2023-07-15 07:38] LABS: Creatinine* 0.7 mg/dL (0.5-1.5); Est. Creatinine Clearance* 49.72; Estimated Glomerular Filt Rate 97 ml/min
[2023-07-15 07:39] LABS: Anion Gap 7 mEq/L (7-15); Blood Urea Nitrogen* 18 mg/dL (7-30); Carbon Dioxide* 29 mmol/L (20-32); Glucose* 225 mg/dL (60-115)
[2023-07-15] MEDS: predniSONE 20 MG TABLET 40 MG PO (08:11)
[2023-07-15] MEDS: METOPROLOL SUCCINATE (XL) 25 MG TAB PO (08:11)
[2023-07-15] MEDS: BUPRENORPHINE-NALOX 8-2MG FILM 1.5 EACH SUBLINGUAL (08:11)
[2023-07-15] MEDS: IBUPROFEN 400 MG TABLET PO ×3 (08:12→17:16)
[2023-07-15] MEDS: buPROPion XL 150 MG TABLET 300 MG PO (08:12)
[2023-07-15] MEDS: ACETAMINOPHEN 325 MG TABLET 650 MG PO ×4 (08:32→20:40)
[2023-07-15] MEDS: AZITHROMYCIN 500 MG in 0.9 % SODIUM CHLORIDE 250 ml 250 ML 255 MG IVPB (08:32)
--- NOTE | 2023-07-15 12:39 | PM.IMPN1 ---
Progress Note: A&P Assessment and plan (1) Community acquired pneumonia: Problem details: - chest x-ray 07/12/2023: Findings/Impression: Cardiovascular and mediastinum: Cardiomegaly present. Normal pulmonary vasculature and mediastinum. Lungs and pleural spaces: Moderate to large left-sided pleural effusion with adjacent atelectasis and/or infiltrate. Remainder of the lungs and pleural spaces are clear. No pneumothorax. Bones and soft tissues: No significant findings. - elevated ddimer - CT scan of chest with PE protocol obtained 07/12/2023: IMPRESSION: 1. No CT evidence of pulmonary thromboembolic disease. 2. Tjckbkib-eo-cikpi left pleural effusion with features of loculation. Consider aspiration and cytological analysis given unilateral pleural effusion if not previously performed. 3. No discrete consolidation. - blood cultures obtained after IV antibiotics were started emergency department negative. Strep pneumo/Legionella negative - on Zosyn and azithromycin for now - no further febrile episodes since admission to the hospital initiation of intervention as specified - WC continues to down trend - Mucinex bid, Aerobika - sputum culture ordered Status: Acute (2) Pleural effusion on left: Problem details: - parapneumonic effusion versus empyema versus other etiology - CT scan of chest shows [id number] left pleural effusion with features of loculation - General surgeon consulted to see whether not this patient is amenable to diagnostic needle thoracentesis with ultrasound guidance. She indicates the loculations are small enough such that the risks outweigh the potential benefits to perform this procedure here at this time. - Attempted transfer of patient to tertiary medical facility, without bed availability 07/14. Was able to make an outpatient appointment for patient to be seen in Pulmonary Medicine, [place], [place], at 8:00 a.m. on Tuesday07/19/2023. - continue current cares. Consider repeat CXR 1-2 days to reassess for improvement. Consider discussion with Interventional Radiology if no improvement. Status: Acute (3) Acute on chronic hypoxic respiratory failure: Problem details: - multifactorial including from underlying COPD and new community-acquired pneumonia, current smoker - requiring oxygen support. On high-flow oxygen as of 07/12/2023 - RT for pulmonary support - anticipate will qualify for home O2 after stabilization of conditions - BNP ordered. No previous ECHO found, ordered. Will give one time dose Lasix 40mg IV with noted trace peripheral edema. Status: Acute (4) Acute exacerbation of chronic obstructive pulmonary disease: Problem details: - patient acknowledges noncompliance with medication regimen and continued tobacco use (3/4 PPD) - on adequate regimen at this time including burst dose of steroids (acute hyperglycemia, continue to monitor), bronchodilators - encouraged patient to have someone bring in her Trelegy inhaler Status: Acute (5) Tobacco dependence: Problem details: - no interest in smoking cessation at this time Status: Acute (6) Opioid use disorder: Problem details: - continue with usual dosing of buprenorphine Status: Acute (7) Psoriasis: Problem details: - hold Cyclosporin while in hospital Status: Acute (8) Hypokalemia: Problem details: - Potassium supplementation and monitor, recheck in am following one time lasix dose Status: Acute Time Spent With Patient Total time spent: Total time spent caring for the patient today was 60 minutes. This includes time spent for the visit reviewing the chart, time spent during the visit, time spent after the visit and documentation and planning in coordination of care. Subjective Date Seen: 07/15/23 Interval history: Hospital day 4. Overall, feeling better and inquires if she can go home despite needing significant supplemental oxygen support. Continues to be on high-flow oxygen via nasal cannula, 25 liters/minute (up from 20L) with FiO2 of 45%, respiratory rate stable at rest, saturating 87-89%. With her oxygen off she continues to saturate 70-78% at rest. Productive cough. Sputum culture ordered. Denies chest pain today. Remains afebrile. Tolerating orals without nausea vomiting. Exam Narrative: Exam Narrative: PHYSICAL EXAM General: Sitting up in chair, very pleasant, conversant, NAD HEENT: Normocephalic, atraumatic, sclera white, EOMI, oral mucosa moist Cardiovascular: RRR, S1S2. Trace pitting edema Pulmonary: Diffusely diminished without rhonchi, rales, expiratory wheezes. Converses easily without dyspnea. Neurological: Alert, answering questions appropriately, cranial nerves intact, no focal findings Extremities: No gross joint deformity or swelling. AROMI. Neurovascularly intact Skin: Warm, dry. Const: Vital Signs, click to edit/add: Vital Signs - 24 hr 07/14/23 13:39 07/14/23 15:00 07/14/23 15:00 Temperature Pulse Rate [Right Pulse Oximeter] Respiratory Rate 22 Blood Pressure [Le ft Arm] Pulse Oximetry Oxygen Delivery Me thod Oxygen Flow Rate Fraction of Inspir ed Oxygen 45 45 07/14/23 15:00 07/14/23 16:59 07/14/23 18:14 Temperature 98.9 F Pulse Rate [Right Pulse Oximeter] 86 Respiratory Rate 22 Blood Pressure [Le ft Arm] 128/75 Pulse Oximetry 89 Oxygen Delivery Me thod High Flow Nasal Ca nnula Oxygen Flow Rate 25 Fraction of Inspir ed Oxygen 45 45 45 07/14/23 18:14 07/14/23 21:00 07/14/23 23:00 Temperature 98.5 F Pulse Rate [Right Pulse Oximeter] 88 Respiratory Rate 24 Blood Pressure [Le ft Arm] 134/81 Pulse Oximetry 88 Oxygen Delivery Me thod High Flow Nasal Ca nnula Oxygen Flow Rate 25 Fraction of Inspir ed Oxygen 45 45 45 07/14/23 23:00 07/15/23 01:00 07/15/23 03:00 Temperature Pulse Rate [Right Pulse Oximeter] Respiratory Rate 24 Blood Pressure [Le ft Arm] Pulse Oximetry Oxygen Delivery Me thod Oxygen Flow Rate Fraction of Inspir ed Oxygen 45 45 07/15/23 03:00 07/15/23 05:00 07/15/23 07:00 Temperature Pulse Rate [Right Pulse Oximeter] 67 Respiratory Rate 18 Blood Pressure [Le ft Arm] Pulse Oximetry 87 L Oxygen Delivery Me thod High Flow Nasal Ca nnula Oxygen Flow Rate 25 Fraction of Inspir ed Oxygen 45 45 45 07/15/23 07:00 07/15/23 07:00 07/15/23 07:00 Temperature Pulse Rate [Right Pulse Oximeter] 89 Respiratory Rate 22 Blood Pressure [Le ft Arm] 150/87 H Pulse Oximetry 90 90 Oxygen Delivery Me thod High Flow Nasal Ca nnula Oxygen Flow Rate Fraction of Inspir ed Oxygen 45 07/15/23 09:00 07/15/23 11:00 07/15/23 11:00 Temperature 98.4 F Pulse Rate [Right Pulse Oximeter] 85 Respiratory Rate 22 Blood Pressure [Le ft Arm] 133/77 Pulse Oximetry 87 L Oxygen Delivery Me thod High Flow Nasal Ca nnula Oxygen Flow Rate 25 Fraction of Inspir ed Oxygen 45 45 Labs Labs: Laboratory Results - last 24 hr 07/14/23 07/15/23 16:20 06:45 WBC 16.92 H RBC 3.83 L Hgb 11.3 L Hct 34.3 MCV 90 MCH 30 MCHC 33 RDW Coeff of Sher 13.2 Plt Count 290 Neut % (Auto) 88.0 H Lymph % (Auto) 4.9 L [place] % (Auto) 5.1 Eos % (Auto) 0.1 Baso % (Auto) 0.1 Neut # (Auto) 14.90 H Lymph # (Auto) 0.80 L [place] # (Auto) 0.90 Eos # (Auto) 0.00 Baso # (Auto) 0.00 Abs Immat Gran (auto) 0.30 Imm/Tot Granulo (auto) 1.8 VBG pH 7.398 VBG pCO2 49 VBG pO2 52.2 H VBG HCO3 30 H Sodium 141 Potassium 3.4 L Chloride 105 Carbon Dioxide 29 Anion Gap 7 BUN 18 Creatinine 0.7 Estimated Creat Clear 49.72 Estimated GFR 97 Glucose 225 H Calcium 8.0 L Urine L. pneumophilia Ag L. pneumo Negative Urine Strep pneumoniae Ag S. pneumo Negative
[2023-07-15 13:35] LABS: NT Pro B Type NatriureticPept* 1280 pg/mL
[2023-07-15] MEDS: FUROSEMIDE 10 MG/ML inj 40 MG IVP (16:15)
--- NOTE | 2023-07-15 18:22 | PC.NURSE ---
End of Shift: Patient is alert and orientated, up ad nir in her room. The patient was educated by RN and respiratory therapy to wear oxy mask to the BR to help her recover from SOB with exertion. She either forgets to do this or does not want to take the time to do this. Remains on high flow, titrated FO2 % from 45 to 35. Increased from 25 L to 30 L per respiratory's instructions. Appetite is adequate... drinking fluids frequently. IV Lasix was given as a 1x dose per MD orders. Dry intermittent cough minimal mucus secretions. Still need a sputum sample.. the container is on her table. I gave her an Aerobika this shift and educated her on the reason for it and how to use it. Patient brought Trelegy inhaler from home to use. Scheduled Tylenol and IBU remains for L side pain. Adequate relief rates mild pain @ 2/10 after administration. IV abx infused throughout the shift. Calls appropriately. MECHELLE SALAZAR BSN
[2023-07-15] MEDS: SIMVASTATIN 20 MG TABLET PO (20:39)
[2023-07-15] MEDS: AMLODIPINE 10 MG TABLET 5 MG PO (20:39)
[2023-07-15] MEDS: AMITRIPTYLINE 25 MG TABLET 50 MG PO (20:40)
[2023-07-15] MEDS: BUPRENORPHINE-NALOX 8-2MG FILM 1 EACH SUBLINGUAL (20:40)
--- NOTE | 2023-07-15 22:41 | P.IMPN_ITS ---
Progress Note: A&P Assessment and plan (1) Community acquired pneumonia: Problem details: - chest x-ray 07/12/2023: Findings/Impression: Cardiovascular and mediastinum: Cardiomegaly present. Normal pulmonary vasculature and mediastinum. Lungs and pleural spaces: Moderate to large left-sided pleural effusion with adjacent atelectasis and/or infiltrate. Remainder of the lungs and pleural spaces are clear. No pneumothorax. Bones and soft tissues: No significant findings. - elevated ddimer - CT scan of chest with PE protocol obtained 07/12/2023: IMPRESSION: 1. No CT evidence of pulmonary thromboembolic disease. 2. [id number] left pleural effusion with features of loculation. Consider aspiration and cytological analysis given unilateral pleural effusion if not previously performed. 3. No discrete consolidation. - blood cultures obtained after IV antibiotics were started emergency department negative. Strep pneumo/Legionella negative - on Zosyn and azithromycin for now - no further febrile episodes since admission to the hospital initiation of intervention as specified - WC continues to down trend - Mucinex bid, Aerobika - sputum culture ordered Status: Acute (2) Pleural effusion on left: Problem details: - parapneumonic effusion versus empyema versus other etiology - CT scan of chest shows [id number] left pleural effusion with features of loculation - General surgeon consulted to see whether not this patient is amenable to diagnostic needle thoracentesis with ultrasound guidance. She indicates the loculations are small enough such that the risks outweigh the potential benefits to perform this procedure here at this time. - Attempted transfer of patient to tertiary medical facility, without bed availability 07/14. Was able to make an outpatient appointment for patient to be seen in Pulmonary Medicine, [place], [place], at 8:00 a.m. on Tuesday07/19/2023. - continue current cares. Consider repeat CXR 1-2 days to reassess for improvement. Consider discussion with Interventional Radiology if no improvement. Status: Acute (3) Acute on chronic hypoxic respiratory failure: Problem details: - multifactorial including from underlying COPD and new community-acquired pneumonia, current smoker - requiring oxygen support. On high-flow oxygen as of 07/12/2023 - RT for pulmonary support - anticipate will qualify for home O2 after stabilization of conditions - BNP ordered. No previous ECHO found, ordered. Will give one time dose Lasix 40mg IV with noted trace peripheral edema. Status: Acute (4) Acute exacerbation of chronic obstructive pulmonary disease: Problem details: - patient acknowledges noncompliance with medication regimen and continued tobacco use (3/4 PPD) - on adequate regimen at this time including burst dose of steroids (acute hyperglycemia, continue to monitor), bronchodilators - encouraged patient to have someone bring in her Trelegy inhaler Status: Acute (5) Tobacco dependence: Problem details: - no interest in smoking cessation at this time Status: Acute (6) Opioid use disorder: Problem details: - continue with usual dosing of buprenorphine Status: Acute (7) Psoriasis: Problem details: - hold Cyclosporin while in hospital Status: Acute (8) Hypokalemia: Problem details: Replace and monitor. Status: Acute (9) Disorders of fluid, electrolyte, and acid-base balance: Problem details: Question of whether patient had some volume overload. Because her pleural effusion could not be tapped she was given furosemide. This is cause her potassium to be low. Think it is reasonable to continue a low dose of furosemide and monitor her response and her electrolytes. Status: Acute Plan Continue in-hospital with IV antibiotics, steroids, inhaled bronchodilators, oxygen supplementation. Hopefully she can be discharged for a pulmonary ap pointment on Tuesday. Time Spent With Patient Total time spent: Total time spent today is 60 minutes, 45 minutes in coordination of care discussing with patient other providers ongoing evaluation management. Subjective Date Seen: 07/16/23 Interval history: Michelle Trejo is a 62 year old woman presents with 2 weeks of progressive dyspnea, body aches, left-sided chest discomfort. She is a longstanding tobacco smoker and has no plans of quitting. Has known COPD. Acknowledges she is not adhering to medication regimen for her COPD. Believes she has had intermittent fevers. Denies rigors or diaphoresis. Has chronic cough. Denies hemoptysis. Acknowledges sputum production. Sputum sometimes yellow or green. Over the last couple days her dyspnea has worsened. With other symptoms persistent including the pain, she opted to come in for further evaluation to the emergency department this morning. Dyspnea worse with exertion. Denies paroxysmal nocturnal dyspnea or orthopnea. Denies dependent edema. Acknowledges decreased appetite. Denies nausea or vomiting. Denies dysphagia or odynophagia, dyspepsia, abdominal pain, diarrhea or constipation. Patient has a left pleural effusion which is somewhat loculated. This was felt to be not easily sampled with thoracentesis by our surgeon. No previous history of pleural effusion. Today she reports overall feeling better. She thinks her breathing is better though she still requiring high-flow oxygen with current settings of 30 L at 35%. She is not aware of any further fever. She thinks her cough is better. She otherwise reports doing well. Exam Narrative: Exam Narrative: She is alert and appears in no distress. She gives her own history. Respirations with decreased breath sounds in all lung zaragoza and nearly absent breath sounds at the left base. A rare crackle in her left mid lung zaragoza. No marked wheezing. Prolonged expiratory phase. Cardiovascular: S1, S2, regular rate and rhythm. Abdomen is soft without tenderness or mass. Extremities without edema. Const: Vital Signs, click to edit/add: Vital Signs - 24 hr 07/14/23 23:00 07/14/23 23:00 07/15/23 01:00 Temperature Pulse Rate [Right Pulse Oximeter] Respiratory Rate 24 Blood Pressure [Le ft Arm] Pulse Oximetry Oxygen Delivery Me thod Oxygen Flow Rate Fraction of Inspir ed Oxygen 45 45 07/15/23 03:00 07/15/23 03:00 07/15/23 05:00 Temperature Pulse Rate [Right Pulse Oximeter] 67 Respiratory Rate 18 Blood Pressure [Le ft Arm] Pulse Oximetry 87 L Oxygen Delivery Me thod High Flow Nasal Ca nnula Oxygen Flow Rate 25 Fraction of Inspir ed Oxygen 45 45 45 07/15/23 07:00 07/15/23 07:00 07/15/23 07:00 Temperature Pulse Rate [Right Pulse Oximeter] 89 Respiratory Rate 22 Blood Pressure [Le ft Arm] 150/87 H Pulse Oximetry 90 90 Oxygen Delivery Me thod High Flow Nasal Ca nnula Oxygen Flow Rate Fraction of Inspir ed Oxygen 45 07/15/23 07:00 07/15/23 09:00 07/15/23 11:00 Temperature 98.4 F Pulse Rate [Right Pulse Oximeter] 85 Respiratory Rate 22 Blood Pressure [Le ft Arm] 133/77 Pulse Oximetry 87 L Oxygen Delivery Me thod High Flow Nasal Ca nnula Oxygen Flow Rate 25 Fraction of Inspir ed Oxygen 45 45 07/15/23 11:00 07/15/23 15:00 07/15/23 15:00 Temperature 98.1 F Pulse Rate [Right Pulse Oximeter] 84 Respiratory Rate 20 Blood Pressure [Le ft Arm] 144/85 H Pulse Oximetry 88 Oxygen Delivery Me thod High Flow Nasal Ca nnula Oxygen Flow Rate 25 Fraction of Inspir ed Oxygen 45 35 07/15/23 17:34 Temperature Pulse Rate [Right Pulse Oximeter] Respiratory Rate Blood Pressure [Le ft Arm] Pulse Oximetry Oxygen Delivery Me thod Oxygen Flow Rate 30 Fraction of Inspir ed Oxygen 35 Labs Labs: Laboratory Results - last 24 hr 07/15/23 07/15/23 06:45 13:00 WBC 16.92 H RBC 3.83 L Hgb 11.3 L Hct 34.3 MCV 90 MCH 30 MCHC 33 RDW Coeff of Sher 13.2 Plt Count 290 Neut % (Auto) 88.0 H Lymph % (Auto) 4.9 L [place] % (Auto) 5.1 Eos % (Auto) 0.1 Baso % (Auto) 0.1 Neut # (Auto) 14.90 H Lymph # (Auto) 0.80 L [place] # (Auto) 0.90 Eos # (Auto) 0.00 Baso # (Auto) 0.00 Abs Immat Gran (auto) 0.30 Imm/Tot Granulo (auto) 1.8 VBG pH 7.398 VBG pCO2 49 VBG pO2 52.2 H VBG HCO3 30 H Sodium 141 Potassium 3.4 L Chloride 105 Carbon Dioxide 29 Anion Gap 7 BUN 18 Creatinine 0.7 Estimated Creat Clear 49.72 Estimated GFR 97 Glucose 225 H Calcium 8.0 L NT-Pro-B Natriuret Pep 1280 Lab Acknowledgement Test Added
[2023-07-16] VITALS (13 sets, daily range): BP systolic 139–150; BP diastolic 79–93; PULSE 61–91; RESP 14–22; TEMP 36.6–37.4; O2SAT 86–95
[2023-07-16] MEDS: PIPERACILLIN/TAZOBACTAM 3.375 GM in 0.9 % SODIUM CHLORIDE Mini-bag 100 ML IVPB ×4 (01:20→18:24)
--- NOTE | 2023-07-16 06:28 | PC.NURSE ---
End of Shift: Pt pleasant and cooperative, remained AO throughout shift. Denied any pain, well-controlled with medication. SOB upon exertion, utilizes oxymask with ambulation to restroom, notably SOB. Tolerating high flow O2 well with sats between 88-90% throughout shift. Refused 0230 nebulizer tx, reported feeling tired and wishing to not be woken up. PICC dressing changed, new dressing remains CDI. PICC flushing well, no pain reported, tolerating infusion well. Pt independent in room with oxymask with ambulation. No BM throughout shift, continent with voiding. Dry intermittent cough.
[2023-07-16] MEDS: OMEPRAZOLE 20 MG CAPSULE DR 40 MG PO (06:44)
[2023-07-16] MEDS: IBUPROFEN 400 MG TABLET PO ×3 (08:01→18:24)
[2023-07-16] MEDS: buPROPion XL 150 MG TABLET 300 MG PO (08:02)
[2023-07-16] MEDS: IPRAT-ALBUT 0.5-2.5 MG/3 ML NEB 1 NEB IH ×3 (08:02→21:00)
[2023-07-16] MEDS: METOPROLOL SUCCINATE (XL) 25 MG TAB PO (08:02)
[2023-07-16] MEDS: predniSONE 20 MG TABLET 40 MG PO (08:02)
[2023-07-16] MEDS: SODIUM CHLORIDE 0.9 % (FLUSH) 10 ML SYRINGE 5 ML IVF ×2 (08:03→21:01)
[2023-07-16] MEDS: Fluticasone-Umeclidin-Vilanter [Trelegy Ellipta] 100-62.5-25 mcg 1 EACH IH (08:03)
[2023-07-16] MEDS: BUPRENORPHINE-NALOX 8-2MG FILM 1.5 EACH SUBLINGUAL (08:03)
[2023-07-16 08:36] LABS: HCO3 VBG 35 mmol/L (21-28); PCO2 VBG 55 mmHG (40-50); PO2 VBG 57.8 mmHG (25-47); pH VBG 7.417 (7.32-7.43)
[2023-07-16 08:39] LABS: Basophils Percent Auto 0.1 % (0.0-3.0); Eosinophils Percent Auto 0.6 % (0.0-7.0); Hematocrit 36.9 % (33.0-51.0); Immature Granulocytes Pct Auto 2.6 %; Lymphocytes Percent Auto 10.8 % (20-44); Mean Corpuscular HGB Conc 33 gm/dL (32-36); Mean Corpuscular Hemoglobin 29 pg (26-34); Mean Corpuscular Volume 90 fL (80-100); Monocytes Percent Auto 5.1 % (0.0-11.0); Neutrophils Percent Auto 80.8 % (42.0-72.0); Platelet Count* 331 K/uL (140-440); RDW Coefficient of Variation % 13.5 % (11.5-15.5); Red Blood Count 4.09 m/uL (4.00-5.20); White Blood Count* 16.17 K/uL (4.50-11.00)
[2023-07-16 08:40] LABS: Slide Review Reflex No
[2023-07-16 08:56] LABS: Chloride* 102 mmol/L (96-114); Potassium* 3.1 mmol/L (3.6-5.1); Sodium* 141 mmol/L (135-149)
[2023-07-16 08:58] LABS: Creatinine* 0.6 mg/dL (0.5-1.5); Est. Creatinine Clearance* 49.72; Estimated Glomerular Filt Rate 101 ml/min
[2023-07-16 08:59] LABS: Anion Gap 5 mEq/L (7-15); Blood Urea Nitrogen* 14 mg/dL (7-30); Carbon Dioxide* 34 mmol/L (20-32); Glucose* 100 mg/dL (60-115)
--- NOTE | 2023-07-16 09:07 | RESP.RT ---
Patient on/off HFNC; FiO2 35%, Flow 30 Lpm, Temperature 36 degrees (C).Patient alternates with OxyMask for ambulation, and occasional wants a break. SaO2 89-92%. Patient noncompliant for Home CPAP. Did IS and PEP with Aerobika, patient did well with both, good effort, both promoted coarse wet cough, patient swallowed secretions.
[2023-07-16] MEDS: ACETAMINOPHEN 325 MG TABLET 650 MG PO ×4 (09:22→21:00)
[2023-07-16] MEDS: AZITHROMYCIN 500 MG in 0.9 % SODIUM CHLORIDE 250 ml 250 ML 255 MG IVPB (09:22)
[2023-07-16] MEDS: TORSEMIDE 20 MG TABLET PO (13:20)
[2023-07-16] MEDS: POTASSIUM BICARB 25 MEQ EFFERVESCENT TAB PO ×3 (13:21→18:25)
--- NOTE | 2023-07-16 19:23 | PC.NURSE ---
End of shift Patient remains up ad nir in her room ambulating with oxy mask on. High flow was titrated down to 25 L @28% this shift... per respiratory to keep above 85%. Tolerating it well. IV ABX throughout the day. Calls appropriately. Pain is well controlled in L side with scheduled Tylenol and IBU. R pick dressing reinforced. MECHELLE SALAZAR BSN.
[2023-07-16] MEDS: AMLODIPINE 10 MG TABLET 5 MG PO (21:00)
[2023-07-16] MEDS: SIMVASTATIN 20 MG TABLET PO (21:00)
[2023-07-16] MEDS: AMITRIPTYLINE 25 MG TABLET 50 MG PO (21:00)
[2023-07-16] MEDS: BUPRENORPHINE-NALOX 8-2MG FILM 1 EACH SUBLINGUAL (21:00)
[2023-07-17] VITALS (12 sets, daily range): BP systolic 140–152; BP diastolic 83–96; PULSE 67–90; RESP 18–20; TEMP 36.9–37.2; O2SAT 83–91
[2023-07-17] MEDS: PIPERACILLIN/TAZOBACTAM 3.375 GM in 0.9 % SODIUM CHLORIDE Mini-bag 100 ML IVPB ×4 (00:14→18:14)
[2023-07-17] MEDS: IPRAT-ALBUT 0.5-2.5 MG/3 ML NEB 1 NEB IH ×3 (02:26→15:23)
--- NOTE | 2023-07-17 06:01 | PC.NURSE ---
End of Shift: Pt AO throughout shift, pleasant and cooperative. Wore high flow O2 throughout night with O2 sats ranging between 83-91%. Pt independent in room to and from restroom, oxy mask utilized during bathroom breaks. Pt SOB upon exertion. Continent with bladder, no BM throughout shift. Pain well-controlled with scheduled medications. PICC remained patent.
[2023-07-17] MEDS: OMEPRAZOLE 20 MG CAPSULE DR 40 MG PO (06:31)
[2023-07-17] MEDS: METOPROLOL SUCCINATE (XL) 25 MG TAB PO (08:51)
[2023-07-17] MEDS: predniSONE 20 MG TABLET 40 MG PO (08:51)
[2023-07-17] MEDS: ACYCLOVIR 200 MG CAPSULE 400 MG PO ×3 (08:51→15:23)
[2023-07-17] MEDS: buPROPion XL 150 MG TABLET 300 MG PO (08:51)
[2023-07-17] MEDS: TORSEMIDE 20 MG TABLET PO (08:52)
[2023-07-17] MEDS: BUPRENORPHINE-NALOX 8-2MG FILM 1.5 EACH SUBLINGUAL (08:52)
[2023-07-17] MEDS: ACETAMINOPHEN 325 MG TABLET 650 MG PO ×3 (08:52→18:13)
[2023-07-17] MEDS: IBUPROFEN 400 MG TABLET PO ×3 (08:52→18:13)
[2023-07-17] MEDS: SODIUM CHLORIDE 0.9 % (FLUSH) 10 ML SYRINGE 5 ML IVF (08:53)
--- NOTE | 2023-07-17 08:56 | RESP.RT ---
Patient on/off HFNC; FiO2 28%, Flow 18 Lpm, Temperature 36 degrees (C).Patient alternates with OxyMask for ambulation, and occasional wants a break. SaO2 89-92%. When on OxyMask at 8 Lpm patient will be come SOB, needs few minutes on HFNC to reoxygenate. Will continue weaning HFNC as patient tolerates Patient is using Aerobika and IS to assist in lung recruitment and secretion mobilization. Patient noncompliant for Home CPAP.
[2023-07-17 09:29] LABS: HCO3 VBG 36 mmol/L (21-28); PCO2 VBG 50 mmHG (40-50); PO2 VBG 46.9 mmHG (25-47); pH VBG 7.462 (7.32-7.43)
[2023-07-17 09:37] LABS: Basophils Percent Auto 0.1 % (0.0-3.0); Eosinophils Percent Auto 1.1 % (0.0-7.0); Hemoglobin* 12.3 gm/dL (12.0-16.0); Immature Granulocytes Pct Auto 4.6 %; Lymphocytes Percent Auto 12.5 % (20-44); Mean Corpuscular HGB Conc 32 gm/dL (32-36); Mean Corpuscular Hemoglobin 30 pg (26-34); Mean Corpuscular Volume 91 fL (80-100); Monocytes Percent Auto 4.8 % (0.0-11.0); Neutrophils Percent Auto 76.9 % (42.0-72.0); Platelet Count* 372 K/uL (140-440); RDW Coefficient of Variation % 13.4 % (11.5-15.5); Red Blood Count 4.17 m/uL (4.00-5.20)
--- NOTE | 2023-07-17 09:48 | CRLHL7_ITS ---
For Patients: As a result of the Cures Act, medical imaging exams and procedure reports are released immediately into your electronic medical record. You may view this report before your referring provider. If you have questions, please contact your health care provider. INDICATION: Follow-up pleural effusion. COMPARISON: 07/12/2023. TECHNIQUE: Portable chest radiograph, frontal. FINDINGS: Right upper extremity PICC has been retracted slightly in the interim terminating in the proximal SVC. Loculated left pleural effusion, moderate in size appears similar. Slightly improved aeration left lung base although appears similar as well. IMPRESSION: Similar exam to previous. Dictated by Chris Shea MD @ 07/17/2023 10:38:43 AM (Electronically Signed)
[2023-07-17 09:50] LABS: Slide Review Reflex No
[2023-07-17 10:22] LABS: Chloride* 98 mmol/L (96-114); Potassium* 3.4 mmol/L (3.6-5.1); Sodium* 139 mmol/L (135-149)
[2023-07-17 10:25] LABS: Anion Gap 5 mEq/L (7-15); Blood Urea Nitrogen* 14 mg/dL (7-30); Calcium* 8.2 mg/dL (8.4-10.6); Carbon Dioxide* 36 mmol/L (20-32); Creatinine* 0.5 mg/dL (0.5-1.5); Est. Creatinine Clearance* 49.72; Estimated Glomerular Filt Rate 105 ml/min; Glucose* 125 mg/dL (60-115)
[2023-07-17] MEDS: Fluticasone-Umeclidin-Vilanter [Trelegy Ellipta] 100-62.5-25 mcg 1 EACH IH (11:16)
--- NOTE | 2023-07-17 11:32 | CRLHL7_ITS ---
For Patients: As a result of the Century Cures Act, medical imaging exams and procedure reports are released immediately into your electronic medical record. You may view this report before your referring provider. If you have questions, please contact your health care provider. INDICATION: Post thoracentesis COMPARISON: 07/17/2023 at 10:05 a.m. TECHNIQUE: 1 view chest radiograph. FINDINGS: Minimally decreased volume of the left pleural effusion that appears to be at least partially loculated along the inferolateral chest. Unchanged left basilar consolidation or opacification. Right arm PICC distal tip superior cavoatrial junction. No pneumothorax. IMPRESSION: No pneumothorax. Minimally decreased size of the left effusion. Dictated by Wen Rojas MD @ 07/17/2023 12:44:54 PM (Electronically Signed)
--- NOTE | 2023-07-17 11:36 | P.GSCN_ITS ---
History of Present Illness Consult details Date Seen: 07/17/23 Consult date: 07/17/23 Narrative: Patient is a 62-year-old female, currently being hospitalized for community- acquired pneumonia. During workup she had evidence of a moderate size pleural effusion on the left. CT scan demonstrated loculations and concern was for empyema versus malignancy. Patient is a everyday smoker, but 3/4 pack per day. She does have a history of COPD. She has never had a procedure like this before. Since being in the hospital she has been taking a course of IV antibiotics and reports overall feeling better. She thinks that her fatigue has improved and her shortness of breath is improving, however she maintains the need for high-flow oxygen. She is not on any blood thinners. I did evaluate the patient earlier this week, with no safe window for diagnostic thoracentesis at this time. A repeat chest x-ray was obtained and stable. Repeat ultrasound was performed with a small window now identified to pull off some fluid for evaluation. Risks and benefits of the procedure were discussed at length with the patient with her going to proceed. Review of Systems Status of ROS: Reports: 6 or more systems reviewed and unremarkable except as noted in History and below [facility] Medical History (Updated 07/16/23 @ 17:24 by Zak Rush MD) Disorders of fluid, electrolyte, and acid-base balance ?E87.8 - Other disorders of electrolyte and fluid balance, not elsewhere classified (ICD-10) Skin fissures ?R23.4 - Changes in skin texture (ICD-10) Tobacco dependence ?F17.200 - Nicotine dependence, unspecified, uncomplicated (ICD-10) Genital herpes ?A60.00 - Herpesviral infection of urogenital system, unspecified (ICD-10) Opioid use disorder ?F11.90 - Opioid use, unspecified, uncomplicated (ICD-10) Uterine fibroid ?D25.9 - Leiomyoma of uterus, unspecified (ICD-10) Simple obesity (12/14/12) ?E66.9 - Obesity, unspecified (ICD-10) PTSD (post-traumatic stress disorder) (12/14/12) ?F43.10 - Post-traumatic stress disorder, unspecified (ICD-10) Opioid dependence ?F11.20 - Opioid dependence, uncomplicated (ICD-10) Obstructive sleep apnea syndrome ?G47.33 - Obstructive sleep apnea (adult) (pediatric) (ICD-10) Low back pain ?M54.50 - Low back pain, unspecified (ICD-10) Insomnia (12/14/12) ?G47.00 - Insomnia, unspecified (ICD-10) Hypertension ?I10 - Essential (primary) hypertension (ICD-10) Hyperlipidemia ?E78.5 - Hyperlipidemia, unspecified (ICD-10) Hiatal hernia ?K44.9 - Diaphragmatic hernia without obstruction or gangrene (ICD-10) Hammer toe ?M20.40 - Other hammer toe(s) (acquired), unspecified foot (ICD-10) Gastroesophageal reflux disease (12/14/12) ?K21.9 - Gastro-esophageal reflux disease without esophagitis (ICD-10) Encounter for screening laboratory testing for severe acute respiratory syndrome coronavirus 2 (SARS-CoV-2) ?Z20.822 - Contact with and (suspected) exposure to COVID-19 (ICD-10) Encounter for pre-operative examination ?Z01.818 - Encounter for other preprocedural examination (ICD-10) Dysthymic disorder (12/14/12) ?F34.1 - Dysthymic disorder (ICD-10) Chronic obstructive pulmonary disease ?J44.9 - Chronic obstructive pulmonary disease, unspecified (ICD-10) Chronic low back pain ?M54.50 - Low back pain, unspecified (ICD-10) ?G89.29 - Other chronic pain (ICD-10) Chronic hepatitis C virus infection (12/14/12) ?B18.2 - Chronic viral hepatitis C (ICD-10) Central sleep apnea ?G47.31 - Primary central sleep apnea (ICD-10) Carpal tunnel syndrome ?G56.00 - Carpal tunnel syndrome, unspecified upper limb (ICD-10) Anxiety (12/14/12) ?F41.9 - Anxiety disorder, unspecified (ICD-10) Acute postoperative respiratory insufficiency ?J95.89 - Other postprocedural complications and disorders of respiratory system, not elsewhere classified (ICD-10) Abscess or cellulitis of thigh Abscess ?L02.91 - Cutaneous abscess, unspecified (ICD-10) Encounter for technician terminal and repeater current cyclosporin A therapy ?Z79.621 - manager long term care (current) use of calcineurin inhibitor (ICD-10) Infection ?B99.9 - Unspecified infectious disease (ICD-10) On methotrexate therapy ?Z79.631 - manager long term care (current) use of antimetabolite agent (ICD-10) Psoriasis ?L40.9 - Psoriasis, unspecified (ICD-10) Psoriasis ?L40.9 - Psoriasis, unspecified (ICD-10) History of anemia ?Z86.2 - Personal history of diseases of the blood and blood-forming organs and certain disorders involving the immune mechanism (ICD-10) History of traumatic injury of head ?Z87.828 - Personal history of other (healed) physical injury and trauma (ICD-10) Surgical History History of tonsillectomy ?Z90.89 - Acquired absence of other organs (ICD-10) Status post laparoscopic Jerilyn fundoplication ?Z98.890 - Other specified postprocedural states (ICD-10) History of bunionectomy ?Z98.890 - Other specified postprocedural states (ICD-10) Social History What is your current living situation?: I presently have a place to live Problems where you live: no known problems Problems where you live details: none In the past 12 months, utilities in danger of being shut off: no In past 12 months, lack of transportation kept you from medical appts, meetings, work, or getting things needed for daily living: no In the past 12 mos, have been you worried that your food would run out before you had money to buy more?: never true In the past 12 mos, the food you bought just didn't last and you didn't have money to buy more?: never true Are you following a diet prescribed by a doctor: No Are you following a special diet: No Highest level of school completed/degree received: high school graduate Smoking Status: Current every day smoker What tobacco products do you use: cigarettes Smoking packs per day: 1 Smoking cigarettes per day: 20.0 Do you use any of these nicotine containing products: None Second hand tobacco smoke exposure: No How often do you have a drink containing alcohol: never AUDIT-C Alcohol total score: 0 Non-prescribed substance use: former substance user Non-prescribed substance use details: clean from heroin since 2006 Caffeine: Yes How often does anyone, including family, friends and others, physically hurt you : never How often does anyone, including family, friends and others, insult or talk down to you: never How often does anyone, including family, friends and others, threaten you with harm: never How often does anyone, including family, friends and others, scream or curse at you: never Little interest or pleasure in doing things: not at all Feeling down, depressed, or hopeless: several days service: No Meds Home Medications and Allergies Home Medications Medication Instructions Recorded Confirmed Type albuterol sulfate 90 mcg/actuation 1 puff inhalation Q4H PRN 06/14/22 07/12/23 History aerosol inhaler biotin 1 tab PO DAILY 09/09/22 07/12/23 History omega-3 fatty acids 500 mg PO QDAY 09/09/22 07/12/23 History Lactobacillus acidophilus 10 mg PO DAILY 07/12/23 07/12/23 History (Acidophilus capsule) acyclovir 400 mg tablet 400 mg PO TID PRN genital herpes 07/12/23 07/12/23 History amitriptyline 50 mg tablet 50 mg PO HS 07/12/23 07/12/23 History amlodipine 10 mg tablet 10 mg PO HS 07/12/23 07/12/23 History cholecalciferol (vitamin D3) 25 25 mcg PO DAILY 07/12/23 07/12/23 History mcg (1,000 unit) tablet (Vitamin D3) ferrous sulfate 325 mg (65 mg 325 mg PO DAILY 07/12/23 07/12/23 History iron) tablet fluticasone fur. 100 mcg-umeclid 1 inh inhalation DAILY 07/12/23 07/12/23 History 62.5 mcg-vilant 25 mcg inhalat.powder (Trelegy Ellipta) omeprazole 40 mg capsule,delayed 40 mg PO DAILY 07/12/23 07/12/23 History release simvastatin 20 mg tablet 20 mg PO HS 07/12/23 07/12/23 History Allergies Allergy/AdvReac Type Severity Reaction Status Date / Time Sulfa (Sulfonamide Allergy Mild Rash Verified 07/12/23 20:32 Antibiotics) Exam Narrative: Exam Narrative: General: Alert and oriented, no acute distress Respiratory: High-flow nasal cannula, some shortness of breath with talking and moving around the room. Decreased breath sounds left side. Const: Vital Signs, click to edit/add: Vital Signs - 24 hr 07/16/23 14:45 07/16/23 15:00 07/16/23 15:55 Temperature 98.9 F Pulse Rate [Right Pulse Oximeter] 78 Respiratory Rate 18 Blood Pressure [Le ft Arm] 144/79 H Pulse Oximetry 89 Oxygen Delivery Me thod High Flow Nasal Ca nnula Oxygen Flow Rate 20 20 Fraction of Inspir ed Oxygen 28 28 28 07/16/23 18:00 07/16/23 19:00 07/16/23 20:00 Temperature 98.7 F Pulse Rate [Right Pulse Oximeter] 64 Respiratory Rate 18 Blood Pressure [Le ft Arm] 139/80 Pulse Oximetry 86 L Oxygen Delivery Me thod High Flow Nasal Ca nnula Oxygen Flow Rate 20 Fraction of Inspir ed Oxygen 28 28 28 07/16/23 22:00 07/16/23 23:00 07/16/23 23:00 Temperature 98.5 F Pulse Rate [Right Pulse Oximeter] 61 61 Respiratory Rate 18 18 Blood Pressure [Le ft Arm] Pulse Oximetry 86 L Oxygen Delivery Me thod High Flow Nasal Ca nnula Oxygen Flow Rate 20 Fraction of Inspir ed Oxygen 28 28 07/17/23 00:00 07/17/23 02:00 07/17/23 03:00 Temperature 98.5 F Pulse Rate [Right Pulse Oximeter] 67 Respiratory Rate 18 Blood Pressure [Le ft Arm] 140/83 H Pulse Oximetry 86 L Oxygen Delivery Me thod High Flow Nasal Ca nnula Oxygen Flow Rate 20 Fraction of Inspir ed Oxygen 28 28 28 07/17/23 04:00 07/17/23 06:00 07/17/23 07:00 Temperature Pulse Rate [Right Pulse Oximeter] Respiratory Rate Blood Pressure [Le ft Arm] Pulse Oximetry 88 Oxygen Delivery Me thod Oxygen Flow Rate Fraction of Inspir ed Oxygen 28 28 07/17/23 08:00 07/17/23 08:00 07/17/23 08:00 Temperature Pulse Rate [Right Pulse Oximeter] Respiratory Rate 20 Blood Pressure [Le ft Arm] Pulse Oximetry 87 L Oxygen Delivery Me thod High Flow Nasal Ca nnula Oxygen Flow Rate 18 18 Fraction of Inspir ed Oxygen 28 28 28 07/17/23 08:13 07/17/23 10:00 07/17/23 11:00 Temperature 99.0 F Pulse Rate [Right Pulse Oximeter] 80 90 Respiratory Rate 18 20 Blood Pressure [Le ft Arm] 152/96 H 143/85 H Pulse Oximetry 89 83 L Oxygen Delivery Me thod High Flow Nasal Ca nnula High Flow Nasal Ca nnula Oxygen Flow Rate 15 Fraction of Inspir ed Oxygen 25 Results Labs Labs: Abnormal lab results 07/17/23 Range/Units 08:43 WBC 15.80 H (4.50-11.00) K/uL Neut % (Auto) 76.9 H (42.0-72.0) % Lymph % (Auto) 12.5 L (20-44) % Neut # (Auto) 12.20 H (1.7-7.0) K/uL Abs Immat Gran (auto) 0.70 H (0.00-0.30) K/uL VBG pH 7.462 H (7.32-7.43) VBG HCO3 36 H (21-28) mmol/L Potassium 3.4 L (3.6-5.1) mmol/L Carbon Dioxide 36 H (20-32) mmol/L Anion Gap 5 L (7-15) mEq/L Glucose 125 H (60-115) mg/dL Calcium 8.2 L (8.4-10.6) mg/dL Diabetes panel 07/17/23 Range/Units 08:43 Sodium 139 (135-149) mmol/L Potassium 3.4 L (3.6-5.1) mmol/L Chloride 98 (96-114) mmol/L Carbon Dioxide 36 H (20-32) mmol/L BUN 14 (7-30) mg/dL Creatinine 0.5 (0.5-1.5) mg/dL Glucose 125 H (60-115) mg/dL Calcium 8.2 L (8.4-10.6) mg/dL Calcium panel 07/17/23 Range/Units 08:43 Calcium 8.2 L (8.4-10.6) mg/dL Pituitary panel 07/17/23 Range/Units 08:43 Sodium 139 (135-149) mmol/L Potassium 3.4 L (3.6-5.1) mmol/L Chloride 98 (96-114) mmol/L Carbon Dioxide 36 H (20-32) mmol/L BUN 14 (7-30) mg/dL Creatinine 0.5 (0.5-1.5) mg/dL Glucose 125 H (60-115) mg/dL Calcium 8.2 L (8.4-10.6) mg/dL Adrenal panel 07/17/23 Range/Units 08:43 Sodium 139 (135-149) mmol/L Potassium 3.4 L (3.6-5.1) mmol/L Chloride 98 (96-114) mmol/L Carbon Dioxide 36 H (20-32) mmol/L BUN 14 (7-30) mg/dL Creatinine 0.5 (0.5-1.5) mg/dL Glucose 125 H (60-115) mg/dL Calcium 8.2 L (8.4-10.6) mg/dL All other labs normal. Imaging Chest x-ray: report reviewed and image reviewed Assessment and Plan Assessment and plan (1) Pleural effusion on left: Problem comment: - parapneumonic effusion versus empyema versus other etiology - CT scan of chest shows [id number] left pleural effusion with features of loculation - General surgeon consulted to see whether not this patient is amenable to diagnostic needle thoracentesis with ultrasound guidance. She indicates the loculations are small enough such that the risks outweigh the potential benefits to perform this procedure here at this time. - Attempted transfer of patient to tertiary medical facility, without bed availability 07/14. Was able to make an outpatient appointment for patient to be seen in Pulmonary Medicine, [place], [place], at 8:00 a.m. on Tuesday07/19/2023. - continue current cares. Consider repeat CXR 1-2 days to reassess for improvement. Consider discussion with Interventional Radiology if no improvement. Status: Acute Plan Patient is a 62-year-old female with new left-sided pleural effusion. On ultrasound imaging CT scan this is very organized in appearance with multiple loculations. Previous attempt at diagnostic thoracentesis was deemed not safe due to no clear window. Repeat imaging was performed today with a window identified that would make the procedure safe for diagnosis purposes. Risks and benefits of procedure were discussed at length with the patient with her agreeing to proceed. Procedure was tolerated well without immediate complication. Postprocedure chest x-ray demonstrated no evidence of pneumothorax (radiology read pending), persistent pleural effusion. I was able to pull off 150 mL of murky serous fluid concerning for empyema. Very thick in consistency. Would recommend further evaluation by thoracic surgery for consideration of VATs procedure vs chest tube +tpa. General Surgery Procedures Thoracentesis Time Out Performed: Yes Imaging guidance used ?: Yes Indication: Pleural effusion Procedure: diagnostic thoracentesis Location: left Local anesthetic used: lidocaine Amount of anesthesia used (mL): 5 Bedside ultrasound used: yes, fluid confirmed and location marked Preparation: sterile prep and drape and 11 blade used to make rhonda in skin Amount of fluid obtained (mL): 150 Fluid: cloudy and sent to lab for analysis Post Procedure Exam: awake, alert, normal BP, normal HR and other (maintained on hi flow O2 throughout procedure. This was increased during procedure. ) Patient Tolerated Procedure: well and no complications Complications: none
[2023-07-17 12:47] LABS: Albumin Body Fluid* 1.8 gm/dL; Amylase Body Fluid* < 30 U/L; BF Clarity* Cloudy; BF Color Xanthochromic; BF Total Volume* 21; Body Fluid Total Protein* 3.9 gm/dL; Cholesterol Body Fluid* < 50 mg/dL; Glucose Body Fluid* 57 mg/dL; pH Body Fluid* 7.5
[2023-07-17 12:48] LABS: Mononuclear WBC Body Fluid* 20 %; Polynuclear WBC Body Fluid* 80 %; RBC, Body Fluid* 23000 Cells/uL
[2023-07-17 13:13] LABS: LDH Body Fluid* 7775 U/L
[2023-07-17 13:23] LABS: Bilirubin Total* 0.4 mg/dL (0.1-1.5)
--- NOTE | 2023-07-17 13:29 | PM.DS1 ---
DS: Providers Provider Date Seen: 07/17/23 Date of admission: 07/12/23 05:48 Primary care physician: Arnulfo Alvarenga MD Admitting Clinician: Zak Rush MD Attending Physician on discharge: Zak Rush MD Date of Discharge: 07/17/23 DS: Diagnosis Discharge Diagnosis (1) Empyema: Status: Acute Problem details: Had purulent appearing fluid from thoracentesis today. On admission surgeries reluctant to do a thoracentesis because the fluid appeared loculated. (2) Acute hypoxic respiratory failure: Status: Acute Problem details: - multifactorial including from underlying COPD and new community-acquired pneumonia and empyema. On high-flow oxygen. Initially 30 L at 35%. Today down to 15-20 L at 25%. (3) Acute exacerbation of chronic obstructive pulmonary disease: Status: Acute Problem details: Acutely treated with prednisone and inhaled bronchodilators. (4) Opioid use disorder: Status: Acute Problem details: Continuing on chronic buprenorphine. No issues with pain. (5) Community acquired pneumonia: Status: Acute Problem details: - chest x-ray 07/12/2023: Findings/Impression: Cardiovascular and mediastinum: Cardiomegaly present. Normal pulmonary vasculature and mediastinum. Lungs and pleural spaces: Moderate to large left-sided pleural effusion with adjacent atelectasis and/or infiltrate. Remainder of the lungs and pleural spaces are clear. No pneumothorax. Bones and soft tissues: No significant findings. - elevated ddimer - CT scan of chest with PE protocol obtained 07/12/2023: IMPRESSION: 1. No CT evidence of pulmonary thromboembolic disease. 2. [id number] left pleural effusion with features of loculation. Consider aspiration and cytological analysis given unilateral pleural effusion if not previously performed. 3. No discrete consolidation. - blood cultures obtained after IV antibiotics were started emergency department negative. Strep pneumo/Legionella negative - on Zosyn and azithromycin initially. Zithromax discontinued. Zosyn continues. - no further febrile episodes since admission to the hospital initiation of intervention as specified - WC continues to down trend from 29 K on admission to 15.8 K on discharge DS: Summary Hospital Course Hospital Course: 62-year-old female admitted to the hospital with a 2 week history of acute respiratory illness with cough and dyspnea. Had fever on admission. Initial evaluation including CT of the chest which showed a loculated left pleural effusion and pneumonia or atelectasis adjacent to this. No thoracentesis done initially due to concerns about loculated appearance of the pleural fluid. Blood cultures obtained after antibiotics, Zosyn and azithromycin started in the emergency department. No growth after 5 days. She required high-flow oxygen from admission. Initially 30 liters/minute at 35% FiO2. Today was able to wean down to 15 liters/minute at 25% FiO2. She continues to feel better each day. Fever has resolved. White count is improving. Due to the finding of purulent fluid on thoracentesis today it was felt she would benefit from consultation with a thoracic surgeon to manage in empyema. On that basis she will be transferred to [facility] in [place] where she has accepted for admission and ongoing evaluation and treatment. Dr. [facility] Status at Discharge Functional status at discharge: independent ambulation Overall status at discharge: patient is progressing back to baseline Time Spent with Patient Time attestation: Total time spent providing and/or coordinating discharge services: Time spent: Greater than 30 minutes Exam Narrative: Exam Narrative: She is alert and appears in no distress. She is oriented to her circumstances. She appears comfortable. Respirations with decreased breath sounds but no marked wheezing. Breath sounds at her left lung base are nearly absent. Cardiovascular: S1, S2, regular rate and rhythm. Abdomen: Bowel sounds active. Abdomen is soft without tenderness or mass. Extremities without edema. Const: Vital Signs, click to edit/add: Vital Signs - 24 hr 07/16/23 14:45 07/16/23 15:00 07/16/23 15:55 Temperature 98.9 F Pulse Rate [Right Pulse Oximeter] 78 Respiratory Rate 18 Blood Pressure [Le ft Arm] 144/79 H Pulse Oximetry 89 Oxygen Delivery Me thod High Flow Nasal Ca nnula Oxygen Flow Rate 20 20 Fraction of Inspir ed Oxygen 07/16/23 18:00 07/16/23 19:00 07/16/23 20:00 Temperature 98.7 F Pulse Rate [Right Pulse Oximeter] 64 Respiratory Rate 18 Blood Pressure [Le ft Arm] 139/80 Pulse Oximetry 86 L Oxygen Delivery Me thod High Flow Nasal Ca nnula Oxygen Flow Rate 20 Fraction of Inspir ed Oxygen 28 07/16/23 22:00 07/16/23 23:00 07/16/23 23:00 Temperature 98.5 F Pulse Rate [Right Pulse Oximeter] 61 61 Respiratory Rate 18 18 Blood Pressure [Le ft Arm] Pulse Oximetry 86 L Oxygen Delivery Me thod High Flow Nasal Ca nnula Oxygen Flow Rate 20 Fraction of Inspir ed Oxygen 28 28 07/17/23 00:00 07/17/23 02:00 07/17/23 03:00 Temperature 98.5 F Pulse Rate [Right Pulse Oximeter] 67 Respiratory Rate 18 Blood Pressure [Le ft Arm] 140/83 H Pulse Oximetry 86 L Oxygen Delivery Me thod High Flow Nasal Ca nnula Oxygen Flow Rate 20 Fraction of Inspir ed Oxygen 28 28 28 07/17/23 04:00 07/17/23 06:00 07/17/23 07:00 Temperature Pulse Rate [Right Pulse Oximeter] Respiratory Rate Blood Pressure [Le ft Arm] Pulse Oximetry 88 Oxygen Delivery Me thod Oxygen Flow Rate Fraction of Inspir ed Oxygen 28 28 07/17/23 08:00 07/17/23 08:00 07/17/23 08:00 Temperature Pulse Rate [Right Pulse Oximeter] Respiratory Rate 20 Blood Pressure [Le ft Arm] Pulse Oximetry 87 L Oxygen Delivery Me thod High Flow Nasal Ca nnula Oxygen Flow Rate 18 18 Fraction of Inspir ed Oxygen 28 28 28 07/17/23 08:13 07/17/23 10:00 07/17/23 11:00 Temperature 99.0 F Pulse Rate [Right Pulse Oximeter] 80 90 Respiratory Rate 18 20 Blood Pressure [Le ft Arm] 152/96 H 143/85 H Pulse Oximetry 89 83 L Oxygen Delivery Me thod High Flow Nasal Ca nnula High Flow Nasal Ca nnula Oxygen Flow Rate 15 Fraction of Inspir ed Oxygen 25 07/17/23 12:00 Temperature Pulse Rate [Right Pulse Oximeter] Respiratory Rate Blood Pressure [Le ft Arm] Pulse Oximetry Oxygen Delivery Me thod Oxygen Flow Rate Fraction of Inspir ed Oxygen 25 Documenting provider has reviewed patient's vital signs: yes DS: Data Data Completed and Pending Labs on day of discharge: Labs from last 24 hours 07/17/23 07/17/23 11:53 08:43 WBC 15.80 H RBC 4.17 Hgb 12.3 Hct 38.0 MCV 91 MCH 30 MCHC 32 RDW Coeff of Sher 13.4 Plt Count 372 Neut % (Auto) 76.9 H Lymph % (Auto) 12.5 L [place] % (Auto) 4.8 Eos % (Auto) 1.1 Baso % (Auto) 0.1 Neut # (Auto) 12.20 H Lymph # (Auto) 2.00 [place] # (Auto) 0.80 Eos # (Auto) 0.20 Baso # (Auto) 0.00 Abs Immat Gran (auto) 0.70 H Imm/Tot Granulo (auto) 4.6 VBG pH 7.462 H VBG pCO2 50 VBG pO2 46.9 VBG HCO3 36 H Sodium 139 Potassium 3.4 L Chloride 98 Carbon Dioxide 36 H Anion Gap 5 L BUN 14 Creatinine 0.5 Estimated Creat Clear 49.72 Estimated GFR 105 Glucose 125 H Calcium 8.2 L Total Bilirubin Pending Fluid Volume 21 Fluid Color Xanthochromic A Fluid Appearance Cloudy A Fluid pH 7.5 Fluid WBC 91340 Fluid RBC 01224 Fluid Polynuclear WBCs 80 Fluid Mononuclear WBCs 20 Fluid Glucose 57 Fluid Total Protein 3.9 Fluid Albumin 1.8 Fluid LDH 7775 Fluid Amylase < 30 Fluid Cholesterol < 50 Preliminary micro results at discharge 07/17/23 11:53 Anaerobic Culture - Preliminary Pleural Fluid Culture in Progress Body Fluid Culture - Preliminary Culture in Progress Imaging CT scan - chest: Radiologist's impression: NDICATION: .HYPOXIA, DYSPNEA TECHNIQUE: CT chest PE was acquired with 95 cc Isovue 370 IV contrast. COMPARISON: None FINDINGS: Pulmonary Arteries: No CT evidence of pulmonary thromboembolic disease. No pulmonary hypertension or right ventricular strain. Heart and Mediastinum: The visualized portions of the thyroid are normal. No axillary or supraclavicular lymphadenopathy. Prominent nonenlarged mediastinal lymph nodes. Borderline cardiomegaly. Normal caliber aorta. Atherosclerotic calcifications. Lungs and Airways: Passive left basilar atelectasis. Right basilar linear opacities likely subsegmental atelectasis. No endoluminal lesion. Pleura: Ialzipuk-[id number]-[id number] left pleural effusion with features of loculation. Additional areas of fissural fluid Abdomen: Small hernia. Bones and soft tissues: Thoracic spondylosis. IMPRESSION: 1. No CT evidence of pulmonary thromboembolic disease. 2. Sahfqhvk-pu-sfavq left pleural effusion with features of loculation. Consider aspiration and cytological analysis given unilateral pleural effusion if not previously performed. 3. No discrete consolidation. Discharge Plan Discharge Disposition: [facility] Date of Admission: 07/12/23 05:48 Attending Provider on Discharge: Zak Rush Primary Care Provider: Arnulfo Alvarenga Condition: Stable Discharge Orders: Transfer of Care to Other Hospital (ORDER); Ordered 07/17/23 Ordered By: Zak Rush Oxygen: Yes
--- NOTE | 2023-07-17 13:50 | RESP.RT ---
13:00 Removed from HNC placed on NC 4 Lpm, SaO2 89-92%.
--- NOTE | 2023-07-17 17:37 | PC.NURSE ---
End of Shift... pending transfer to [place]... Patient remains independent in the room. Titrated her down to 4L on NC. Tolerating well... to maintain stats >85% per respiratory. Pending transfer to [place]... Thoracentesis was completed by Dr Barclay in the patients room. 120cc of yel low cloudy fluid from the pleural space, the patient tolerated it well with no issued. The patients R PICC remains in place. this evening I changed the dressing and labeled it with my initials and the date I changed. The patient showered today as well. Intermittent dry cough... report was given to excelsior machine tender Jo about mid day per her 4 hr wait until they can accept her on the unit. Call light within reach. Calls appropriately. No reports of pain this shift. MECHELLE SALAZAR BSN
[2023-07-17] MEDS: POTASSIUM CHLORIDE 10 MEQ CAPSULE ER 20 MEQ PO (18:13)
--- NOTE | 2023-07-17 19:04 | PC.NURSE ---
EMS arrived to flower buncher or picker the patient @ 1830 to via stretcher... R PICC remains in place the dressing was changed. All belongings were sent with her. Sent on 4L [place]. Transferring to [place] Report was already given. MECHELLE SALAZAR BSN
== END 2023-07-17 18:30 | disposition short-term general hospital (02) | DRG 177 ==
LOC: ED 06:01 → MEDSURG 11:10
PROVIDERS: Internal Medicine; Physician Assistant; Surgery; Admitting Provider Family Medicine; Emergency Provider Family Medicine; PCP Family Medicine; Visit Provider Family Medicine
DX: J86.9 Pyothorax without fistula (principal); J18.9 Pneumonia, unspecified organism; J96.21 Acute and chronic respiratory failure with hypoxia; J44.0 Chronic obstructive pulmonary disease with (acute) lower respiratory infection; J91.8 Pleural effusion in other conditions classified elsewhere; J98.11 Atelectasis; D84.821 Immunodeficiency due to drugs; J44.1 Chronic obstructive pulmonary disease with (acute) exacerbation; E87.8 Other disorders of electrolyte and fluid balance, not elsewhere classified; F11.90 Opioid use, unspecified, uncomplicated; Z79.621 Long term (current) use of calcineurin inhibitor; Z79.631 Long term (current) use of antimetabolite agent; G47.33 Obstructive sleep apnea (adult) (pediatric); E87.6 Hypokalemia; L40.9 Psoriasis, unspecified; R00.0 Tachycardia, unspecified; T45.1X5A Adverse effect of antineoplastic and immunosuppressive drugs, initial encounter; F17.210 Nicotine dependence, cigarettes, uncomplicated; F43.10 Post-traumatic stress disorder, unspecified; F34.1 Dysthymic disorder; F41.9 Anxiety disorder, unspecified; I10 Essential (primary) hypertension; E78.5 Hyperlipidemia, unspecified
CPT/HCPCS: 36415; 36573; 71045; 71046; 71275; 76604; 80048; 80053; 81003; 81015; 82040; 82042; 82150; 82247; 82465; 82803; 82945; 83605; 83615; 83735; 83880; 83986; 84100; 84145; 84155; 84157; 84311; 84484; 85025; 85379; 85610; 86140; 87015; 87040; 87070; 87075; 87102; 87116; 87186; 87205; 87449; 87631; 87899; 88112; 88305; 89051; 93005; 93306; 94640; 94664; 94761; 99284; 99285; A9270; C1751; J0456; J0574; J1940; J2543; J2930; J7030; J7050; J7512; Q9967

== ENCOUNTER 2023-07-17 18:20 | Outpatient (CLI) | payer MEDICARE, MEDICAID, SELFPAY | END 2023-07-17 18:21 | disposition home or self-care (01) | LOC: AMB 07-18 09:12 | PROVIDERS: PCP Family Medicine; Visit Provider Emergency Medicine | DX: R06.03 Acute respiratory distress (principal) | CPT/HCPCS: A0425; A0427 ==

== ENCOUNTER 2023-08-29 11:12 | Outpatient (CLI) | payer MEDICARE, MEDICAID, SELFPAY ==
--- OUTSIDE RECORDS SUMMARY | 2023-09-01 10:40 | XMS_ITS | Encounter Summary ---
Author Name Unknown Organization [place] Address [address] [facility] [place] [address] Care Team Providers Care Composition Roofer Name Role Phone Arnulfo Alvarenga MD Primary Care Provider [phone] Reason for Visit * Diagnostic Imaging XR (Routine) - Pending Review Specialty Diagnoses / Procedures Referred By Everardo booker Referred To Contact Radiology. Diagnoses Sequela of bacterial infection Procedures XR Chest 2 Views Frederick Wu MD [facility] [address] [place] [address] [employer] [address] [place] [address] Referral ID Status Reason Start Date Expiration Date V isits Requested Visits Authorized [id number] Pending Review 07/25/2023 07/24/2024 1 1 Encounter Details Date Type Department Care Team (Latest Contact Info) Description 08/03/2023 1:30 PM BOOK CUTTER Ancillary Procedure [address] [id number] Frederick uW MD [facility] [address] [place], [place] [id number] [address] [place], [place] [address] Sequela of bacterial infection Social History Tobacco Use Types Packs/Day Years Used Date Smoking Tobacco: Never Assessed Adolescent Education Answer Date Record ed Getting School Help Needed Not on file 07/25 Sex and Gender Information Value Date Recorded Sex Assigned at Not on file Gender Identity Not on file Sexual Orientation Not on file documented as of this encounter Last Filed Vital Signs Vital Sign Reading Time Taken Comments Blood Pressure - - Pulse - - Temperature - - Respiratory Rate - - Oxygen Saturation - - Inhaled Oxygen Concentration - - Weight 85.5 kg (188 lb 6.4 oz) 08/03/2023 1:25 P M BOOK CUTTER Height 157 cm (5' 1.81) 08/03/2023 1:25 PM BOOK CUTTER Body Mass Index 34.67 08/03/2023 1:25 PM BOOK CUTTER documented in this encounter Progress Notes * Jaylin Avila RT - 08/03/2023 1:30 PM CST Results faxed to Dr Wu/[facility] RT Harjit (R) CUTTER documented in this encounter Plan of Treatment Not on file documented as of this encounter Procedures Procedure Name Priority Date/Time Associated Diagnosis Comments XR CHEST 2 VIEWS Routine 08/03/2023 1:24 PM BOOK CUTTER Sequela of bacterial infection documented in this encounter Results * XR Chest 2 Views (08/03/2023 1:24 PM BOOK CUTTER) Anatomical Region Laterality Modality Chest Computed Radiogr aphy Impressions 08/03/2023 1:56 PM BOOK CUTTER IMPRESSION: Small left pleural effusion with adjacent opacity that could reflect atelectasis or infection. No pneumothorax. Right lung is relatively clear. Cardiomediastinal silhouette is unremarkable. Moderate stool within the visualized transverse colon. LUKASZ DE LA GARZA MD Narrative 08/03/2023 1:56 PM BOOK CUTTER CHEST TWO VIEWS August 03, 2023 1:24 PM HISTORY: Postoperative followup. Sequela of bacterial infection. COMPARISON: None available. Procedure Note Lukasz De La Garza MD - 08/03/2023 CHEST TWO VIEWS August 03, 2023 1:24 PM HISTORY: Postoperative followup. Sequela of bacterial infection. COMPARISON: None available. IMPRESSION: Small left pleural effusion with adjacent opacity that could reflect atelectasis or infection. No pneumothorax. Right lung is relatively clear. Cardiomediastinal silhouette is unremarkable. Moderate stool within the visualized transverse colon. LUKASZ DE LA GARZA MD Frederick Wu MD [facility] ORDERABLES documented in this encounter Visit Diagnoses Diagnosis Sequela of bacterial infection documented in this encounter Care Teams Composition Roofer Relationship Specialty Start Date End Date Arnulfo Alvarenga MD PCP - General Family Practice 10/09/13 documented as of this encounter
--- OUTSIDE RECORDS SUMMARY | 2023-09-01 10:40 | XMS_ITS | Clinical Summary ---
Author Name Unknown Organization [place] Address [address] [facility] [place] [address] Care Team Providers Care Dust Handler Name Role Phone Arnulfo Alvarenga MD Primary Care Provider [phone] Active Problems Problem Noted Date Diagnosed Date Cervical radiculopathy 10/04/2013 Encounters Date Type Department Care Team Description 08/03/2023 1:30 PM EXTENSION DIVISION DIRECTOR Ancillary Procedure [address] [phone] Frederick Wu MD Sequela of bacterial infection 08/03/2023 Travel from Last 3 Months Social History Tobacco Use Types Packs/Day Years Used Date Smoking Tobacco: Never Assessed Adolescent Education Answer Date Record ed Getting School Help Needed Not on file 07/25 Sex and Gender Information Value Date Recorded Sex Assigned at Not on file Gender Identity Not on file Sexual Orientation Not on file Last Filed Vital Signs Vital Sign Reading Time Taken Comments Blood Pressure - - Pulse - - Temperature - - Respiratory Rate - - Oxygen Saturation - - Inhaled Oxygen Concentration - - Weight 85.5 kg (188 lb 6.4 oz) 08/03/2023 1:25 P M EXTENSION DIVISION DIRECTOR Height 157 cm (5' 1.81) 08/03/2023 1:25 PM EXTENSION DIVISION DIRECTOR Body Mass Index 34.67 08/03/2023 1:25 PM EXTENSION DIVISION DIRECTOR Plan of Treatment Health Maintenance Due Date Last Done Comments ADVANCE CARE PLANNING 1959 ANNUAL REVIEW OF HM ORDERS 1959 CT COLONOGRAPHY 1959 FIT 1959 FLEX SIG 1959 MAMMO SCREENING 1959 sDNA (Cologuard) 1959 COLONOSCOPY 11/01/1969 COLORECTAL CANCER SCREENING 11/01/1969 HIV SCREENING 11/01/1974 HEPATITIS C SCREENING 11/01/1977 MEDICARE ANNUAL WELLNESS VISIT 11/01/1977 PAP 11/01/1980 LIPID 11/01/2004 DTAP/TDAP/TD IMMUNIZATION (1 - Tdap) 04/11/2013 04/10/2013, 01/14/2009 RSV VACCINE ( & 60+) (1 - 1-dose 60+ series) 2019 COVID-19 Vaccine (5 - season) 2023 12/23/2021, 08/06/2021, 11/06/2020, Additional history exists INFLUENZA VACCINE (#1) 2023 2, 09/09/2021, 09/04/2020, Additional history exists PHQ-2 (once per calendar year) 2023 Pneumococcal Vaccine: Pediatrics (0 to 5 Years) and At-Risk Patients (6 to 64 Years) Aged Out 02/20/2018, 03/18/2009 No longer eligibl e based on patient's age to complete this topic ZOSTER IMMUNIZATION Completed 02/13/2019, 8 HPV IMMUNIZATION Aged Out No longer e ligible based on patient's age to complete this topic IPV IMMUNIZATION Aged Out No longer e ligible based on patient's age to complete this topic MENINGITIS IMMUNIZATION Aged Out No l onger eligible based on patient's age to complete this topic RSV MONOCLONAL ANTIBODY Aged Out No l onger eligible based on patient's age to complete this topic Procedures Procedure Name Priority Date/Time Associated Diagnosis Comments XR CHEST 2 VIEWS Routine 08/03/2023 1:24 PM EXTENSION DIVISION DIRECTOR Sequela of bacterial infection from Last 3 Months Results * XR Chest 2 Views (08/03/2023 1:24 PM EXTENSION DIVISION DIRECTOR) Anatomical Region Laterality Modality Chest Computed Radiogr aphy Impressions 08/03/2023 1:56 PM EXTENSION DIVISION DIRECTOR IMPRESSION: Small left pleural effusion with adjacent opacity that could reflect atelectasis or infection. No pneumothorax. Right lung is relatively clear. Cardiomediastinal silhouette is unremarkable. Moderate stool within the visualized transverse colon. LUKASZ DE LA GARZA MD Narrative 08/03/2023 1:56 PM EXTENSION DIVISION DIRECTOR CHEST TWO VIEWS August 03, 2023 1:24 [...] Frederick Wu MD IMG DIAGNOSTIC IMAGING ORDERABLES from Last 3 Months Care Teams Dust Handler Relationship Specialty Start Date End Date Arnulfo Alvarenga MD PCP - General Family Practice 10/09/13
--- OUTSIDE RECORDS SUMMARY | 2023-09-01 10:40 | XMS_ITS | Encounter Summary ---
Author Name Unknown Organization [place] Address [address] [facility] [place] [address] Care Team Providers Care Nursing Resident Name Role Phone Arnulfo Alvarenga MD Primary Care Provider [phone] Encounter Details Date Type Department Care Team (Latest Contact Info) Description 08/03/2023 Travel Social History Tobacco Use Types Packs/Day Years Used Date Smoking Tobacco: Never Assessed Adolescent Education Answer Date Record ed Getting School Help Needed Not on file 07/25 Sex and Gender Information Value Date Recorded Sex Assigned at Not on file Gender Identity Not on file Sexual Orientation Not on file documented as of this encounter Plan of Treatment Not on file documented as of this encounter Visit Diagnoses Not on filedocumented in this encounter Care Teams Nursing Resident Relationship Specialty Start Date End Date Arnulfo Alvarenga MD PCP - General Family Practice 10/09/13 documented as of this encounter
--- OUTSIDE RECORDS SUMMARY | 2023-09-01 10:40 | XMS_ITS | Referral Summary ---
Author Name Unknown Organization [place] Address [address] [facility] [place] [address] Care Team Providers Care Apple Packing Header Name Role Phone Arnulfo Alvarenga MD Primary Care Provider [phone] Encounters Date Type Department Care Team Description 08/03/2023 Travel 08/03/2023 1:30 PM CARD SCRAPER Ancillary Procedure [address] [phone] Frederick Wu MD Sequela of bacterial infection from Last 3 Months Active Problems Problem Noted Date Diagnosed Date Cervical radiculopathy 10/04/2013 Social History Tobacco Use Types Packs/Day Years [...] lb 6.4 oz) 08/03/2023 1:25 P M CARD SCRAPER Height 157 cm (5' 1.81) 08/03/2023 1:25 PM CARD SCRAPER Body Mass Index 34.67 08/03/2023 1:25 PM CARD SCRAPER Plan of Treatment Not on file Procedures Procedure Name Priority Date/Time Associated Diagnosis Comments XR CHEST 2 VIEWS Routine 08/03/2023 1:24 PM CARD SCRAPER Sequela of bacterial infection from Last 3 Months Results * XR Chest 2 Views (08/03/2023 1:24 PM CARD SCRAPER) Anatomical Region Laterality Modality Chest Computed Radiogr aphy Impressions 08/03/2023 1:56 PM CARD SCRAPER IMPRESSION: Small left pleural effusion with adjacent opacity that could reflect atelectasis or infection. No pneumothorax. Right lung is relatively clear. Cardiomediastinal silhouette is unremarkable. Moderate stool within the visualized transverse colon. LUKASZ DE LA GARZA MD Narrative 08/03/2023 1:56 PM CARD SCRAPER CHEST TWO VIEWS August 03, 2023 1:24 [...] ORDERABLES from Last 3 Months Care Teams Apple Packing Header Relationship Specialty Start Date End Date Arnulfo Alvarenga MD PCP - General Family Practice 10/09/13
--- OUTSIDE RECORDS SUMMARY | 2023-09-01 10:40 | XMS_ITS | Clinical Summary ---
Author Name Unknown Organization [facility] Address [place], [place] [address] Care Team Providers Care [employer] Name Role Phone Arnulfo Alvarenga MD Primary Care Provider [phone] Francine GerardyD, LP Unavailable [phone] Allergies Active Allergy Reactions Criticality Noted Date Comments Sulfa (Sulfonamide Antibiotics) Other - Describe In Comment Field 01/09/2013 Facial swelling and itching Medications Medication Sig Dispensed Refills Start Date End Date Status amLODIPine (NORVASC) 10 mg tablet Take 1 tablet by mouth once daily. 0 01/09/2013 Active acyclovir (ZOVIRAX) 400 mg tablet Take 400 mg by mouth 3 times daily if needed (genital herpes). 30 tablet 0 01/09/2013 Active buprenorphine-nalox one, 8 mg-2 mg, (SUBOXONE) sublingual tablet Take two and a half tablets daily 0 08/07/2014 Active omeprazole (PRILOSEC) 40 mg Delayed-Release capsule Take 40 mg by mouth once daily before a meal. 8 07/25/2015 Active BiPapIndications:OS A (obstructive sleep apnea),Central sleep apnea comorbid with prescribed opioid use, severe BIPAP machine for home use at pressure: epap 5cm/H2O, PS 3-15 1 Device 0 06/07/2016 Active VENTOLIN HFA 90 mcg/actuation inhaler Inhale 1 Puff by mouth every 4 hours if needed for Shortness Of Breath. 0 09/22/2016 Active buPROPion (WELLBUTRIN XL) 300 mg Extended-Release tabletIndications:G AD (generalized anxiety disorder),PTSD (post-traumatic stress disorder) Take 1 tablet by mouth every morning. 30 tablet 3 05/30/2019 Active hydrOXYzine HCL (ATARAX) 25 mg tabletIndications:G AD (generalized anxiety disorder) Take 1 tablet by mouth 3 times daily if needed for Anxiety. 30 tablet 2 01/09/2020 Active amitriptyline (ELAVIL) 50 mg tablet Take 50 mg by mouth at bedtime. 0 Active albuterol-ipratropi um (DUONEB) (2.5-0.5 mg) in 3 mL NEBULIZATION solution Inhale 1 Neb via a nebulizer every 6 hours. 0 Active simvastatin (Zocor) 20 mg tablet Take 20 mg by mouth at bedtime. 0 Active fluticasone vct-cxtkjtsmemwv-fm lanterol (Trelegy Ellipta) 100-62.5-25 mcg inhaler Inhale 1 Puff by mouth once daily. 0 Active FERROUS SULFATE 324 OR 325 MG, 65 MG IRON, TABLET Take 325 mg by mouth once daily. 0 Active cholecalciferol (Vitamin D) 1,000 unit tablet Take 1,000 units by mouth once daily. 0 Active torsemide (DEMADEX) 20 mg tablet Take 20 mg by mouth once daily. 0 Active Lactobacillus acidophilus (PROBIOTIC ACIDOPHILUS ORAL) Take 1 Capsule by mouth once daily. 0 Active Ldmte-7-FXP-EPA-Fis h Oil (Fish OiL) 1,000 mg (120 mg-180 mg) cap Take 1 Capsule by mouth once daily. 0 Active metoprolol succinate SR (TOPROL XL) 25 mg as half tablet Take 25 mg by mouth once daily. 0 Active Biotin 1 mg tablet Take 1 Tablet by mouth once daily. 0 Active acetaminophen (TYLENOL EXTRA STRGTH) 500 mg tabletIndications:A cute postoperative pain Take 2 Tablets (1,000 mg) by mouth every 6 hours. Max acetaminophen dose: 4000mg in 24 hrs. 100 Tablet 0 07/25/2023 Active ibuprofen (ADVIL; MOTRIN) 600 mg tabletIndications:A cute postoperative pain Take 1 Tablet (600 mg) by mouth every 6 hours. Maximum of 3200 mg in 24 hours. 100 Tablet 0 07/25/2023 Active sennosides (SENNA) 8.6 mg tabletIndications:C onstipation, unspecified constipation type Take 1-2 Tablets (8.6-17.2 mg) by mouth 2 times daily if needed for Constipation. 20 Tablet 0 07/25/2023 Active oxygen-air delivery systems (HOME OXYGEN)Indications: Pneumonia of left lower lobe due to infectious organism Oxygen for home use. Liters per minute: 2 per nasal cannula. Frequency of use: Continuous with portability.;. Length of need: 3 Months. 1 Each 0 07/26/2023 Active amoxicillin-clavula ham 875-125 mg tablet (AUGMENTIN)Indicati ons:lower respiratory infection Take 1 Tablet by mouth two times daily with meals for 10 days. 20 Tablet 0 07/27/2023 3 Active Problems Problem Noted Date Diagnosed Date Empyema of lung 07/17/2023 Pneumonia of left lower lobe due to infectious o rganism 07/17/2023 Mild episode of recurrent major depressive disor sabas 05/30/2019 Recurrent major depressive disorder, in full rem ission 02/12/2019 LUCERO 02/04/2016 AHI-67, mostly centrals pt on subo xone 06/07/2016 Central sleep apnea comorbid with prescribed opioid use, severe 06/07/2016 Smoker 02/05/2015 Major depressive disorder, recurrent episode, mi ld 03/06/2014 Hepatitis C 08/07/2013 Insomnia 01/09/2013 PTSD (post-traumatic stress disorder) 01/09/2013 MARGARETTE (generalized anxiety disorder) 01/09/2013 HTN (hypertension) 01/09/2013 GERD (gastroesophageal reflux disease) 3 Resolved Problems Problem Noted Date Diagnosed Date Resolved Date Major depressive disorder, r ecurrent episode, mild 11/16/2013 11/16/2013 Major depressive disorder, r ecurrent episode, moderate 11/16/2013 02/06/2014 Depression, major, recurrent, in remission 01/09/2013 10/31/2014 Encounters Date Type Department Care Team Description 08/08/2023 8:30 AM ATHLETICS DIRECTOR Phone Office Visit [facility] [address] [facility] [address] [place] [address] Francine Gerard, Ita, VINCE Individual Therapy; Phone Visit 07/19/2023 12:06 PM ATHLETICS DIRECTOR Anesthesia Event [facility] [address] [place] [address] Migue Garcia MD Nye, Brian Charles, CRNA 07/19/2023 11:45 AM ATHLETICS DIRECTOR - 07/19/2023 2:26 PM ATHLETICS DIRECTOR Surgery [address] [address] Frederick Wu MD LEFT VIDEO ASSITED THORACOSCOPY, LEFT THORACOTOMY TOTAL DECORTICATION LEFT LUNG 07/18/2023 Lab Requisition [facility] [phone] Indiana Barclay MD 07/17/2023 7:27 PM ATHLETICS DIRECTOR - 07/27/2023 12:09 PM ATHLETICS DIRECTOR Hospital Encounter [address] [place] [address] s, U Hospitalist Cathie Mack MBBS Mills, Elliot George, MD Kirshbaum, Kojo Landa MD Acute postoperative pain (Primary Dx); Constipation, unspecified constipation type; Pneumonia of left lower lobe due to infectious organism Discharge Disposition: Home Health 07/17/2023 Travel 07/15/2023 5:00 PM ATHLETICS DIRECTOR Orders Only [facility] & [address] [address] 2 scans: (2-Ord) ECHO TTE COMPLETE WO CONTRAST ([id number]) 06/13/2023 9:30 AM CDT Phone Office Visit [place] [phone] [facility] [address] [facility] [address] [place] [address] Rajani, Francine A PsyD, LP Individual Therapy; Phone Visit 06/01/[address] [address] Rajani Francine A, PsyD, LP Form from Last 3 Months Immunizations Name Administration Dates Next Due Influenza, IIV4 05/13/2016 Family History Relation Name Status Comments Brother Alive Father Alive Mother Social History Tobacco Use Types Packs/Day Years Used Date Smoking Tobacco: Every Day Cigarettes 0.5 30 Started: 10/16/1986; Last attempted to quit: 10/16/2016 Smokeless Tobacco: Never Tobacco Cessation:Ready to Q uit: Yes; Counseling Given: Yes Alcohol Use Standard Drinks/Week Comments Yes 0 (1 standard drink = 0.6 oz pur e alcohol) PHQ-2 Answer Date Recorded PHQ-2 TOTAL SCORE 2 06/13/2023 Social Connections Answer Date Recorded Frequency of Communication with Friends and Fami ly 0 07/17/2023 Financial Resource Strain Answer Date R ecorded Difficulty of Paying Living Expenses 3 07/17/2023 Difficulty of Paying Living Expenses Not on file 07/17/2023 Food Insecurity Answer Date Recorded Worried About Running Out of Food in the Last Ye ar 1 07/17/2023 Transportation Needs Answer Date Record ed Lack of Transportation (Medical) 1 07/17/2023 Housing Stability Answer Date Recorded Unable to Pay for Housing in the Last Year 1 07/17/2023 Sex and Gender Information Value Date Recorded Sex Assigned at Not on file Gender Identity Not on file Sexual Orientation Not on file Obstetrics History Last Filed Vital Signs Vital Sign Reading Time Taken Comments Blood Pressure 143/88 07/27/2023 8:45 AM ATHLETICS DIRECTOR Pulse 84 07/27/2023 8:54 AM ATHLETICS DIRECTOR Temperature 36.7 ??C (98 ??F) 07/27/2023 8:54 AM ATHLETICS DIRECTOR Respiratory Rate 16 07/27/2023 8:54 AM ATHLETICS DIRECTOR Oxygen Saturation 94% 07/27/2023 8:45 AM ATHLETICS DIRECTOR Inhaled Oxygen Concentration - - Weight 91 kg (200 lb 9.6 oz) 07/27/2023 5:43 AM ATHLETICS DIRECTOR Height 162.6 cm (5' 4) 07/17/2023 8:29 PM ATHLETICS DIRECTOR Body Mass Index 34.43 07/17/2023 8:29 PM ATHLETICS DIRECTOR Plan of Treatment Upcoming Encounters Date Type Department Care Team (Late st Contact Info) Description 09/12/2023 2:00 PM ATHLETICS DIRECTOR Phone Office Visit [facility] [address] [address] Francine Gerard PsyD, LP [address] [place] [address] 09/28/2023 9:30 AM ATHLETICS DIRECTOR Phone Office Visit [facility] [address] [facility] [address] [place], [place] [phone] Francine Gerard PsyD, LP [address] [address] 2023 9:30 AM CDT Phone Office Visit [facility] [address] [place], [place] [phone] Rajani, Francine A, PsyD, LP [address] [place], [place] [phone] 11/23/2023 9:30 AM CDT Phone Office Visit [facility] [address] [place], [place] [phone] Rajani, Francine A, PsyD, LP [address] [place], [place] [phone] Health Maintenance Due Date Last Done Comments Pneumococcal series for age 6-64 (1 of 2 - PCV) 11/01/1965 Tdap 11/01/1970 HIV for age 15-65 11/01/1974 Colonoscopy through age 75 11/01/2004 Zoster (shingles) series for age 50+ (1 of 2) 11/01/2009 Mammogram for age 45-75 06/22/2013 06/22/20 12 (Completed outside of [facility]) Lipids for age 45-75 07/12/2017 07/12/2012 (Completed outside of [facility]) BMI (ht and wt on same day) for age 18+ 10/21/2017 10/21/2016, 02/05/2016 Pap test for age 21-65 09/16/2018 6, 09/16/2015, 07/24/2012 (Completed outside of [facility]) Tetanus booster 12/21/2020 12/21/2010 (Comp leted outside of [facility]) COVID-19 vaccine series (2022-24 season) 2023 12/23/2021, 08/06/2021, 11/06/2020, Additional history exists Influenza for age 50-64 04/22/2023 05/13/2016 Depression screening for age 12+ 06/13/2024 06/13/2023, 05/27/2023, 02/16/2023, Additional history exists Hepatitis C screening for ag e 18-79 Completed 08/27/2013, 08/27/2013 Procedures Procedure Name Priority Date/Time Associated Diagnosis Comments SCAN CORRESP-EKG RESULTS 07/26/2023 11:07 AM ATHLETICS DIRECTOR XR CHEST 1 VIEW PORTABLE Timed 07/25/2023 5:15 AM ATHLETICS DIRECTOR XR CHEST 1 VIEW PORTABLE Timed 07/24/2023 5:27 AM ATHLETICS DIRECTOR XR CHEST 1 VIEW PORTABLE Routine 07/22/2023 5:41 AM ATHLETICS DIRECTOR WHITE BLOOD COUNT Early AM 07/22/2023 3:4 6 AM ATHLETICS DIRECTOR HEMOGLOBIN Early AM 07/22/2023 3:46 AM ATHLETICS DIRECTOR PLATELET COUNT Early AM 07/22/2023 3:46 AM ATHLETICS DIRECTOR MAGNESIUM Early AM 07/22/2023 3:46 AM ATHLETICS DIRECTOR POTASSIUM Early AM 07/22/2023 3:46 AM ATHLETICS DIRECTOR CREATININE Early AM 07/22/2023 3:46 AM ATHLETICS DIRECTOR SODIUM Early AM 07/22/2023 3:46 AM ATHLETICS DIRECTOR XR CHEST 1 VIEW PICC OR CVAD PLACEMENT PORTABLE YOHANA 07/21/2023 2:33 PM ATHLETICS DIRECTOR SCAN-CARDIAC STRIP 07/21/2023 10 :09 AM ATHLETICS DIRECTOR WHITE BLOOD COUNT Early AM 07/21/2023 6:5 3 AM ATHLETICS DIRECTOR HEMOGLOBIN Early AM 07/21/2023 6:53 AM ATHLETICS DIRECTOR PLATELET COUNT Early AM 07/21/2023 6:53 AM ATHLETICS DIRECTOR MAGNESIUM Early AM 07/21/2023 5:42 AM ATHLETICS DIRECTOR POTASSIUM Early AM 07/21/2023 5:42 AM ATHLETICS DIRECTOR CREATININE Early AM 07/21/2023 5:42 AM ATHLETICS DIRECTOR SODIUM Early AM 07/21/2023 5:42 AM ATHLETICS DIRECTOR XR CHEST 1 VIEW PORTABLE Routine 07/21/2023 5:28 AM ATHLETICS DIRECTOR SCAN-CARDIAC STRIP 07/20/2023 11 :00 PM ATHLETICS DIRECTOR SCAN-CARDIAC STRIP 07/20/2023 4: 55 PM ATHLETICS DIRECTOR SCAN-CARDIAC STRIP 07/20/2023 9: 30 AM ATHLETICS DIRECTOR XR CHEST 1 VIEW PORTABLE Routine 07/20/2023 6:06 AM ATHLETICS DIRECTOR WHITE BLOOD COUNT Early AM 07/20/2023 5:4 0 AM ATHLETICS DIRECTOR HEMOGLOBIN Early AM 07/20/2023 5:40 AM ATHLETICS DIRECTOR PLATELET COUNT Early AM 07/20/2023 5:40 AM ATHLETICS DIRECTOR MAGNESIUM Early AM 07/20/2023 5:40 AM ATHLETICS DIRECTOR POTASSIUM Early AM 07/20/2023 5:40 AM ATHLETICS DIRECTOR CREATININE Early AM 07/20/2023 5:40 AM ATHLETICS DIRECTOR SODIUM Early AM 07/20/2023 5:40 AM ATHLETICS DIRECTOR SCAN-CARDIAC STRIP 07/20/2023 4: 01 AM ATHLETICS DIRECTOR SCAN-CARDIAC STRIP 07/19/2023 4: 19 PM ATHLETICS DIRECTOR SCAN-CARDIAC STRIP 07/19/2023 4: 19 PM ATHLETICS DIRECTOR XR CHEST 1 VIEW PORTABLE STAT 07/19/2023 2:41 PM ATHLETICS DIRECTOR TISSUE CULTURE, STAIN (AEROBIC) Today 07/19/2023 12:52 PM ATHLETICS DIRECTOR ANAEROBIC CULTURE Today 07/19/2023 12: 52 PM ATHLETICS DIRECTOR ENDOTRACHEAL TUBE Routine 07/19/2023 12: 41 PM ATHLETICS DIRECTOR ENDOTRACHEAL TUBE Routine 07/19/2023 12: 41 PM ATHLETICS DIRECTOR ENDOTRACHEAL TUBE Routine 07/19/2023 12: 41 PM ATHLETICS DIRECTOR ENDOTRACHEAL TUBE Routine 07/19/2023 12: 41 PM ATHLETICS DIRECTOR THORACOSCOPY 07/19/2023 11:51 AM ATHLETICS DIRECTOR left pneumonia/empyema . Case Notes 1200 - 2HRS FIELD MANAGER BLOOD TYPE STAT 07/19/2023 11:45 AM ATHLETICS DIRECTOR FIELD MANAGER QUESTION TEST STAT 07/19/2023 10:36 AM ATHLETICS DIRECTOR TYPE & SCREEN Preop 07/19/2023 10:36 AM ATHLETICS DIRECTOR CBC WITH AUTO DIFFERENTIAL Preop 07/19/2023 10:36 AM ATHLETICS DIRECTOR PROTIME-INR Preop 07/19/2023 10:36 AM ATHLETICS DIRECTOR CREATININE Preop 07/19/2023 10:36 AM ATHLETICS DIRECTOR BUN Preop 07/19/2023 10:36 AM ATHLETICS DIRECTOR POTASSIUM Preop 07/19/2023 10:36 AM ATHLETICS DIRECTOR CBC WITH AUTO DIFFERENTIAL Preop 07/19/2023 10:36 AM ATHLETICS DIRECTOR WHITE BLOOD COUNT Early AM 07/19/2023 6:4 8 AM ATHLETICS DIRECTOR HEMOGLOBIN Early AM 07/19/2023 6:48 AM ATHLETICS DIRECTOR PLATELET COUNT Early AM 07/19/2023 6:48 AM ATHLETICS DIRECTOR MAGNESIUM Early AM 07/19/2023 6:48 AM ATHLETICS DIRECTOR POTASSIUM Early AM 07/19/2023 6:48 AM ATHLETICS DIRECTOR CREATININE Early AM 07/19/2023 6:48 AM ATHLETICS DIRECTOR SODIUM Early AM 07/19/2023 6:48 AM ATHLETICS DIRECTOR SCAN-CARDIAC STRIP 07/18/2023 6: [address] CHEST WO Routine 07/18/2023 12:01 PM ATHLETICS DIRECTOR MAGNESIUM Early AM 07/18/2023 4:50 AM ATHLETICS DIRECTOR CREATININE Early AM 07/18/2023 4:50 AM ATHLETICS DIRECTOR POTASSIUM Early AM 07/18/2023 4:50 AM ATHLETICS DIRECTOR SODIUM Early AM 07/18/2023 4:50 AM ATHLETICS DIRECTOR BILIRUBIN,TOTAL Early AM 07/18/2023 4:50 AM ATHLETICS DIRECTOR ALT (SGPT) Early AM 07/18/2023 4:50 AM ATHLETICS DIRECTOR AST (SGOT) Early AM 07/18/2023 4:50 AM ATHLETICS DIRECTOR PLATELET COUNT Early AM 07/18/2023 4:50 AM ATHLETICS DIRECTOR HEMOGLOBIN Early AM 07/18/2023 4:50 AM ATHLETICS DIRECTOR ALK PHOSPHATASE Early AM 07/18/2023 4:50 AM ATHLETICS DIRECTOR WHITE BLOOD COUNT Early AM 07/18/2023 4:5 0 AM ATHLETICS DIRECTOR SCAN-CARDIAC STRIP 07/17/2023 9: 43 PM ATHLETICS DIRECTOR LAB TRACKING EVENT Routine 07/17/2023 11 :53 AM ATHLETICS DIRECTOR PATH NON GOLF COURSE ASSISTANT CYTOLOGY Routine 07/17/2023 11:53 AM ATHLETICS DIRECTOR SCAN-CARDIAC STRIP 07/17/2023 12 :00 AM ATHLETICS DIRECTOR SCAN-OPERATIVE/PROCE DURE REPORT 07/17/2023 12:00 AM ATHLETICS DIRECTOR ECHO TTE COMPLETE WO CONTRAST Routine 07/15/2023 3:34 PM ATHLETICS DIRECTOR SOB (shortness of breath) from Last 3 Months Results * SCAN CORRESP-EKG RESULTS (07/26/2023 11:07 AM ATHLETICS DIRECTOR) Narrative 07/26/2023 11:07 AM ATHLETICS DIRECTOR Ordered by an unspecified provider. Other Clinical Staff OTHER * XR CHEST 1 VIEW PORTABLE (07/25/2023 5:15 AM ATHLETICS DIRECTOR) Only the most recent of6 resultswithin the time period is included. Anatomical Region Laterality Modality HEART, THORAX, CHEST Computed Ra diography 07/25/2023 5:15 AM ATHLETICS DIRECTOR Impressions 07/25/2023 7:05 AM ATHLETICS DIRECTOR Left thoracotomy with single basilar chest tube tip in the medial base, position unchanged. Previous additional 2 chest tubes have been removed. No pneumothorax. Left basilar atelectasis with small amount of pleural fluid or thickening unchanged. No new infiltrate. Normal pulmonary vascularity. Narrative 07/25/2023 7:05 AM ATHLETICS DIRECTOR For Patients: As a result of the Cures Act, medical imaging exams and procedure reports are released immediately into your electronic medical record. You may view this report before your referring provider. If you have questions, please contact your health care provider. EXAM: XR CHEST 1 VIEW PORTABLE LOCATION: [facility] MEDICAL IMAGING DATE: 07/25/2023 INDICATION: Post procedure. COMPARISON: 07/24/2023 at 5:17 AM Procedure Note Eusebio Leong MD - 07/25/2023 For Patients: As a result of the Cures Act, medical imagingexams and procedure reports are released immediately into your electronicmedical record. You may view this report before your referring provider.If you have questions, please contact your health care provider. EXAM: XR CHEST 1 VIEW PORTABLE LOCATION: [facility] MEDICAL [facility]AGING DATE: 07/25/2023 INDICATION: Post procedure. COMPARISON: 07/24/2023 at 5:17 AM IMPRESSION: Left thoracotomy with single basilar chest tube tip in the medial base,position unchanged. Previous additional 2 chest tubes have been removed.No pneumothorax. Left basilar atelectasis with small amount of pleuralfluid or thickening unchanged. No new infiltrate. Normal pulmonaryvascularity. Frederick Wu MD GENERAL IMAGIN G * PLATELET COUNT (07/22/2023 3:46 AM ATHLETICS DIRECTOR) Only the most recent of5 resultswithin the time period is included. PLATELET COUNT 254 140 - 440 thou/cu mm 07/22/2023 4:14 AM ATHLETICS DIRECTOR [facility] MPV 9.5 6.5 - 11.0 fL 07/22/2023 4:14 AM ATHLETICS DIRECTOR [facility] Blood BLOOD SPECIMEN / Unknown Venipuncture / Unknown 07/22/2023 3:46 AM ATHLETICS DIRECTOR 07/22/2023 4:11 AM ATHLETICS DIRECTOR Juan José Marie MD HEMATOLOGY Performing Organization Address [facility]/ZIP Ri de Phone Number [facility] SENDOUT INTERNAL ZIP [phone] [place] [phone] * WHITE BLOOD COUNT (07/22/2023 3:46 AM ATHLETICS DIRECTOR) Only the most recent of5 resultswithin the time period is included. WHITE BLOOD COUNT 9.5 4.5 - 11.0 thou/cu mm 07/22/2023 4:14 AM ATHLETICS DIRECTOR [facility] NRBC 0.0 % 07/22/2023 4:14 AM ATHLETICS DIRECTOR [facility] ABS NRBC 0.0 thou /cu mm 07/22/2023 4:14 AM ATHLETICS DIRECTOR [facility] Blood BLOOD SPECIMEN / Unknown Venipuncture / Unknown 07/22/2023 3:46 AM ATHLETICS DIRECTOR 07/22/2023 4:11 AM ATHLETICS DIRECTOR Juan José Marie MD HEMATOLOGY Performing Organization Address [facility]/ZIP Co de Phone Number [facility] SENDOUT INTERNAL ZIP [phone] [place] [phone] * (ABNORMAL) HEMOGLOBIN (07/22/2023 3:46 AM ATHLETICS DIRECTOR) Only the most recent of5 resultswithin the time period is included. HEMOGLOBIN 8.6(L) 12.0 - 16.0 g/dL 07/22/2023 4:14 AM ATHLETICS DIRECTOR [facility] MCV 96 80 - 100 fL 07/22/2023 4:14 AM ATHLETICS DIRECTOR [facility] Blood BLOOD SPECIMEN / Unknown Venipuncture / Unknown 07/22/2023 3:46 AM ATHLETICS DIRECTOR 07/22/2023 4:11 AM ATHLETICS DIRECTOR Juan José Marie MD HEMATOLOGY [facility] SENDOUT INTERNAL ZIP [phone] [place] [phone] * SODIUM (07/22/2023 3:46 AM ATHLETICS DIRECTOR) Only the most recent of5 resultswithin the time period is included. SODIUM 136 136 - 145 mmol/L 07/22/2023 4:32 AM ATHLETICS DIRECTOR [facility] Blood BLOOD SPECIMEN / Unknown Venipuncture / Unknown 07/22/2023 3:46 AM ATHLETICS DIRECTOR 07/22/2023 4:11 AM ATHLETICS DIRECTOR Juan José Marie MD CHEMISTRY Performing Organization Address [facility]/ZIP Co de Phone Number [facility] SENDOUT INTERNAL ZIP [phone] [place] [phone] * POTASSIUM (07/22/2023 3:46 AM ATHLETICS DIRECTOR) Only the most recent of6 resultswithin the time period is included. POTASSIUM 4.0 3.5 - 5.1 mmol/L 07/22/2023 4:32 AM ATHLETICS DIRECTOR [facility] Blood BLOOD SPECIMEN / Unknown Venipuncture / Unknown 07/22/2023 3:46 AM ATHLETICS DIRECTOR 07/22/2023 4:11 AM ATHLETICS DIRECTOR Juan José Marie MD CHEMISTRY [facility] SENDOUT INTERNAL ZIP [phone] [place] [address] * CREATININE (07/22/2023 3:46 AM ATHLETICS DIRECTOR) Only the most recent of6 resultswithin the time period is included. eGFR >90 >90 mL/min/1.7 3m2 07/22/2023 4:32 AM ATHLETICS DIRECTOR [facility] Comment:As of 2021, eG FR is calculated by the CKD-EPI creatinine equation without race adjustment. ??eGFR can be influenced by muscle mass, exercise, and diet. ??The reported eGFR is an estimation only and is only applicable if the renal function is stable. CREATININE 0.59 0.50 - 0.90 mg/dL 07/22/2023 4:32 AM ATHLETICS DIRECTOR [facility] Blood BLOOD SPECIMEN / Unknown Venipuncture / Unknown 07/22/2023 3:46 AM ATHLETICS DIRECTOR 07/22/2023 4:11 AM ATHLETICS DIRECTOR Juan José Marie MD CHEMISTRY Performing Organization Address [facility]/ZIP Co de Phone Number [facility] SENDOUT INTERNAL ZIP [phone] [place] [phone] * MAGNESIUM (07/22/2023 3:46 AM ATHLETICS DIRECTOR) Only the most recent of5 resultswithin the time period is included. MAGNESIUM 2.0 1.6 - 2.4 mg/dL 07/22/2023 4:32 AM ATHLETICS DIRECTOR [facility] Blood BLOOD SPECIMEN / Unknown Venipuncture / Unknown 07/22/2023 3:46 AM ATHLETICS DIRECTOR 07/22/2023 4:11 AM ATHLETICS DIRECTOR Juan José Marie MD CHEMISTRY Performing Organization Address City/[facility]/ZIP Co de Phone Number [facility] SENDOUT INTERNAL ZIP [phone] [place] [phone] * XR CHEST 1 VIEW PICC OR CVAD PLACEMENT PORTABLE (07/21/2023 2:33 PM ATHLETICS DIRECTOR) Anatomical Region Laterality Modality HEART, THORAX, CHEST Computed Ra diography 07/21/2023 2:33 PM ATHLETICS DIRECTOR Impressions 07/21/2023 2:37 PM ATHLETICS DIRECTOR Right PICC line is at the junction of the right IJ and pointing upwards, unchanged. This needs to be repositioned. Heart mildly enlarged, unchanged. Left thoracotomy with 3 left chest tubes which remain unchanged. Small left effusion with increased airspace opacity at the left lung base, similar to prior examination. Possible trace right effusion. No pneumothorax. Narrative 07/21/2023 2:37 PM ATHLETICS DIRECTOR For Patients: As a result of the Cures Act, medical imaging exams and procedure reports are released immediately into your electronic medical record. You may view this report before your referring provider. If you have questions, please contact your health care provider. EXAM: XR CHEST 1 VIEW PICC OR CVAD PLACEMENT PORTABLE LOCATION: [facility] MEDICAL IMAGING DATE: 07/21/2023 INDICATION: Line placement COMPARISON: 07/21/2023 Procedure Note Mat Daniel MD - 07/21/2023 For Patients: As a result of the Cures Act, medical imagingexams and procedure reports are released immediately into your electronicmedical record. You may view this report before your referring provider.If you have questions, please contact your health care provider. EXAM: XR CHEST 1 VIEW PICC OR CVAD PLACEMENT PORTABLE LOCATION: [facility] MEDICAL IMAGING DATE: 07/21/2023 INDICATION: Line placement COMPARISON: 07/21/2023 IMPRESSION: Right PICC line is at the junction of the right IJ and pointing upwards,unchanged. This needs to be repositioned. Heart mildly enlarged,unchanged. Left thoracotomy with 3 left chest tubes which remainunchanged. Small left effusion with increased airspace opacity at the leftlung base, similar to prior examination. Possible trace right effusion. Nopneumothorax. Juan José Marie MD GENERAL IMAGING * SCAN-CARDIAC STRIP (07/21/2023 10:09 AM ATHLETICS DIRECTOR) Scanner OTHER * SCAN-CARDIAC STRIP (07/20/2023 11:00 PM ATHLETICS DIRECTOR) Scanner OTHER * SCAN-CARDIAC STRIP (07/20/2023 4:55 PM ATHLETICS DIRECTOR) Scanner OTHER * SCAN-CARDIAC STRIP (07/20/2023 9:30 AM ATHLETICS DIRECTOR) Scanner OTHER * SCAN-CARDIAC STRIP (07/20/2023 4:01 AM ATHLETICS DIRECTOR) Scanner OTHER * SCAN-CARDIAC STRIP (07/19/2023 4:19 PM ATHLETICS DIRECTOR) Scanner OTHER * SCAN-CARDIAC STRIP (07/19/2023 4:19 PM ATHLETICS DIRECTOR) Scanner OTHER * (ABNORMAL) TISSUE CULTURE, STAIN (AEROBIC) (07/19/2023 12:52 PM ATHLETICS DIRECTOR) CULTURE RESULT(A) 07/23/2023 10:18 AM ATHLETICS DIRECTOR [facility] CULTURE 1+ Streptococcus intermedius 07/23/2023 10:18 AM ATHLETICS DIRECTOR [facility] GRAM STAIN 2+ PMNs 07/23/2023 10:18 AM ATHLETICS DIRECTOR [facility] GRAM STAIN No Epithelial cells 07/23/2023 10:18 AM ATHLETICS DIRECTOR [facility] GRAM STAIN No RBCs 07/23/2023 10:18 AM ATHLETICS DIRECTOR [facility] GRAM STAIN No organisms seen 023 10:18 AM ATHLETICS DIRECTOR [facility] GRAM STAIN Gram stain performed by [place] 07/23/2023 10:18 AM ATHLETICS DIRECTOR [facility] Tissue SPECIMEN FROM LUNG / Unknown Non-Blood / Unknown 07/19/2023 12:52 PM ATHLETICS DIRECTOR 07/19/2023 1:36 PM ATHLETICS DIRECTOR Narrative Organism Antibiotic Method Susceptibility Streptococcus intermedius PENICILLIN <=0.06: S Streptococcus intermedius CEFTRIAXONE <=0.12: S Streptococcus intermedius ERYTHROMYCIN 2: R Streptococcus intermedius CLINDAMYCIN <=0.25: S Streptococcus intermedius VANCOMYCIN <=0.12: S Streptococcus intermedius AMPICILLIN <=0.25: S Streptococcus intermedius CLARITHROMYCIN R Frederick Wu MD MICROBIOLOGY [facility] [address] [place] [address], [facility] SENDOUT [place] [address]IP [id number] [place] [address] * ANAEROBIC CULTURE (07/19/2023 12:52 PM ATHLETICS DIRECTOR) CULTURE No anaerobes isolated 07/25/2023 11:53 AM ATHLETICS DIRECTOR [facility] Tissue SPECIMEN FROM LUNG / Unknown Non-Blood / Unknown 07/19/2023 12:52 PM ATHLETICS DIRECTOR 07/19/2023 1:36 PM ATHLETICS DIRECTOR Frederick Wu MD MICROBIOLOGY Performing Organization Address City/State/[facility] Co de Phone Number [facility] [address] [address], * HCHG TUBE TRACH PR40, HCHG INSTRUMENT DISP PR10, HCHG STYLET PR1, HCHG MOUTHPIECE PR1 (07/19/2023 12:41 PM ATHLETICS DIRECTOR) Narrative Chris Garcia CRNA - 07/19/2023 12:41 PM ATHLETICS DIRECTOR Chris Garcia CRNA ? 07/19/2023 12:41 PM Procedure: ETT Patient location during procedure: OR ETT Properties Mask Ventilation: easy Final Technique: video laryngoscopy Type: ETT - double lumen left Location: oral Cuffed: yes Tube Size: 7.0 mm Stylet: yes Laryngoscope Blade: Glidescope Blade Size: 3 Cormack-Lehane Grade View: 1 Insertion Attempts: 1 Placement Verification: auscultation, end tidal CO2, symmetrical chest wall movement and fiber optic visualization Assessment: pharynx clear, atraumatic and dentition unchanged Secured at: other (comment) Measured From: lips Tooth guard used and removed: yes Difficulty: 0 (not difficult) Tube Size: 35 Fr Migue Garcia MD ANESTHESIA PX NOT E ORDERABLES * FIELD MANAGER BLOOD TYPE (07/19/2023 11:45 AM ATHLETICS DIRECTOR) ABORH O Rh Positive 07/19/2023 12:[address] [facility] BLOOD BANK Blood BLOOD SPECIMEN / Unknown Non-Lab Venipuncture / Unknown 07/19/2023 11:45 AM ATHLETICS DIRECTOR 07/19/2023 11:49 AM ATHLETICS DIRECTOR Frederick Wu MD BLOOD BANK [facility] BLOOD BANK [address] [place] [address] * FIELD MANAGER QUESTION TEST (07/19/2023 10:36 AM ATHLETICS DIRECTOR) QABT Question Yes 07/19/2023 11:11 AM [facility] BLOOD BANK Blood BLOOD SPECIMEN / Unknown Non-Lab Venipuncture / Unknown 07/19/2023 10:36 AM ATHLETICS DIRECTOR 07/19/2023 10:53 AM [facility] Frederick Wu MD BLOOD BANK Performing Organization Address [facility] Co de Phone Number [facility] BLOOD BANK [address] [place] [address] * (ABNORMAL) CBC WITH AUTO DIFFERENTIAL (07/19/2023 10:36 AM ATHLETICS DIRECTOR) WHITE BLOOD COUNT 15.9(H) 4.5 - 11.0 thou/cu mm 07/19/2023 10:56 AM [facility] RED BLOOD COUNT 4.22 4.00 - 5.20 mil/cu mm 07/19/2023 10:56 AM [facility] HEMOGLOBIN 12.6 12.0 - 16.0 g/dL 07/19/2023 10:56 AM [facility] HEMATOCRIT 38.4 33.0 - 51.0 % 07/19/2023 10:56 AM [facility] MCV 91 80 - 100 fL 07/19/2023 10:56 AM [facility] MCH 29.9 26.0 - 34.0 pg 07/19/2023 10:56 AM [facility] MCHC 32.8 32.0 - 36.0 g/dL 07/19/2023 10:56 AM [facility] RDW 13.7 11.5 - 15.5 % 07/19/2023 10:56 AM [facility] PLATELET COUNT 361 140 - 440 thou/cu mm 07/19/2023 10:56 AM [facility] MPV 9.2 6.5 - 11.0 fL 07/19/2023 10:56 AM [facility] NRBC 0.0 % 07/19/2023 10:56 AM [facility] ABS NRBC 0.0 thou /cu mm 07/19/2023 10:56 AM [facility] % NEUT 83.0 % 07/19/2023 10:56 AM [facility] % LYMPH 7.9 % 07/19/2023 10:56 AM [facility] % MONO 5.4 % 07/19/2023 10:56 AM [facility] % EOS 1.4 % 07/19/2023 10:56 AM [facility] % BASO 0.4 % 07/19/2023 10:56 AM [facility] % IMMATURE GRAN (METAS,MYELOS,OK OS) 1.9 % 07/19/2023 10:56 AM [facility] ABSOLUTE NEUTROPHILS 13.2(H) 1.7 - 7.0 thou/cu mm 07/19/2023 10:56 AM [facility] ABSOLUTE LYMPHOCYTES 1.3 0.9 - 2.9 thou/cu mm 07/19/2023 10:56 AM [facility] ABSOLUTE MONOCYTES 0.9(H) <0.9 thou/cu mm 07/19/2023 10:56 AM [facility] ABSOLUTE EOSINOPHILS 0.2 <0.5 thou/cu mm 07/19/2023 10:56 AM [facility] ABSOLUTE BASOPHILS 0.1 <0.3 thou/cu mm 07/19/2023 10:56 AM [facility] ABSOLUTE IMMATURE GRANULOCYTES(MET ,MYELOS,PROS) 0.3(H) <0.3 thou/cu mm 07/19/2023 10:56 AM [facility] Blood BLOOD SPECIMEN / Unknown Non-Lab Venipuncture / Unknown 07/19/2023 10:36 AM ATHLETICS DIRECTOR 07/19/2023 10:53 AM [facility] Frederick Wu MD HEMATOLOGY [facility] SENDOUT [place] [address] [phone] [place] [address] * Type and Screen (07/19/2023 10:36 AM [facility]) ABORH O Rh Positive 07/19/2023 11:43 AM [facility] BLOOD BANK ANTIBODY SCREEN Negative Negative 07/19/2023 11:[address] [facility] BLOOD BANK SPECIMEN EXPIRATION DATE/TIME 07/22/23 23:59 07/19/2023 11:43 AM [facility] BLOOD BANK Blood BLOOD SPECIMEN / Unknown Non-Lab Venipuncture / Unknown 07/19/2023 10:36 AM ATHLETICS DIRECTOR 07/19/2023 10:53 AM ATHLETICS DIRECTOR Frederick Wu MD BLOOD BANK [facility] BLOOD BANK [address] [place] [address] * BUN (07/19/2023 10:36 AM ATHLETICS DIRECTOR) BUN 13 8 - 23 mg/dL 07/19/2023 11:20 AM [facility] Blood BLOOD SPECIMEN / Unknown Non-Lab Venipuncture / Unknown 07/19/2023 10:36 AM ATHLETICS DIRECTOR 07/19/2023 10:53 AM ATHLETICS DIRECTOR Frederick Wu MD CHEMISTRY [facility] SENDOUT [place] [address] [phone] [place] [address] * (ABNORMAL) Protime - INR (07/19/2023 10:36 AM ATHLETICS DIRECTOR) INR 1.1 <1.3 07/19/2023 11:16 AM [facility] PROTIME 12.5(H) 10.3 - 12.3 sec 07/19/2023 11:16 AM [facility] Blood BLOOD SPECIMEN / Unknown Non-Lab Venipuncture / Unknown 07/19/2023 10:36 AM ATHLETICS DIRECTOR 07/19/2023 10:53 AM ATHLETICS DIRECTOR Narrative [facility] - 07/19/2023 11:16 AM ATHLETICS DIRECTOR ?Therapeutic Range 2.0-3.0 for most anticoagulated patients 2.5-3.5 or 4.0 for high risk patients The INR is only used for patients on stable oral anticoagulant therapy. It makes no significant contribution to the diagnosis or treatment of patients whose Protime is prolonged for other reasons. INR results are increased when heparin levels exceed 1.0 U/mL, which corresponds to an aPTT >125 seconds if the patient is on UFH. Frederick Wu MD HEMATOLOGY [facility] SENDOUT [place] [phone] [place] [address] * SCAN-CARDIAC STRIP (07/18/2023 6:54 PM ATHLETICS DIRECTOR) Scanner OTHER * CT CHEST WO (07/18/2023 12:01 PM ATHLETICS DIRECTOR) Anatomical Region Laterality Modality CHEST, THORAX, HEART Computed To mography 07/18/2023 12:0 1 PM ATHLETICS DIRECTOR Impressions 07/18/2023 1:50 PM ATHLETICS DIRECTOR 1. ??Fxact-rg-nprzorrq loculated left empyema. Tiny foci of air within the pleural fluid is likely from recent thoracentesis. 2. ??There is predominantly lung base atelectasis and/or scarring. However, there are a few tiny foci of air within the left lower lobe atelectatic lung versus the adjacent empyema and could represent a necrotizing pneumonia. 3. ??Smooth septal thickening and groundglass opacities in the upper lungs could be seen with edema, inflammatory or infectious etiologies. 4. ??Trace pericardial and right pleural effusions. Narrative 07/18/2023 1:50 PM ATHLETICS DIRECTOR For Patients: As a result of the Century Cures Act, medical imaging exams and procedure reports are released immediately into your electronic medical record. You may view this report before your referring provider. If you have questions, please contact your health care provider. EXAM: CT CHEST WO LOCATION: [facility] MEDICAL IMAGING DATE: 07/18/2023 INDICATION: Empyema COMPARISON: None TECHNIQUE: CT chest without IV contrast. Multiplanar reformats were obtained. Dose reduction techniques were used. CONTRAST: None. FINDINGS: LUNGS AND PLEURA: There is a mvjzp-lj-xpqkkzrg loculated left pleural effusion with thickening of the visceral and parietal pleura. Tiny foci of air within the pleural fluid is likely from recent thoracentesis. Small adjacent consolidative opacities in the left lower lobe and lingula and linear opacities throughout the lung bases are favored to reflect atelectasis and/or scarring. However, there appear to be a few small foci of air within the left lower lobe on series 4, images 101 and 106 which may not be within the pleural fluid. No distinct evidence of pneumonia. There is also a small focus of chronic atelectasis in the medial right middle lobe. There is smooth septal thickening and ground glass opacities in the lung apices and a background of mild emphysematous changes of the lung parenchyma. Trace right pleural effusion. MEDIASTINUM/AXILLAE: A right PICC line terminates in the proximal superior vena cava. No thoracic lymphadenopathy by size criteria. Prominent thoracic lymph nodes are likely reactive. The heart is prominent size with trace pericardial fluid. Atherosclerosis without thoracic aortic aneurysm. CORONARY ARTERY CALCIFICATION: Mild to moderate UPPER ABDOMEN: Small hiatal hernia. MUSCULOSKELETAL: No aggressive osseous lesion. Procedure Note Eusebio Horta MD - 07/18/2023 For Patients: As a result of the Cures Act, medical imagingexams and procedure reports are released immediately into your electronicmedical record. You may view this report before your referring provider.If you have questions, please contact your health care provider. EXAM: CT CHEST WO LOCATION: [facility] MEDICAL IMAGING DATE: 07/18/2023 INDICATION: Empyema COMPARISON: None TECHNIQUE: CT chest without IV contrast. Multiplanar reformats wereobtained. Dose reduction techniques were used. CONTRAST: None. FINDINGS: LUNGS AND PLEURA: There is a pnglt-cw-rmqmpzer loculated left pleuraleffusion with thickening of the visceral and parietal pleura. Tiny foci ofair within the pleural fluid is likely from recent thoracentesis. Smalladjacent consolidative opacities in the left lower lobe and lingula andlinear opacities throughout the lung bases are favored to reflectatelectasis and/or scarring. However, there appear to be a few small fociof air within the left lower lobe on series 4, images 101 and 106 whichmay not be within the pleural fluid. No distinct evidence of pneumonia.There is also a small focus of chronic atelectasis in the medial rightmiddle lobe. There is smooth septal thickening and ground glass opacitiesin the lung apices and a background of mild emphysematous changes of thelung parenchyma. Trace right pleural effusion. MEDIASTINUM/AXILLAE: A right PICC line terminates in the proximal superiorvena cava. No thoracic lymphadenopathy by size criteria. Prominentthoracic lymph nodes are likely reactive. The heart is prominent size withtrace pericardial fluid. Atherosclerosis without thoracic aorticaneurysm. CORONARY ARTERY CALCIFICATION: Mild to moderate UPPER ABDOMEN: Small hiatal hernia. MUSCULOSKELETAL: No aggressive osseous lesion. IMPRESSION: 1. Fuynl-dt-kcfkrvdm loculated left empyema. Tiny foci of air within thepleural fluid is likely from recent thoracentesis. 2. There is predominantly lung base atelectasis and/or scarring. However,there are a few tiny foci of air within the left lower lobe atelectaticlung versus the adjacent empyema and could represent a necrotizingpneumonia. 3. Smooth septal thickening and groundglass opacities in the upper lungscould be seen with edema, inflammatory or infectious etiologies. 4. Trace pericardial and right pleural effusions. Bernadette Flores MD CT * BILIRUBIN,TOTAL (07/18/2023 4:50 AM ATHLETICS DIRECTOR) BILIRUBIN,TOTA L 0.3 0.0 - 1.2 mg/dL 07/18/2023 5:18 AM ATHLETICS DIRECTOR [facility] Blood BLOOD SPECIMEN / Unknown Non-Lab Venipuncture / Unknown 07/18/2023 4:50 AM ATHLETICS DIRECTOR 07/18/2023 4:58 AM ATHLETICS DIRECTOR Cathie ALDANA CHEMISTRY [facility] SENDOUT INTER[address] ZIP [address] [place] [address] * ALT (SGPT) (07/18/2023 4:50 AM ATHLETICS DIRECTOR) ALT (SGPT) 20 10 - 35 IU/L 07/18/2023 5:18 AM ATHLETICS DIRECTOR [facility] Blood BLOOD SPECIMEN / Unknown Non-Lab Venipuncture / Unknown 07/18/2023 4:50 AM ATHLETICS DIRECTOR 07/18/2023 4:58 AM ATHLETICS DIRECTOR Cathie ALDANA CHEMISTRY [facility] SENDOUT [place] [address] [address] [place] [address] * AST (SGOT) (07/18/2023 4:50 AM ATHLETICS DIRECTOR) AST (SGOT) 17 10 - 35 IU/L 07/18/2023 5:18 AM ATHLETICS DIRECTOR [facility] Blood BLOOD SPECIMEN / Unknown Non-Lab Venipuncture / Unknown 07/18/2023 4:50 AM ATHLETICS DIRECTOR 07/18/2023 4:58 AM ATHLETICS DIRECTOR Cathie ALDANA CHEMISTRY Performing Organization Address City/[facility]/ZIP Co de Phone Number [facility] SENDOUT [place] ZIP [phone] [place] [address] * ALK PHOSPHATASE (07/18/2023 4:50 AM ATHLETICS DIRECTOR) ALK PHOSPHATASE 85 35 - 104 IU/L 07/18/2023 5:18 AM ATHLETICS DIRECTOR [facility] Blood BLOOD SPECIMEN / Unknown Non-Lab Venipuncture / Unknown 07/18/2023 4:50 AM ATHLETICS DIRECTOR 07/18/2023 4:58 AM ATHLETICS DIRECTOR Cathie ALDANA CHEMISTRY Performing Organization Address City/[facility]/ZIP Co de Phone Number [facility] SENDOUT INTERNAL ZIP [phone] [place] [address] * SCAN-CARDIAC STRIP (07/17/2023 9:43 PM ATHLETICS DIRECTOR) Scanner OTHER * LAB TRACKING EVENT (07/17/2023 11:53 AM ATHLETICS DIRECTOR) Other PLEURAL FLUID SPECIMEN / Unknown Client Collect / Unknown 07/17/2023 11:53 AM ATHLETICS DIRECTOR 07/18/2023 3:31 PM ATHLETICS DIRECTOR Indiana Barclay MD LAB BILL ONLY [facility] [address] [place] [address], * PATH NON GOLF COURSE ASSISTANT CYTOLOGY (07/17/2023 11:53 AM ATHLETICS DIRECTOR) Case Report Medical Cytology Report ? Case: [id number] ? Authorizing Provider: ??Indiana Barclay MD ??Collected: ? 07/17/2023 1153 ? Ordering Location: ? [facility] ?Received: ?07/19/2023 1142 ? Pathologist: ? Svetlana Miller ? MD [place] ? Specimen: ?Pleural Fluid ? 07/19/2023 3:04 PM ATHLETICS DIRECTOR [email or web address] Final Diagnosis PLEURAL FLUID FOR CYTOLOGY: 1. Marked acute inflammation 2. Negative for malignancy 07/19/2023 3:04 PM ATHLETICS DIRECTOR [email or web address] Comment Findings are consistent with an empyema. 07/19/2023 3:04 PM ATHLETICS DIRECTOR [facility] Clinical Information The patient is a 62 y.o. female with painful cough, body aches. 07/19/2023 3:04 PM ATHLETICS DIRECTOR [facility] Gross Description A) SOURCE: Pleural fluid The specimen consists of 5 cc of yellow cloudy fluid from which the following is prepared: ? -1 DiffQuik stained slide ? -1 Papanicolaou stained ThinPrep slide ? -1 H&E stained cell block slide A2: Cell block material was placed in formalin at 1715 on 07/18/23 and fixed in formalin at least 6 hours and no more than 72 hours. 07/19/2023 3:04 PM ATHLETICS DIRECTOR [facility] Microscopic Description Specimen adequacy: Adequate for interpretation. All slides were reviewed. The microscopic appearance substantiates the diagnosis. 07/19/2023 3:04 PM ATHLETICS DIRECTOR [facility] Additional Information Cytology is screened at [facility] - [address], [place] [address] and [facility] - [address] [place] [address] and [facility] - [address] [place] [address] Interpreted at [facility] - [address], [place] [address] 07/19/2023 3:04 PM ATHLETICS DIRECTOR [facility] Tissue PLEURAL FLUID SPECIMEN / Unknown 07/17/2023 11:53 AM ATHLETICS DIRECTOR 07/19/2023 11:42 AM ATHLETICS DIRECTOR Indiana Barclay MD PATHOLOGY/CYTOLO GY [facility] [address] [place] [address], * SCAN-CARDIAC STRIP (07/17/2023 12:00 AM ATHLETICS DIRECTOR) Narrative 07/17/2023 12:00 AM ATHLETICS DIRECTOR Ordered by an unspecified provider. Other Clinical Staff OTHER * SCAN-OPERATIVE/PROCEDURE REPORT (07/17/2023 12:00 AM ATHLETICS DIRECTOR) Narrative 07/17/2023 12:00 AM ATHLETICS DIRECTOR Ordered by an unspecified provider. Other Clinical Staff OTHER * ECHO TTE COMPLETE WO CONTRAST (07/15/2023 3:34 PM ATHLETICS DIRECTOR) AORTIC VALVE MEAN PG 9 mmHg EJECTION FRACTION 69 % PEAK TR VELOCITY 3.2 m/s LVEDD 5.3 cm Anatomical Region Laterality Modality Ultrasound 07/15/2023 2:57 PM ATHLETICS DIRECTOR Narrative 07/15/2023 3:48 PM ATHLETICS DIRECTOR ECHOCARDIOGRAM MOHIT TREJO ? Accession#: ?? [id number] : ?1960 62 years Study Date: ?? 07/15/2023 2:57:57 PM Gender: F ?BP: ? 133/77 mmHg Height: 163.00 cm ?BSA: ?1.96 m? ? ? Weight: 91.00 kg ? Tech: ? MJW ? Referring MD: TITUS RUSH Site: ? [facility] Reading Location: [facility] Patient Location: Inpatient. Procedure: 2D, Color Doppler and Spectral Doppler. Indication for study: Pnuemonia, SOB, Edema Cardiac Rhythm: Unknown.Study quality: Technically limited. Imaging limitations: This study was subject to imaging limitations due to a prominent lung artifact. Final Impressions: 1. Technically limited exam. 2. Normal left ventricular size, normal wall thickness, normal global systolic function, calculated EF of 69 %. 3. Right ventricular cavity size is normal, global systolic RV function is normal. 4. Mildly enlarged left atrium. 5. Elevated estimated pulmonary pressures by tricuspid regurgitation velocity and right atrial pressure (40 mmHg plus RAP). 6. Trivial-small pericardial effusion without echocardiographic features of tamponade. Comparison There are no prior studies on this patient for comparison purposes. Chamber Sizes and Function Normal left ventricular size, normal wall thickness, normal global systolic function, calculated EF of 69 %. No definite resting regional wall motion abnormality seen. Left atrial size is mildly enlarged. Right ventricular cavity size is normal, global systolic RV function is normal. RV wall thickness is normal. The right atrium is mildly enlarged. Right atrial volume index is 31 ml/m? ? ?. Right atrial area is 21 cm? ? ?. The pulmonary artery is of normal size and origin. The sinus of Valsalva is not well visualized. The ascending aorta is not well visualized. Valves, RV Pressures and Diastolic Function The aortic valve is not well visualized , no stenosis and no regurgitation. The mitral valve is normal in structure, trace mitral regurgitation. Indeterminate pattern of LV diastolic filling. The tricuspid valve is normal in structure. Tricuspid regurgitation is mild regurgitation. The tricuspid regurgitant velocity is 3.2 m/s, the estimated right ventricular systolic pressure is 40 mmHg plus right atrial pressure. There is elevated estimated pulmonary pressure by tricuspid regurgitation velocity and right atrial pressure. The pulmonic valve is not well visualized. No pulmonary regurgitation. Masses, Effusion, Shunts There is small pericardial effusion. The inferior vena cava is not well visualized, respiratory size variation not well visualized. No left to right shunting was detected by limited color flow Doppler interrogation of the interatrial septum. MEASUREMENTS AND CALCULATIONS 2-D Measurements and LV Function: LVID (d) 5.3 cm Planimetered EF 69 % LVID (s) 3.0 cm LV FS% (2D) ? 44 % IVS (d) ??0.6 cm LVOT diameter ?? 1.9 cm LVPW (d) 0.9 cm HR ?83 bpm Ao Sinus 3.0 cm LA Vol index ?36 ml/m2 Asc Ao ?? 3.4 cm RA Vol index ?31 ml/m2 LA ? 4.2 cm RA area ? 21 cm?RV Max 4C (d) ?? 4.4 cm Diastology: Mitral ?Tissue Doppler E Peak 0.9 m/s ??e', Septum ? 0.09 m/s A Peak 1.0 m/s ??e', Lateral ?0.10 m/s E/A ?0.9 ?E/e' Average ?? 9.74 DT ? 175 msec Aortic Valve: Vmax ? 2.0 m/s ??MELVINA (V) ?? 1.99 cm? ? ? VTI ?0.39 m ?? MELVINA (I) ?? 2.08 cm? ? ? LVOT V max ? 1.4 m/s ??Max PG ?16 mmHg LVOT VTI ? 0.29 m ?? Mean PG ?? 9 mmHg SV ? 82 ml ?Dim Index 0.74 SV index ? 42 ml/m? ? ? CO ?6.8 l/min AV Ejection Time 0.30 sec CI ?3.5 l/min/m? ? ? AV Flow Rate ? 271 ml/s Mitral Valve: MVA ?4.3 cm? ? ? MV P 1/2 51 msec Tricuspid Valve and estimated PA pressures: TR Vmax 3.2 m/s TAPSE 3.2 cm TR maxG 40 mmHg . This study was interpreted by an [facility] accredited facility. ??Final ?? Procedure Note Frank Garcia MD - 07/15/2023 ECHOCARDIOGRAM MOHIT TREJO : 1960 62 years Study Date: 07/15/2023 2:57:57 PM Gender: F BP: 133/77 mmHg Height: 163.00 cm BSA: 1.96 m? ? ? Weight: 91.00 kg Tech: AVE Referring MD: TITUS RUSH Site: [facility] Reading Location: [facility] Patient Location: Inpatient. Procedure: 2D, Color Doppler and Spectral Doppler. Indication for study: Pnuemonia, SOB, Edema Cardiac Rhythm: Unknown.Study quality: Technically limited. Imaging limitations: This study was subject to imaging limitations due toa prominent lung artifact. Final Impressions: 1. Technically limited exam. 2. Normal left ventricular size, normal wall thickness, normal globalsystolic function, calculated EF of 69 %. 3. Right ventricular cavity size is normal, global systolic RV functionis normal. 4. Mildly enlarged left atrium. 5. Elevated estimated pulmonary pressures by tricuspid regurgitationvelocity and right atrial pressure (40 mmHg plus RAP). 6. Trivial-small pericardial effusion without echocardiographic featuresof tamponade. Comparison There are no prior studies on this patient for comparison purposes. Chamber Sizes and Function Normal left ventricular size, normal wall thickness, normal globalsystolic function, calculated EF of 69 %. No definite resting regionalwall motion abnormality seen. Left atrial size is mildly enlarged. Rightventricular cavity size is normal, global systolic RV function is normal.RV wall thickness is normal. The right atrium is mildly enlarged. Rightatrial volume index is 31 ml/m? ? ?. Right atrial area is 21 cm? ? ?. Thepulmonary artery is of normal size and origin. The sinus of Valsalva isnot well visualized. The ascending aorta is not well visualized. Valves, RV Pressures and Diastolic Function The aortic valve is not well visualized , no stenosis and noregurgitation. The mitral valve is normal in structure, trace mitralregurgitation. Indeterminate pattern of LV diastolic filling. Thetricuspid valve is normal in structure. Tricuspid regurgitation is mildregurgitation. The tricuspid regurgitant velocity is 3.2 m/s, theestimated right ventricular systolic pressure is 40 mmHg plus right atrialpressure. There is elevated estimated pulmonary pressure by tricuspidregurgitation velocity and right atrial pressure. The pulmonic valve isnot well visualized. No pulmonary regurgitation. Masses, Effusion, Shunts There is small pericardial effusion. The inferior vena cava is not wellvisualized, respiratory size variation not well visualized. No left toright shunting was detected by limited color flow Doppler interrogation ofthe interatrial septum. MEASUREMENTS AND CALCULATIONS 2-D Measurements and LV Function: LVID (d) 5.3 cm Planimetered EF 69 % LVID (s) 3.0 cm LV FS% (2D) 44 % IVS (d) 0.6 cm LVOT diameter 1.9 cm LVPW (d) 0.9 cm HR 83 bpm Ao Sinus 3.0 cm LA Vol index 36 ml/m2 Asc Ao 3.4 cm RA Vol index 31 ml/m2 LA 4.2 cm RA area 21 cm? ? ? RV Max 4C (d) 4.4 cm Diastology: Mitral Tissue Doppler E Peak 0.9 m/s e', Septum 0.09 m/s A Peak 1.0 m/s e', Lateral 0.10 m/s E/A 0.9 E/e' Average 9.74 DT 175 msec Aortic Valve: Vmax 2.0 m/s MELVINA (V) 1.99 cm? ? ? VTI 0.39 m MELVINA (I) 2.08 cm? ? ? LVOT V max 1.4 m/s Max PG 16 mmHg LVOT VTI 0.29 m Mean PG 9 mmHg SV 82 ml Dim Index 0.74 SV index 42 ml/m? ? ? CO 6.8 l/min AV Ejection Time 0.30 sec CI 3.5 l/min/m? ? ? AV Flow Rate 271 ml/s Mitral Valve: MVA 4.3 cm? ? ? MV P 1/2 51 msec Tricuspid Valve and estimated PA pressures: TR Vmax 3.2 m/s TAPSE 3.2 cm TR maxG 40 mmHg . This study was interpreted by an [facility] accredited facility. Final Titus Rush MD ECHO ORD from Last 3 Months Advance Directives Latest Code Status on File Code Status Date Activated Date Inactivated Comments Full Code 07/17/2023 9:03 PM 07/27/2023 2:15 PM Question Answer Comments Code Status Discussion: Reviewed Preferences Care Teams Border Police Relationship Specialty Start Date End Date Arnulfo Alvarenga MD PCP - General Family Practice 01/09/13 Francine Gerard PsyD, LP [address] [place] [address] Mental Health Provider Psychology 11/14/19
--- OUTSIDE RECORDS SUMMARY | 2023-09-01 10:40 | XMS_ITS | Encounter Summary ---
Author Name Unknown Organization [place] Address [address] [facility] [place] [address] Care Team Providers Care Knot Borer Name Role Phone Sánchez Judge Primary Care Provider [phone] Arnulfo Alvarenga MD Primary Care Provider [phone] Encounter Details Date Type Department Care Team (Late st Contact Info) Description 10/04/2013 Office Visit-[facility] Maksim Monaco MD Social History Tobacco Use Types Packs/Day Years Used Date Smoking Tobacco: Never Assessed Sex and Gender Information Value Date Recorded Sex Assigned at Not on file Gender Identity Not on file Sexual Orientation Not on file documented as of this encounter Progress Notes * Maksim Monaco - 10/04/2013 12:00 AM CST Bull Wheel Worker: Maksim Monaco Status: Unsigned Encounter: 2013-10-04 00:00:00.000 Type: Neurology Letter [facility] [address] [place] [address] October 04, 2013 RE: Mohit Trejo : 1960 L[place]: 10/04/2013 [facility] [address] [place] [address] RE: MOHIT TREJO : 1960 [place]: 10/04/2013 REFERRING: Sánchez Judge MD [facility] [address] [place] [address] INDICATIONS: RIGHT AND LEFT UPPER EXTREMITY EMG EXAMINATION RIGHT UPPER EXTREMITY CONDUCTION VELOCITIES STIM. LATENCY MS AMPLITUDE DISTANCE CM NCV NORMAL Right Median Nerve Above Elbow 7.4 8 mV Record / APB 23 AE-W 57 M/sec >50 F-Wave : Wrist 3.3 8 mV Right Ulnar Nerve Above Elbow 6.4 11 mV Record / ADM 26 AE-W 62 M/sec >50 F-Wave: Below Elbow - - mV - BE-W - M/sec >50 Wrist 2.3 11 mV Right Sensory Median Nerve 3.2 30 micro Right Sensory Ulnar 2.5 25 micro NEEDLE ELECTRODE EXAMINATION (EMG) MUSCLE POS. POT. FIBS. FASCIC. MOTOR UNIT ACTION POTENTIALS Right 1st Dorsal Interosseous 0 0 0 Normal Right Pronator Teres 0 0 0 Normal Right Extensor Digitorum Communis 0 0 0 Normal Right Biceps 0 0 0 Several increased size Right Deltoid 0 0 0 Several increased size Right Cervical Paraspinals 0 0 0 XXX CLINICAL NOTE: Right upper extremity testing is requested for evaluation of right hand pain and paresthesias. The patient also occasionally has pain more proximal in the right arm. Right carpal tunnel syndrome is a clinical concern. REPORT: Right median motor and sensory conduction velocity studies are within normal limits. Right ulnar motor and sensory conduction velocity studies are within normal limits. Right upper extremity needle electrode examination is notable for some chronic neurogenic changes affecting the right biceps and deltoid muscles. No active denervation is appreciated. Study of the cervical paraspinal muscles reveals no abnormalities. IMPRESSION: 1. Chronic or old changes of right C5/C6 radiculopathy. 2. No electrical changes of right carpal tunnel syndrome. Maksim Monaco MD [facility] Department of Neurology Maksim Monaco MD Department of Neurology [facility] CLH:[address] documented in this encounter Plan of Treatment Not on file documented as of this encounter Visit Diagnoses Not on filedocumented in this encounter Care Teams Knot Borer Relationship Specialty Start Date End Date Sánchez Judge [facility] [address] [place] [address] PCP - General 08/02/13 10/08/13 Arnulfo Alvarenga MD [facility] [address] [place] [address] PCP - General Family Practice 10/09/13 documented as of this encounter
== END 2023-08-29 11:13 | disposition home or self-care (01) ==
LOC: NFLDREF 09-01 10:34
PROVIDERS: PCP Family Medicine; Referring Provider Family Medicine; Visit Provider Family Medicine
DX: E78.2 Mixed hyperlipidemia (principal)
CPT/HCPCS: 80053; 80061

== ENCOUNTER 2023-11-07 07:56 | Outpatient (CLI) | payer MEDICARE, MEDICAID, SELFPAY ==
--- NOTE | 2023-11-07 09:16 | W.ANESCHARGE ---
Anesthesia Charges Start Date/Time Anesthesia Start Date: 11/07/23 Anesthesia Start Time: 08:20 Stop Date/Time Anesthesia Stop Date: 11/07/23 Anesthesia Stop Time: 09:14
--- NOTE | 2023-11-07 11:09 | W.ANESCHARGE ---
Anesthesia Charges Start Date/Time Anesthesia Start Date: 11/07/23 Anesthesia Start Time: 08:20 Stop Date/Time Anesthesia Stop Date: 11/07/23 Anesthesia Stop Time: 09:14
== END 2023-11-07 07:57 | disposition home or self-care (01) ==
LOC: OP CLINIC 07:56
PROVIDERS: PCP Family Medicine; Visit Provider Surgery
DX: Z12.11 Encounter for screening for malignant neoplasm of colon (principal); K63.5 Polyp of colon; K62.1 Rectal polyp; D17.5 Benign lipomatous neoplasm of intra-abdominal organs
CPT/HCPCS: 00811; 45380; 88305; J2704

== ENCOUNTER 2023-12-15 11:24 | Outpatient (CLI) | payer MEDICARE, MEDICAID, SELFPAY ==
--- OUTSIDE RECORDS SUMMARY | 2023-12-15 11:27 | XMS_ITS | Referral Summary ---
Author Name Unknown Organization [place] Address [address] [facility] [place] [address] Care Team Providers Care Pilot Safety Inspector Name Role Phone Arnulfo Alvarenga MD Primary Care Provider [phone] Active Problems Problem Noted Date Diagnosed Date [...] lb 6.4 oz) 08/03/2023 1:25 P M MEDICAL PSYCHOTHERAPIST Height 157 cm (5' 1.81) 08/03/2023 1:25 PM MEDICAL PSYCHOTHERAPIST Body Mass Index 34.67 08/03/2023 1:25 PM MEDICAL PSYCHOTHERAPIST Plan of Treatment Not on file Care Teams Pilot Safety Inspector Relationship Specialty Start Date End Date Arnulfo Alvarenga MD PCP - General Family Practice 10/09/13
--- OUTSIDE RECORDS SUMMARY | 2023-12-15 11:27 | XMS_ITS | Clinical Summary ---
Author Name Unknown Organization [facility] Address [place], [place] [address] Care Team Providers Care Podiatric Aide Name Role Phone Arnulfo Alvarenga MD Primary Care Provider [phone] Francine GerardyD, LP Unavailable [phone] Allergies Active Allergy Reactions Criticality Noted Date [...] pressure: epap 5cm/H2O, PS 3-15 1 Device 06/07/2016 Active VENTOLIN HFA 90 mcg/actuation inhaler Inhale 1 Puff by mouth every 4 hours if needed for Shortness Of Breath. 09/22/2016 Active buPROPion (WELLBUTRIN XL) 300 mg [...] Take 50 mg by mouth at bedtime. Active albuterol-ipratropi um (DUONEB) (2.5-0.5 mg) in 3 mL NEBULIZATION solution Inhale 1 Neb via a nebulizer every 6 hours. Active simvastatin (Zocor) 20 mg tablet Take 20 mg by mouth at bedtime. Active fluticasone hyf-nntrfaqdlmpp-on lanterol (Trelegy Ellipta) 100-62.5-25 mcg inhaler Inhale 1 Puff by mouth once daily. Active FERROUS SULFATE 324 OR 325 MG, 65 MG IRON, TABLET Take 325 mg by mouth once daily. Active cholecalciferol (Vitamin D) 1,000 unit tablet Take 1,000 units by mouth once daily. Active torsemide (DEMADEX) 20 mg tablet Take 20 mg by mouth once daily. Active Lactobacillus acidophilus (PROBIOTIC ACIDOPHILUS ORAL) Take 1 Capsule by mouth once daily. Active Uscop-1-YZF-EPA-Fis h Oil (Fish OiL) 1,000 mg (120 mg-180 mg) cap Take 1 Capsule by mouth once daily. Active metoprolol succinate SR (TOPROL XL) 25 mg as half tablet Take 25 mg by mouth once daily. Active Biotin 1 mg tablet Take 1 Tablet by mouth once daily. Active acetaminophen (TYLENOL EXTRA STRGTH) 500 mg tabletIndications:A cute postoperative pain Take 2 Tablets (1,000 mg) by mouth every 6 hours. Max acetaminophen dose: 4000mg in 24 hrs. 100 Tablet 07/25/2023 Active ibuprofen (ADVIL; MOTRIN) 600 mg tabletIndications:A cute postoperative pain Take 1 Tablet (600 mg) by mouth every 6 hours. Maximum of 3200 mg in 24 hours. 100 Tablet 07/25/2023 Active sennosides (SENNA) 8.6 mg tabletIndications:C onstipation, unspecified constipation type Take 1-2 Tablets (8.6-17.2 mg) by mouth 2 times daily if needed for Constipation. 20 Tablet 07/25/2023 Active oxygen-air delivery systems (HOME OXYGEN)Indications: Pneumonia of left lower lobe due to infectious organism Oxygen for home use. Liters per minute: 2 per nasal cannula. Frequency of use: Continuous with portability.;. Length of need: 3 Months. 1 Each 07/26/2023 Active Active Problems Problem Noted Date Diagnosed Date [...] Encounters Date Type Department Care Team Description 11/23/2023 9:30 AM CDT Phone Office Visit [address] [facility] [address] [place] [address] Francine Gerard PsyD, LP Trmt Plan; Individual Therapy; Phone Visit 11/07/2023 Lab Requisition [facility] [phone] Indiana Barclay MD 2023 9:30 AM CDT Phone Office Visit [address] [facility] [address] [place] [address] Francine Gerard PsyD, LP Individual Therapy; Phone Visit 09/28/2023 9:30 AM A/C TECH Phone Office Visit [address] [place] [address] Francine Greard, PsKathie, LP Individual Therapy; Phone Visit from Last 3 Months Immunizations Name Administration [...] PHQ-2 Answer Date Recorded PHQ-2 TOTAL SCORE 1 2023 Social Connections Answer Date Recorded Frequency of [...] Comments Blood Pressure 143/88 07/27/2023 8:45 AM A/C TECH Pulse 84 07/27/2023 8:54 AM A/C TECH Temperature 36.7 ??C (98 ??F) 07/27/2023 8:54 AM A/C TECH Respiratory Rate 16 07/27/2023 8:54 AM A/C TECH Oxygen Saturation 94% 07/27/2023 8:45 AM A/C TECH Inhaled Oxygen Concentration - - Weight 91 kg (200 lb 9.6 oz) 07/27/2023 5:43 AM A/C TECH Height 162.6 cm (5' 4) 07/17/2023 8:29 PM A/C TECH Body Mass Index 34.43 07/17/2023 8:29 PM A/C TECH Plan of Treatment Upcoming Encounters Date Type Department Care Team (Late st Contact Info) Description 12/23/2023 9:30 AM CDT Phone Office Visit [facility] [address] [place] [address] Rajani, Francine A, PsyD, LP [address] [place] [address] 01/27/2024 9:30 AM CDT Phone Office Visit [facility] [address] [place] [address] Rajani, Francine A, PsyD, LP [address] [place] [address] 03/09/2024 8:30 AM CDT Phone Office Visit [facility] [address] [place] [address] Rajani, Francine A, PsyD, LP [address] [place] [address] 04/13/2024 9:30 AM CDT Phone Office Visit [facility] [address] [place] [address] Rajani, Francine A, PsyD, LP [address] [place] [address] 05/18/2024 9:30 AM CDT Phone Office Visit [facility] [address] [place] [address] Rajani, Francine A, PsyD, LP [address] [place] [address] 06/20/2024 9:30 AM CDT Phone Office Visit [facility] [address] [place] [address] Rajani, Francine A, PsyD, LP [address] [place] [address] 07/18/2024 9:30 AM A/C TECH Phone Office Visit [facility] [address] [place], [place] [id number] Rajani, Francine A, PsyD, LP [address] [place], [place] [id number] 08/10/2024 9:30 AM A/C TECH Phone Office Visit [facility] [address] [place], [place] [id number] Rajani, Francine A, PsyD, LP [address] [place], [place] [id number] Health Maintenance Due Date Last Done Comments Pneumococcal series for age 6-64 (1 of 2 - PCV) 11/01/1965 Tdap 11/01/1970 HIV for age 15-65 11/01/1974 Colonoscopy through age 75 11/01/2004 Zoster (shingles) series for age 50+ (1 of 2) 11/01/2009 Mammogram for age 45-75 06/22/2013 06/22/20 12 (Completed outside of [facility]) Lipids for age 45-75 07/12/2017 07/12/2012 (Completed outside of [facility]) BMI (ht and wt on same day) for age 18+ 10/21/2017 10/21/2016, 02/05/2016 Pap test for age 21-65 09/16/2018 6, 09/16/2015, 07/24/2012 (Completed outside of [facility]) Tetanus booster 12/21/2020 12/21/2010 (Comp leted outside of [facility]) COVID-19 vaccine series (2022- season) 2023 12/23/2021, 08/06/2021, 11/06/2020, Additional history exists Influenza for age 50-64 04/22/2024 05/13/2016 Depression screening for age 12+ 11/01/2024 2023, 06/13/2023, 05/27/2023, Additional history exists Hepatitis C screening for ag e 18-79 Completed 08/27/2013, 08/27/2013 Procedures Procedure Name Priority Date/Time Associated Diagnosis Comments LAB TRACKING EVENT Routine 11/07/2023 8: 54 AM CDT PATH TISSUE EXAM Routine 11/07/2023 8:54 AM CDT DOPE FIRER THIN PREP PAP SCREEN IMAGED Routine 09/16/2015 1:23 PM A/C TECH HCV GENOTYPE AFTER AMPLIFICATION BLD Routine 08/27/2013 3:59 PM A/C TECH Hepatitis C from Last 3 Months or Most Recently Relevant to Health Maintenance Results * LAB TRACKING EVENT (11/07/2023 8:54 AM CDT) Other (Other) Client Collect / Unknown 11/07/2023 8:54 AM CDT 11/07/2023 8:55 PM CDT Indiana Barclay MD LAB BILL ONLY [facility] [address] [place] [address], * PATH TISSUE EXAM (11/07/2023 8:54 AM CDT) Case Report Pathology Report ?Case: [id number] ? Authorizing Provider: ??Indiana Barclay MD ??Collected: ? 11/07/2023 0854 ? Ordering Location: ? [facility] ?Received: ?11/07/20235 ? Pathologist: ? Jase Alamo, ? MD ? Specimens: ?? A) - Cecal Polyp ? B) - Hepatic Flexure Biopsy, Hepatic Flexure, Lipoma ? C) - Rectal Polyp ? 11/08/2023 4:54 PM CDT [facility] Final Diagnosis A) COLON, CECUM, BIOPSY: 1. Normal colonic mucosa; a lymphoid aggregate is present (clinically,1 polyp) 2. Negative for serrated change, dysplasia, and malignancy B) COLON, HEPATIC FLEXURE, POLYPECTOMY: 1. Abundant submucosal adipose tissue compatible with lipoma 2. Overlying colonic mucosa with no diagnostic abnormalities C) RECTUM, POLYPECTOMY: Hyperplastic polyp 11/08/2023 4:54 PM CDT [facility] Clinical Information Screening colonoscopy 11/08/2023 4:54 PM CDT [facility] Gross Description A) Received in formalin is a whitley mucosal fragment measuring 4 mm in greatest dimension, which is entirely submitted in one cassette. It is labeled with the patient's name and designated cecum. B) Received in formalin is a whitley mucosal fragment measuring 5 mm in greatest dimension, which is entirely submitted in one cassette. It is labeled with the patient's name and designated hepatic flexure, lipoma. C) Received in formalin is a whitley mucosal fragment measuring 3 mm in greatest dimension, which is entirely submitted in one cassette. It is labeled with the patient's name and designated rectum. Frederick Ny Jeison 11/07/2023 9:27 PM 11/08/2023 4:54 PM CDT [facility] Microscopic Description The final diagnosis is based on microscopic examination of appropriate sections of all specimens. 11/08/2023 4:54 PM CDT [facility] Additional Information Interpreted at [facility] - [address] [place] [address] 11/08/2023 4:54 PM CDT [facility] Other (Cecal Polyp) 11/07/2023 8:54 AM CDT 11/07/2023 9:25 PM CDT Specimen (specimen) (Hepatic Flexure Biopsy) 11/07/2023 8:54 AM CDT 11/07/2023 9:25 PM CDT Specimen (specimen) (Rectal Polyp ) 11/07/2023 8:54 AM CDT 11/07/2023 9:25 PM CDT Indiana Barclay MD PATHOLOGY/CYTOLO [facility]Y [facility] [address] * DOPE FIRER THIN PREP PAP SCREEN IMAGED (09/16/2015 1:23 PM A/C TECH) DOPE FIRER CYTOLOGY See Anatomic Pathology case 09/22/2015 9:00 PM A/C TECH [facility] Specimen (specimen) (Cervical) Client Collect / Unknown 09/16/2015 1:23 PM A/C TECH 09/17/2015 8:42 PM A/C TECH Kassy Guzman MD PATHOLOGY/CYTOLOGY [facility] [address] [place] [address], [place] * HCV GENOTYPE AFTER AMPLIFICATION BLD (08/27/2013 3:59 PM A/C TECH) HEPATITIS C GENOTYPING 1b (Undetecte d) [facility] Comment:Testing was done usi ng the Guillermo HCV Genotype II Assay. Blood specimen (specimen) BLOOD SPECIMEN / Unknown 08/27/2013 3:59 PM A/C TECH 08/27/2013 3:26 PM A/C TECH Narrative [facility] - 08/29/2013 3:25 PM A/C TECH Test Performed by: [facility] Dpt of Lab Med and Pathology [address] [place], [place] [address] Janitorial Manager: Miguelito Garcia III M.D. Deep Deluca MD SEND OUTS [facility] [address] [place] [address] from Last 3 Months or Most Recently Relevant to Health Maintenance Advance Directives * Full Code (Latest Code Status on File) Date Activated Date Inactivated Comments 07/17/2023 9:03 PM 07/27/2023 2:15 PM Question Answer Comments Code Status Discussion: Reviewed Preferences Care Teams Podiatric Aide Relationship Specialty Start Date End Date Arnulfo Alvarenga MD PCP - General Family Practice 01/09/13 Francine Gerard, Ita, LP [address] [facility] [address] [place] [address] Mental Health Provider Psychology 11/14/19
--- OUTSIDE RECORDS SUMMARY | 2023-12-15 11:27 | XMS_ITS | Clinical Summary ---
Author Name Unknown Organization [place] Address [address] [place] [address] Care Team Providers Care Social Work Instructor Name Role Phone Arnulfo Alvarenga MD Primary Care Provider [phone] Active Problems Problem Noted Date Diagnosed Date [...] lb 6.4 oz) 08/03/2023 1:25 P M LEAD OXIDE MILL TENDER Height 157 cm (5' 1.81) 08/03/2023 1:25 PM LEAD OXIDE MILL TENDER Body Mass Index 34.67 08/03/2023 1:25 PM LEAD OXIDE MILL TENDER Plan of Treatment Health Maintenance Due Date Last Done Comments ADVANCE CARE PLANNING 1960 ANNUAL REVIEW OF HM ORDERS 1960 CT COLONOGRAPHY 1960 FIT 1960 FLEX SIG 1960 GLUCOSE 1960 MAMMO SCREENING 1959 sDNA (Cologuard) 1960 COLONOSCOPY 11/01/1969 COLORECTAL CANCER SCREENING 11/01/1969 HIV SCREENING 11/01/1974 HEPATITIS C SCREENING 11/01/1977 MEDICARE ANNUAL WELLNESS VISIT 11/01/1977 PAP 11/01/1980 LIPID 1999 DTAP/TDAP/TD IMMUNIZATION (1 - Tdap) 04/11/2013 04/10/2013, 01/14/2009 RSV VACCINE ( & 60+) (1 - 1-dose 60+ series) 2019 COVID-19 Vaccine (2022- season) 2023 12/23/2021, 08/06/2021, 11/06/2020, Additional [...] on patient's age to complete this topic Care Teams Social Work Instructor Relationship Specialty Start Date End Date Arnulfo Alvarenga MD PCP - General Family Practice 10/09/13
--- OUTSIDE RECORDS SUMMARY | 2023-12-15 11:27 | XMS_ITS | Encounter Summary ---
Author Name Unknown Organization [place] Address [address] [facility] [place] [address] Care Team Providers Care Interstate Bus Dispatcher Name Role Phone Sánchez Judge Primary Care Provider [phone] Arnulfo Alvarenga MD Primary Care Provider [phone] Encounter Details Date Type Department Care Team [...] Maksim Monaco - 10/04/2013 12:00 AM CST Rail Transit Operator: Maksim Monaco Status: Unsigned Encounter: 2013-10-04 00:00:00.000 Type: Neurology Letter [facility] [address] [place] [address] October 04, 2013 RE: Mohit Trejo : 1960 [place]: 10/04/2013 [facility] [address] [place] [address] RE: MOHIT TREJO : 1960 [place]: 10/04/2013 REFERRING: Sánchez Judge MD [facility] [address] [place] [address] INDICATIONS: RIGHT AND LEFT UPPER EXTREMITY EMG [...] right carpal tunnel syndrome. Maksim Monaco MD [facility] Department of Neurology Maksim Monaco MD Department of Neurology [facility] CL[facility]:[address]IG[address] documented in this encounter Plan of Treatment Not on file documented as of this encounter Visit Diagnoses Not on filedocumented in this encounter Care Teams Interstate Bus Dispatcher Relationship Specialty Start Date End Date Sánchez Judge [facility] [address] [place] [address] PCP - General 08/02/13 10/08/13 Arnulfo Alvarenga MD [facility] [address] [place] [address] PCP - General Family Practice 10/09/13 documented as of this encounter
== END 2023-12-15 11:25 | disposition home or self-care (01) ==
PROVIDERS: PCP Family Medicine; Visit Provider Dermatology
DX: L40.9 Psoriasis, unspecified (principal); Z79.899 Other long term (current) drug therapy
CPT/HCPCS: 80053; 83735

== ENCOUNTER 2023-12-20 15:16 | Outpatient (CLI) | payer MEDICARE, MEDICAID, SELFPAY ==
--- OUTSIDE RECORDS SUMMARY | 2023-12-20 15:20 | XMS_ITS | Referral Summary ---
Author Name Unknown Organization [place] Address [address] [facility] [place] [address] Care Team Providers Care Asphalt Mixing Machine Operator Name Role Phone Arnulfo Alvarenga MD Primary Care Provider [phone] Active Problems Problem Noted Date Diagnosed Date [...] lb 6.4 oz) 08/03/2023 1:25 P M EGG TESTER Height 157 cm (5' 1.81) 08/03/2023 1:25 PM EGG TESTER Body Mass Index 34.67 08/03/2023 1:25 PM EGG TESTER Plan of Treatment Not on file Care Teams Asphalt Mixing Machine Operator Relationship Specialty Start Date End Date Arnulfo Alvarenga MD PCP - General Family Practice 10/09/13
--- OUTSIDE RECORDS SUMMARY | 2023-12-20 15:20 | XMS_ITS | Encounter Summary ---
Author Name Unknown Organization [place] Address [address] [facility] [place] [address] Care Team Providers Care Rn Nicu Name Role Phone Sánchez Judge Primary Care Provider [phone] Arnulfo Alvarenga MD Primary Care Provider [phone] Encounter Details Date Type Department Care Team [...] Maksim Monaco - 10/04/2013 12:00 AM CST President And Chief Operating Officer: Maksim Monaco Status: Unsigned Encounter: 2013-10-04 00:00:00.000 Type: Neurology Letter [facility] [address] [place] [id number] October 04, 2013 RE: Mohit Trejo : 1960 [place]: 10/04/2013 [facility] [address] [place] [id number] RE: MOHIT TRJEO : 1960 [place]: 10/04/2013 REFERRING: Sánchez Judge MD [facility] [address] [place] [id number] INDICATIONS: RIGHT AND LEFT UPPER EXTREMITY EMG [...] right carpal tunnel syndrome. Maksim Monaco MD [facility] Department of Neurology Maksim Monaco MD Department of Neurology [facility] CL[facility]:11 MENT EXAMINER documented in this encounter Plan of Treatment Not on file documented as of this encounter Visit Diagnoses Not on filedocumented in this encounter Care Teams Rn Nicu Relationship Specialty Start Date End Date Sánchez Judge [facility] [address] [place] [address] PCP - General 08/02/13 10/08/13 Arnulfo Alvarenga MD [facility] [address] [place] [address] PCP - General Family Practice 10/09/13 documented as of this encounter
--- OUTSIDE RECORDS SUMMARY | 2023-12-20 15:20 | XMS_ITS | Clinical Summary ---
Author Name Unknown Organization [email or web address] [facility] Address [place], [place] [address] Care Team Providers Care Director Outpatient Services Name Role Phone Arnulfo Alvarenga MD Primary Care Provider [phone] Francine GerardyD, LP Unavailable [phone] Allergies Active Allergy Reactions Criticality Noted Date [...] mg by mouth at bedtime. Active fluticasone bxf-ykkffayeoilw-pe lanterol (Trelegy Ellipta) 100-62.5-25 mcg inhaler Inhale [...] 1 Capsule by mouth once daily. Active Sitzk-1-EMZ-EPA-Fis h Oil (Fish OiL) 1,000 mg (120 [...] 11/23/2023 9:30 AM CDT Phone Office Visit [address] [facility] [address] [place] [address] Francine Gerard PsyD, LP Trmt Plan; Individual Therapy; Phone Visit 11/07/2023 Lab Requisition [facility] [phone] Indiana Barclay MD 2023 9:30 AM CDT Phone Office Visit [address] [facility] [address] [place] [address] Francine Gerard PsyD, LP Individual Therapy; Phone Visit 09/28/2023 9:30 AM KITCHEN FOOD ASSEMBLER Phone Office Visit [address] [place] [address] [place] [address] Francine Gerard, PsKathie, LP Individual Therapy; Phone Visit from [...] Comments Blood Pressure 143/88 07/27/2023 8:45 AM KITCHEN FOOD ASSEMBLER Pulse 84 07/27/2023 8:54 AM KITCHEN FOOD ASSEMBLER Temperature 36.7 ??C (98 ??F) 07/27/2023 8:54 AM KITCHEN FOOD ASSEMBLER Respiratory Rate 16 07/27/2023 8:54 AM KITCHEN FOOD ASSEMBLER Oxygen Saturation 94% 07/27/2023 8:45 AM KITCHEN FOOD ASSEMBLER Inhaled Oxygen Concentration - - Weight 91 kg (200 lb 9.6 oz) 07/27/2023 5:43 AM KITCHEN FOOD ASSEMBLER Height 162.6 cm (5' 4) 07/17/2023 8:29 PM KITCHEN FOOD ASSEMBLER Body Mass Index 34.43 07/17/2023 8:29 PM KITCHEN FOOD ASSEMBLER Plan of Treatment Upcoming Encounters Date Type Department Care Team (Late st Contact Info) Description 12/23/2023 9:30 AM CDT Phone Office Visit [facility] [address] [place] [address] [place] [address] Rajani, Francine A, PsyD, LP [address] [place] [address] [place] [address] 01/27/2024 9:30 AM CDT Phone Office Visit [facility] [address] [place] [address] [place] [address] Rajani, Francine A, PsyD, LP [address] [address] [place] [address] 03/09/2024 8:30 AM CDT Phone Office Visit [facility] [address] [place] [address] [place] [address] Rajani, Francine A, PsyD, LP [address] [place] [address] [place] [address] 04/13/2024 9:30 AM CDT Phone Office Visit [facility] [address] [place] [address] [place] [address] Rajani, Francine A, PsyD, LP [address] [place] [address] [place] [address] 05/18/2024 9:30 AM CDT Phone Office Visit [facility] [address] [place] [address] [place] [address] Rajani, Francine A, PsyD, LP [address] [place] [address] [place] [address] 06/20/2024 9:30 AM CDT Phone Office Visit [facility] [address] [place] [address] [place] [address] Rajani, Francine A, PsyD, LP [address] [address] [place] [address] 07/18/2024 9:30 AM KITCHEN FOOD ASSEMBLER Phone Office Visit [facility] [address] [place] [address] [place], [place] [phone] Rajani, Francine A, PsyD, LP [address] [place] [address] [place], [place] [phone] 08/10/2024 9:30 AM KITCHEN FOOD ASSEMBLER Phone Office Visit [facility] [address] [place] [address] [place], [place] [phone] Rajani, Francine A, PsyD, LP [address] [place] [place], [place] [phone] Health Maintenance Due Date Last Done Comments Pneumococcal series for age 6-64 (1 of 2 - PCV) 11/01/1965 Tdap 11/01/1970 HIV for age 15-65 11/01/1974 Colonoscopy through age 75 11/01/2004 Zoster (shingles) series for age 50+ (1 of 2) 11/01/2009 Mammogram for age 45-75 06/22/2013 06/22/20 12 (Completed outside of [facility]) Lipids for age 45-75 07/12/2017 07/12/2012 (Completed outside of [facility]) BMI (ht and wt on same day) for age 18+ 10/21/2017 10/21/2016, 02/05/2016 Pap test for age 21-65 09/16/2018 6, 09/16/2015, 07/24/2012 (Completed outside of [facility]) Tetanus booster 12/21/2020 12/21/2010 (Comp leted outside of [facility]) COVID-19 vaccine series (2022- season) 2023 12/23/2021, [...] TISSUE EXAM Routine 11/07/2023 8:54 AM CDT MEDICAL SUPERINTENDENT THIN PREP PAP SCREEN IMAGED Routine 09/16/2015 1:23 PM KITCHEN FOOD ASSEMBLER HCV GENOTYPE AFTER AMPLIFICATION BLD Routine 08/27/2013 3:59 PM KITCHEN FOOD ASSEMBLER Hepatitis C from Last 3 Months or Most Recently Relevant to Health Maintenance Results * LAB TRACKING EVENT (11/07/2023 8:54 AM CDT) Other (Other) Client Collect / Unknown 11/07/2023 8:54 AM CDT 11/07/2023 8:55 PM CDT Indiana Barclay MD LAB BILL ONLY [facility] [address] [place] [address], * PATH TISSUE EXAM (11/07/2023 8:54 AM CDT) Case Report Pathology Report ?Case: [id number] ? Authorizing Provider: ??Indiana Barclay MD ??Collected: ? 11/07/2023 0854 ? Ordering Location: ? [facility] ?Received: ?11/07/20235 ? Pathologist: ? Jase Alamo, ? MD ? Specimens: ?? A) - Cecal Polyp ? B) - Hepatic Flexure Biopsy, Hepatic Flexure, Lipoma ? C) - Rectal Polyp ? 11/08/2023 4:54 PM CDT [facility] Final Diagnosis A) COLON, CECUM, BIOPSY: 1. Normal colonic mucosa; a lymphoid aggregate is present (clinically,1 polyp) 2. Negative for serrated change, dysplasia, and malignancy B) COLON, HEPATIC FLEXURE, POLYPECTOMY: 1. Abundant submucosal adipose tissue compatible with lipoma 2. Overlying colonic mucosa with no diagnostic abnormalities C) RECTUM, POLYPECTOMY: Hyperplastic polyp 11/08/2023 4:54 PM CDT [facility] Clinical Information Screening colonoscopy 11/08/2023 4:54 PM CDT [facility] Gross Description A) Received in formalin [...] 11/07/2023 9:27 PM 11/08/2023 4:54 PM CDT [facility] Microscopic Description The final diagnosis is based on microscopic examination of appropriate sections of all specimens. 11/08/2023 4:54 PM CDT [facility] Additional Information Interpreted at [facility] - [address] [place] [address] 11/08/2023 4:54 PM CDT [facility] Other (Cecal Polyp) 11/07/2023 8:54 AM CDT 11/07/2023 9:25 PM CDT Specimen (specimen) (Hepatic Flexure Biopsy) 11/07/2023 8:54 AM CDT 11/07/2023 9:25 PM CDT Specimen (specimen) (Rectal Polyp ) 11/07/2023 8:54 AM CDT 11/07/2023 9:25 PM CDT Indiana Barclay MD PATHOLOGY/CYTOLO [facility] [address] * MEDICAL SUPERINTENDENT THIN PREP PAP SCREEN IMAGED (09/16/2015 1:23 PM KITCHEN FOOD ASSEMBLER) MEDICAL SUPERINTENDENT CYTOLOGY See Anatomic Pathology case 09/22/2015 9:00 PM KITCHEN FOOD ASSEMBLER [facility] Specimen (specimen) (Cervical) Client Collect / Unknown 09/16/2015 1:23 PM KITCHEN FOOD ASSEMBLER 09/17/2015 8:42 PM KITCHEN FOOD ASSEMBLER Kassy Guzman MD PATHOLOGY/CYTOLOGY [facility] [address] [place] [address], [place] * HCV GENOTYPE AFTER AMPLIFICATION BLD (08/27/2013 3:59 PM KITCHEN FOOD ASSEMBLER) HEPATITIS C GENOTYPING 1b (Undetecte d) [facility] Comment:Testing was done usi ng the [employer] HCV Genotype II Assay. Blood specimen (specimen) BLOOD SPECIMEN / Unknown 08/27/2013 3:59 PM KITCHEN FOOD ASSEMBLER 08/27/2013 3:26 PM KITCHEN FOOD ASSEMBLER Narrative [facility] - 08/29/2013 3:25 PM KITCHEN FOOD ASSEMBLER Test Performed by: [facility] Med and Pathology [address] [place], [place] [address] Corporate Compliance Manager: Miguelito Garcia III M.D. Deep Deluca MD SEND OUTS [facility] [address] [place] [address] from Last 3 Months or Most Recently Relevant to Health Maintenance Advance Directives * Full Code (Latest Code Status on File) Date Activated Date Inactivated Comments 07/17/2023 9:03 PM 07/27/2023 2:15 PM Question Answer Comments Code Status Discussion: Reviewed Preferences Care Teams Director Outpatient Services Relationship Specialty Start Date End Date Arnulfo Alvarenga MD PCP - General Family Practice 01/09/13 Francine Gerard, Ita, LP [address] [facility] [address] [place] [address] Mental Health Provider Psychology 11/14/19
--- OUTSIDE RECORDS SUMMARY | 2023-12-20 15:20 | XMS_ITS | Clinical Summary ---
Author Name Unknown Organization [place] Address [address] [facility] [place] [address] Care Team Providers Care Patternmaker Hand Name Role Phone Arnulfo Alvarenga MD Primary Care Provider [phone] Active Problems Problem Noted Date Diagnosed Date [...] lb 6.4 oz) 08/03/2023 1:25 P M LOSS PREVENTION AND SAFETY MANAGER Height 157 cm (5' 1.81) 08/03/2023 1:25 PM LOSS PREVENTION AND SAFETY MANAGER Body Mass Index 34.67 08/03/2023 1:25 PM LOSS PREVENTION AND SAFETY MANAGER Plan of Treatment Health Maintenance Due Date [...] age to complete this topic Care Teams Patternmaker Hand Relationship Specialty Start Date End Date Arnulfo Alvarenga MD PCP - General Family Practice 10/09/13
--- NOTE | 2023-12-20 15:40 | MM_ITS ---
Patient: MOHIT COLLIER Facility:?[facility] Patient ID:?[id number] Site Patient ID:?[id number]. Site :?[id number] Study:?XRay-Breast Bilateral 3D W/CAD-12/20/2023 4:30:06 PM Ordering Physician:?Arnulfo Alvarenga Final Report: BILATERAL SCREENING MAMMOGRAM WITH COMPUTER-AIDED DETECTION AND TOMOSYNTHESIS TECHNIQUE: CC and MLO views were obtained. These mammographic images have been obtained using full-field digital technique. These mammographic images were interpreted with the benefit of computer-aided detection. Breast Tomosynthesis was used in this interpretation. COMPARISON FILM: 12/10/22, 10/28/21, 10/15/20. FINDINGS: There are scattered areas of fibroglandular density. IMPRESSION: There is no radiographic evidence for malignancy. ASSESSMENT: BI-RADS Category 1: Negative RECOMMENDATION: Routine screening mammogram in 1 year. A lay language report of this examination will be provided to the patient. Panchito Irizarry M.D. Diagnostic Radiologist [email or web address] DSM/sp R& Transcribed: 5:27 p.m. SP/Dictated by: Panchtio Irizarry MD @ 12/21/2023 10:51:00 AM Signed by:?Panchito Irizarry MD @12/21/2023 6:52:45 PM (Electronic Signature)
== END 2023-12-20 15:17 | disposition home or self-care (01) ==
LOC: MAMMO 15:17
PROVIDERS: PCP Family Medicine; Visit Provider Family Medicine
DX: Z12.31 Encounter for screening mammogram for malignant neoplasm of breast (principal)
CPT/HCPCS: 77063; 77067

== ENCOUNTER 2024-05-10 14:50 | Outpatient (REF) | payer MEDICAID, SELFPAY ==
[2024-05-10 15:48] LABS: Basophils Absolute Auto 0.01 K/uL (0.00-0.30); Basophils Percent Auto 0.2 % (0.0-3.0); Eosinophils Absolute Auto 0.08 K/uL (0.00-0.50); Eosinophils Percent Auto 1.5 % (0.0-7.0); Hematocrit 44.2 % (33.0-51.0); Hemoglobin* 14.6 gm/dL (12.0-16.0); Lymphocytes Absolute Auto 1.62 K/uL (0.90-2.90); Lymphocytes Percent Auto 29.5 % (20-44); Mean Corpuscular HGB Conc 33 gm/dL (32-36); Mean Corpuscular Hemoglobin 30 pg (26-34); Mean Corpuscular Volume 90 fL (80-100); Monocytes Percent Auto 8.5 % (0.0-11.0); Neutrophils Absolute Auto 3.32 K/uL (1.7-7.0); Neutrophils Percent Auto 60.3 % (42.0-72.0); Platelet Count* 195 K/uL (140-440); RDW Coefficient of Variation % 12.7 % (11.5-15.5); Red Blood Count 4.89 m/uL (4.00-5.20)
[2024-05-10 15:55] LABS: Slide Review Reflex No
[2024-05-10 16:13] LABS: Albumin* 4.7 g/dL (3.3-5.0); Chloride* 106 mmol/L (96-114)
[2024-05-10 16:14] LABS: Potassium* 4.2 mmol/L (3.6-5.1); Sodium* 140 mmol/L (135-149)
[2024-05-10 16:16] LABS: Alkaline Phosphatase* 98 U/L (40-150); Anion Gap 9 mEq/L (7-15); Aspartate Amino Transferase* 24 U/L (12-35); Bilirubin Total* 0.6 mg/dL (0.1-1.5); Carbon Dioxide* 25 mmol/L (20-32); Creatinine* 0.9 mg/dL (0.5-1.5); Estimated Glomerular Filt Rate 71 ml/min; Total Protein* 7.8 g/dL (6.0-8.3)
[2024-05-10 16:17] LABS: Alanine Aminotransferase* 17 U/L (4-35); Blood Urea Nitrogen* 21 mg/dL (7-30); Calcium* 9.3 mg/dL (8.4-10.6); Glucose* 118 mg/dL (60-115)
== END 2024-05-10 14:51 | disposition home or self-care (01) ==
LOC: NPINS 14:50
PROVIDERS: PCP Family Medicine; Visit Provider Dermatology
DX: L40.0 Psoriasis vulgaris (principal)
CPT/HCPCS: 80053; 85025

== ENCOUNTER 2024-08-17 12:36 | Outpatient (REF) | payer MEDICARE, SELFPAY ==
[2024-08-17 12:53] LABS: Albumin* 4.6 g/dL (3.3-5.0); Chloride* 107 mmol/L (96-114)
[2024-08-17 12:54] LABS: Sodium* 141 mmol/L (135-149)
[2024-08-17 12:56] LABS: Anion Gap 9 mEq/L (7-15); Aspartate Amino Transferase* 29 U/L (12-35); Bilirubin Total* 0.9 mg/dL (0.1-1.5); Carbon Dioxide* 25 mmol/L (20-32); Creatinine* 0.9 mg/dL (0.5-1.5); Estimated Glomerular Filt Rate 71 ml/min; Total Protein* 8.1 g/dL (6.0-8.3)
[2024-08-17 12:57] LABS: Alanine Aminotransferase* 21 U/L (4-35); Alkaline Phosphatase* 73 U/L (40-150); Blood Urea Nitrogen* 23 mg/dL (7-30); Calcium* 9.8 mg/dL (8.4-10.6); Glucose* 147 mg/dL (60-115)
[2024-08-17 12:59] LABS: Basophils Absolute Auto 0.03 K/uL (0.00-0.30); Basophils Percent Auto 0.4 % (0.0-3.0); Eosinophils Absolute Auto 0.14 K/uL (0.00-0.50); Eosinophils Percent Auto 1.9 % (0.0-7.0); Hematocrit 45.1 % (33.0-51.0); Hemoglobin* 14.9 gm/dL (12.0-16.0); Lymphocytes Absolute Auto 2.55 K/uL (0.90-2.90); Lymphocytes Percent Auto 34.3 % (20-44); Mean Corpuscular HGB Conc 33 gm/dL (32-36); Mean Corpuscular Hemoglobin 30 pg (26-34); Mean Corpuscular Volume 90 fL (80-100); Monocytes Percent Auto 6.2 % (0.0-11.0); Neutrophils Absolute Auto 4.25 K/uL (1.7-7.0); Neutrophils Percent Auto 57.2 % (42.0-72.0); Platelet Count* 260 K/uL (140-440); RDW Coefficient of Variation % 13.6 % (11.5-15.5); Red Blood Count 5.04 m/uL (4.00-5.20); White Blood Count* 7.43 K/uL (4.50-11.00)
[2024-08-17 13:03] LABS: Slide Review Reflex No
== END 2024-08-17 12:37 | disposition home or self-care (01) ==
LOC: NPINS 12:36
PROVIDERS: PCP Family Medicine; Visit Provider Dermatology
DX: L40.0 Psoriasis vulgaris (principal)
CPT/HCPCS: 80053; 85025

== ENCOUNTER 2024-09-21 09:57 | Outpatient (CLI) | payer MEDICAID, SELFPAY | END 2024-09-21 09:58 | disposition home or self-care (01) | LOC: NFLDREF 09-26 00:16 | PROVIDERS: PCP Family Medicine; Referring Provider Family Medicine; Visit Provider Family Medicine | DX: E78.5 Hyperlipidemia, unspecified (principal); I10 Essential (primary) hypertension | CPT/HCPCS: 80053; 80061 ==

== ENCOUNTER 2024-11-05 14:06 | Outpatient (CLI) | payer MEDICAID, SELFPAY ==
[2024-11-05 18:08] LABS: Basophils Absolute Auto 0.04 K/uL (0.00-0.30); Basophils Percent Auto 0.5 % (0.0-3.0); Eosinophils Absolute Auto 0.13 K/uL (0.00-0.50); Eosinophils Percent Auto 1.7 % (0.0-7.0); Hematocrit 43.7 % (33.0-51.0); Immature Granulocytes Abs Auto 0.01 K/uL (0.00-0.30); Immature Granulocytes Pct Auto 0.1 %; Lymphocytes Absolute Auto 2.79 K/uL (0.90-2.90); Lymphocytes Percent Auto 37.3 % (20-44); Mean Corpuscular HGB Conc 34 gm/dL (32-36); Mean Corpuscular Hemoglobin 30 pg (26-34); Mean Corpuscular Volume 87 fL (80-100); Neutrophils Percent Auto 52.4 % (42.0-72.0); Platelet Count* 246 K/uL (140-440); RDW Coefficient of Variation % 12.7 % (11.5-15.5); Red Blood Count 5.02 m/uL (4.00-5.20); White Blood Count* 7.47 K/uL (4.50-11.00)
[2024-11-05 18:14] LABS: Albumin* 4.5 g/dL (3.3-5.0); Chloride* 100 mmol/L (96-114)
[2024-11-05 18:15] LABS: Potassium* 3.4 mmol/L (3.6-5.1); Sodium* 139 mmol/L (135-149)
[2024-11-05 18:17] LABS: Anion Gap 10 mEq/L (7-15); Aspartate Amino Transferase* 24 U/L (12-35); Blood Urea Nitrogen* 17 mg/dL (7-30); Carbon Dioxide* 29 mmol/L (20-32); Creatinine* 0.8 mg/dL (0.5-1.5); Estimated Glomerular Filt Rate 82 ml/min; Total Protein* 7.8 g/dL (6.0-8.3)
[2024-11-05 18:18] LABS: Alanine Aminotransferase* 22 U/L (4-35); Alkaline Phosphatase* 104 U/L (40-150); Calcium* 9.2 mg/dL (8.4-10.6); Glucose* 101 mg/dL (60-115)
[2024-11-05 18:25] LABS: Slide Review Reflex No
== END 2024-11-05 14:07 | disposition home or self-care (01) ==
LOC: NPINS 14:08
PROVIDERS: PCP Family Medicine; Visit Provider Dermatology
DX: L40.0 Psoriasis vulgaris (principal)
CPT/HCPCS: 80053; 85025

== ENCOUNTER 2025-03-30 13:31 | Emergency (ER) | payer OTHER, SELFPAY ==
[2025-03-30] VITALS (14 sets, daily range): BP systolic 133–163; BP diastolic 82–93; PULSE 84–98; RESP 10–73; TEMP 36.9; O2SAT 88–97
--- OUTSIDE RECORDS SUMMARY | 2025-03-30 13:33 | XMS_ITS | Clinical Summary ---
Author Organization [employer] [facility] Address [address] [place] [address] Care Team Providers Care Staff Therapist Name Role Phone Arnulfo Alvarenga MD Primary Care Provider [phone] Francine GerardyD, LP Unavailable Allergies Active Allergy Reactions Criticality Noted Date Comments Sulfa (Sulfonamide Antibiotics) Other - Describe In Comment Field 01/09/2013 Facial swelling and itching Medications amLODIPine (NORVASC) 10 mg tablet Take 1 tablet by mouth once daily. 0 01/10/20 13 Active acyclovir (ZOVIRAX) 400 mg tablet Take 400 mg by mouth 3 times daily if needed (genital herpes). 30 tablet 0 01/10/20 13 Active buprenorphine-nal oxone, 8 mg-2 mg, (SUBOXONE) sublingual tablet Take two and a half tablets daily 0 08/07/20 14 Active omeprazole (PRILOSEC) 40 mg Delayed-Release capsule Take 40 mg by mouth once daily before a meal. 8 07/25/20 15 Active BiPapIndications: LUCERO (obstructive sleep apnea),Central sleep apnea comorbid with prescribed opioid use, severe BIPAP machine for home use at pressure: epap 5cm/H2O, PS 3-15 1 Device 06/07/20 16 Active VENTOLIN HFA 90 mcg/actuation inhaler Inhale 1 Puff by mouth every 4 hours if needed for Shortness Of Breath. 09/22/19 17 Active buPROPion (WELLBUTRIN XL) 300 mg Extended-Release tabletIndications :MARGARETTE (generalized anxiety disorder),PTSD (post-traumatic stress disorder) Take 1 tablet by mouth every morning. 30 tablet 3 05/30/20 19 Active hydrOXYzine HCL (ATARAX) 25 mg tabletIndications :MARGARETTE (generalized anxiety disorder) Take 1 tablet by mouth 3 times daily if needed for Anxiety. 30 tablet 2 01/09/20 20 Active amitriptyline (ELAVIL) 50 mg tablet Take 50 mg by mouth at bedtime. Active albuterol-ipratro pium (DUONEB) (2.5-0.5 mg) in 3 mL NEBULIZATION solution Inhale 1 Neb via a nebulizer every 6 hours. Active simvastatin (Zocor) 20 mg tablet Take 20 mg by mouth at bedtime. Active fluticasone fur-umeclidinium- vilanterol (Trelegy Ellipta) 100-62.5-25 mcg inhaler Inhale 1 [...] 1 Capsule by mouth once daily. Active Wvnoy-1-FOD-EPA-F torsten Oil (Fish OiL) 1,000 mg (120 mg-180 mg) cap Take 1 Capsule by mouth once daily. Active metoprolol succinate SR (TOPROL XL) 25 mg as half tablet Take 25 mg by mouth once daily. Active Biotin 1 mg tablet Take 1 Tablet by mouth once daily. Active acetaminophen (TYLENOL EXTRA STRGTH) 500 mg tabletIndications :Acute postoperative pain Take 2 Tablets (1,000 mg) by mouth every 6 hours. Max acetaminophen dose: 4000mg in 24 hrs. 100 Tablet 3 11:36 AM HIGH SCHOOL DIRECTOR 07/25/20 23 Active ibuprofen (ADVIL; MOTRIN) 600 mg tabletIndications :Acute postoperative pain Take 1 Tablet (600 mg) by mouth every 6 hours. Maximum of 3200 mg in 24 hours. 100 Tablet 3 11:36 AM HIGH SCHOOL DIRECTOR 07/25/20 23 Active sennosides (SENNA) 8.6 mg tabletIndications :Constipation, unspecified constipation type Take 1-2 Tablets (8.6-17.2 mg) by mouth 2 times daily if needed for Constipation. 20 Tablet 3 11:36 AM HIGH SCHOOL DIRECTOR 07/25/20 23 Active oxygen-air delivery systems (HOME OXYGEN)Indication s:Pneumonia of left lower lobe due to infectious organism Oxygen for home use. Liters per minute: 2 per nasal cannula. Frequency of use: Continuous with portability.;. Length of need: 3 Months. 1 Each 07/26/20 23 Active Active Problems Problem Noted Date Diagnosed [...] Encounters Date Type Department Care Team Description 03/22/2025 9:30 AM CDT Phone Office Visit [address] [facility] [address] [place] [address] Francine Gerard PsyD, VINCE Individual Therapy; Phone Visit (/) 03/01/2025 10:30 AM CDT Phone Office Visit [address] [place] [address] [place] [address] Francine Gerard PsyD, LP Late Cancel Appointment 03/01/[address] [place] [address] Francine Gerard PsyD, LP Appointment (MENTAL HEALTH ) 03/01/2025 Travel 02/01/2025 9:30 AM CDT Phone Office Visit [facility] [address] [facility] [address] [place] [address] Francine Gerard PsyD, LP Failed Appointment 01/11/2025 9:30 AM CDT Phone Office Visit [facility] [address] [facility] [address] [place] [address] Francine Gerard PsyD, LP Individual Therapy; Phone Visit from Last 3 Months Immunizations Immunization Administration Dates Next Due Influenza, IIV4 05/13/2016 [...] Answer Date Recorded PHQ-2 TOTAL SCORE 1 12/14/2024 Social Connections Answer Date Recorded Do you often feel lonely or isolated from those around you? 0 07/17/2023 Financial Resource Strain Answer Date R ecorded Difficulty of Paying Living Expenses 3 07/17/2023 Difficulty of Paying Living Expenses Not on file 07/17/2023 Food Insecurity Answer Date Recorded Do you worry your food will run out before you are able to buy more? 1 07/17/2023 Transportation Needs Answer Date Record ed Does lack of transportation keep you from medica l appointments? 1 07/17/2023 Does lack of transportation keep you from work, meetings or getting things that you need? 1 07/17/2023 Housing Stability Answer Date Recorded What is your housing situation today? 1 07/17/2023 Comments No Sex and Gender Information Value Date Recorded Sex Assigned at Not on file Legal Sex Female 3:37 PM CDT Gender Identity Not on file Sexual Orientation Not on file Obstetrics History Last Filed Vital Signs Vital Sign Reading Time Taken Comments Blood Pressure 143/88 07/27/2023 8:45 AM HIGH SCHOOL DIRECTOR Pulse 84 07/27/2023 8:54 AM HIGH SCHOOL DIRECTOR Temperature 36.7 C (98 F) 07/27/2023 8:54 AM HIGH SCHOOL DIRECTOR Respiratory Rate 16 07/27/2023 8:54 AM HIGH SCHOOL DIRECTOR Oxygen Saturation 94% 07/27/2023 8:45 AM HIGH SCHOOL DIRECTOR Inhaled Oxygen Concentration - - Weight 91 kg (200 lb 9.6 oz) 07/27/2023 5:43 AM HIGH SCHOOL DIRECTOR Height 162.6 cm (5' 4) 07/17/2023 8:29 PM HIGH SCHOOL DIRECTOR Body Mass Index 34.43 07/17/2023 8:29 PM HIGH SCHOOL DIRECTOR Plan of Treatment Upcoming Encounters Date Type Department Care Team (Late st Contact Info) Description 04/19/2025 9:30 AM CDT Phone Office Visit [facility] [address] [place] [phone] Rajani, Francine A, PsyD, LP [address] [phone] 05/17/2025 9:30 AM CDT Phone Office Visit [facility] [address] [phone] Rajani, Francine A, PsyD, LP [address] [address] 06/21/2025 9:30 AM CDT Phone Office Visit [facility] [address] [address] Rajani, Francine A, PsyD, LP [address] [phone] 07/12/2025 9:30 AM HIGH SCHOOL DIRECTOR Phone Office Visit [facility] [address] [place] [address] [place] [address] Rajani, Francine A, PsyD, LP [address] [phone] 08/09/2025 9:30 AM HIGH SCHOOL DIRECTOR Phone Office Visit [facility] [address] [place] [address] Francine Gerard, ObdulioyD, LP [address] [place] [address] Health Maintenance Due Date Last Done Comments HIV for age 15-65 11/01/1974 Pneumococcal series for age 50+ (1 of 2 - PCV) 11/01/1978 Colonoscopy through age 75 11/01/2004 Zoster (shingles) series for age 50+ (1 of 2) 11/01/2009 Mammogram for age 45-75 06/22/2013 06/22/20 12 (Completed outside of [facility]) Lipids for age 45-75 07/12/2017 07/12/2012 (Completed outside of [facility]) BMI (ht and wt on same day) for age 18+ 10/21/2017 10/21/2016, 02/05/2016 Pap test for age 21-65 09/16/2018 6, 09/16/2015, 07/24/2012 (Completed outside of [facility]) Tetanus booster 12/21/2020 12/21/2010 (Comp leted outside of [facility]) DEXA/DXA scan for age 65+ 11/01/2024 Medicare Wellness for age 65+ 11/01/2024 COVID-19 vaccine series (2023- season) 2025 09/25/2024, 12/23/2021, 08/06/2021, Additional history exists Influenza Vaccine (#1) 2025 05/13/2016 Depression screening for age 12+ 12/14/2025 12/14/2024, 01/27/2024, 2023, Additional history exists RSV vaccine for adults or (1 - 1-dose 75+ series) 11/01/2034 Hepatitis C screening for age 18-79 Completed 08/27/2013, 08/27/2013 Hepatitis B series for 19+ Aged Out N o longer eligible based on patient's age to complete this topic Procedures Procedure Name Priority Date/Time Associated Diagnosis Comments OFFICE ASSISTANT THIN PREP PAP SCREEN IMAGED Routine 09/16/2015 1:23 PM HIGH SCHOOL DIRECTOR HCV GENOTYPE AFTER AMPLIFICATION BLD Routine 08/27/2013 3:59 PM HIGH SCHOOL DIRECTOR Hepatitis C from Last 3 Months or Most Recently Relevant to Health Maintenance Results * OFFICE ASSISTANT THIN PREP PAP SCREEN IMAGED (09/16/2015 1:23 PM HIGH SCHOOL DIRECTOR) OFFICE ASSISTANT CYTOLOGY See Anatomic Pathology case 09/22/2015 9:00 PM HIGH SCHOOL DIRECTOR [facility] Specimen (specimen) (Cervical) Client Collect / Unknown 09/16/2015 1:23 PM HIGH SCHOOL DIRECTOR 09/17/2015 8:42 PM HIGH SCHOOL DIRECTOR us Kassy Guzman MD PATHOLOGY/CYTOLOGY Final Res ult [facility] [address] [place] [address], * HCV GENOTYPE AFTER AMPLIFICATION BLD (08/27/2013 3:59 PM HIGH SCHOOL DIRECTOR) HEPATITIS C GENOTYPING 1b (Undetecte d) [facility] Comment:Testing was done usi ng the [employer] HCV Genotype II Assay. Blood specimen (specimen) BLOOD SPECIMEN / Unknown 08/27/2013 3:59 PM HIGH SCHOOL DIRECTOR 08/27/2013 3:26 PM HIGH SCHOOL DIRECTOR Narrative [facility] - 08/29/2013 3:25 PM HIGH SCHOOL DIRECTOR Test Performed by: [facility] Dpt of Lab Med and Pathology [address] [place], [place] [address] Auto Electrical Technician: Miguelito Garcia III M.D. us Deep Deluca MD SEND OUTS Final Res ult [facility] [address] [place] [address] from Last 3 Months or Most Recently Relevant to Health Maintenance Insurance MEDICARE PART A HB ONLY MEDICARE PART B HB ONLY [facility] Advance Directives * Full Code (Latest Code Status on File) Date Activated Date Inactivated Comments 07/17/2023 9:03 PM 07/27/2023 2:15 PM Question Answer Comments Code Status Discussion: Reviewed Preferences Care Teams Staff Therapist Relationship Specialty Start Date End Date Arnulfo Alvarenga MD PCP - General Family Practice 01/09/13 Francine Gerard PsyD, LP [address] [place] [address] Mental Health Provider Psychology 11/14/19
--- OUTSIDE RECORDS SUMMARY | 2025-03-30 13:33 | XMS_ITS | Encounter Summary ---
Author Organization [place] Address [address] [facility] [place] [address] Care Team Providers Care Rn Endoscopy Name Role Phone Sánchez Judge MD Primary Care Provider [phone] Arnulfo Alvarenga MD Primary Care Provider [phone] Encounter Details Date Type Department Care Team (Late st Contact Info) Description 10/04/2013 Office Visit-P INTERFACE P DEPT Maksim Monaco MD XXX [place] LICENSE INACTIVE OF JANUARY 2024 XXX Social History Tobacco Use Types Packs/Day Years Used Date Smoking Tobacco: Never Assessed Comments Unknown Sex and Gender Information Value Date Recorded Sex Assigned at Not on file Legal Sex Female 2:24 PM GEM CARVER Gender Identity Not on file Sexual Orientation Not on file documented as of this encounter Progress Notes * Maksim Monaco - 10/04/2013 12:00 AM CST Hatchery Manager: Maksim Monaco Status: Unsigned Encounter: 2013-10-04 00:00:00.000 Type: Neurology Letter [facility] [address] [place] [id number] October 04, 2013 RE: Mohit Trejo : 1960 LAVER[place]: 10/04/2013 [facility] [address] [place] [id number] RE: MOHIT TREJO : 1960 LAVERNE: 10/04/2013 REFERRING: Sánchez Judge MD [facility] [address] [facility] [address] INDICATIONS: RIGHT AND LEFT UPPER EXTREMITY EMG [...] right carpal tunnel syndrome. Maksim Monaco MD [facility] Department of Neurology Maksim Monaco MD Department of Neurology [facility]:11 CARVER documented in this encounter Plan of Treatment Not on file documented as of this encounter Visit Diagnoses Not on filedocumented in this encounter Care Teams Rn Endoscopy Relationship Specialty Start Date End Date Sánchez Judge MD [facility] [address] [facility] [place] [address] PCP - General 08/02/13 10/08/13 Arnulfo Alvarenga MD [facility] [address] [facility] [address] PCP - General Family Practice 10/09/13 documented as of this encounter
--- OUTSIDE RECORDS SUMMARY | 2025-03-30 13:33 | XMS_ITS ---
Author Name Interface, [id number] lity Address [address] [place], [place] [address] [place] [address] [facility] Address [facility] [place] [address] Plan Reason for Visit Encounters Medications Problems Vital Signs
--- OUTSIDE RECORDS SUMMARY | 2025-03-30 13:33 | XMS_ITS | Clinical Summary ---
Author Organization [place] Address [address] [facility] [place] [address] Care Team Providers Care Bottling Supervisor Name Role Phone Arnulfo Alvarenga MD Primary Care Provider [phone] Active Problems Problem Noted Date Diagnosed Date Cervical radiculopathy 10/04/2013 Social History Tobacco Use Types Packs/Day Years Used Date Smoking Tobacco: Never Assessed Adolescent Education Answer Date Record ed Getting School Help Needed Not on file 07/25 Comments Unknown Sex and Gender Information Value Date Recorded Sex Assigned at Not on file Legal Sex Female 2:24 PM STORE SALES MANAGER Gender Identity Not on file Sexual Orientation Not on file Last Filed Vital Signs Vital Sign Reading Time Taken Comments Blood Pressure - - Pulse - - Temperature - - Respiratory Rate - - Oxygen Saturation - - Inhaled Oxygen Concentration - - Weight 85.5 kg (188 lb 6.4 oz) 08/03/2023 1:25 P M STORE SALES MANAGER Height 157 cm (5' 1.81) 08/03/2023 1:25 PM STORE SALES MANAGER Body Mass Index 34.67 08/03/2023 1:25 PM STORE SALES MANAGER Plan of Treatment Health Maintenance Due Date Last Done Comments ADVANCE CARE PLANNING 1960 ANNUAL REVIEW OF HM ORDERS 1960 CT COLONOGRAPHY 1960 DEXA 1960 DIABETES SCREENING 1960 FIT 1960 FLEX SIG 1960 MAMMO SCREENING 1960 sDNA (Cologuard) 1960 COLONOSCOPY 11/01/1969 COLORECTAL CANCER SCREENING 11/01/1969 HIV SCREENING 11/01/1974 HEPATITIS C SCREENING 11/01/1977 LIPID 1999 DTAP/TDAP/TD VACCINE (1 - Tdap) 04/11/2013 04/10/2013, 01/14/2009 PNEUMOCOCCAL VACCINE 50+ YEARS (2 of 2 - PCV) 02/20/2019 02/20/2018, 03/18/2009 COVID-19 VACCINE ( season) 2024 12/23/2021, 08/06/2021, 11/06/2020, Additional history exists PHQ-2 (once per calendar year) 2024 FALL RISK ASSESSMENT 11/01/2024 MEDICARE ANNUAL WELLNESS VISIT 11/01/2024 INFLUENZA VACCINE (#1) 2025 , 09/09/2021, 09/04/2020, Additional history exists RSV VACCINE (1 - 1-dose 75+ series) 11/01/2034 ZOSTER VACCINE Completed 02/13/2019, 02/20/2018 HPV VACCINE (No Doses Required) Completed MENINGITIS VACCINE Aged Out No longer eligible based on patient's age to complete this topic Insurance MEDICARE [facility] MEDICARE SUPPLEMENT [facility] MEDICARE [employer] MEDICARE SUPPLEMENT [facility] Care Teams Bottling Supervisor Relationship Specialty Start Date End Date Arnulfo Alvarenga MD PCP - General Family Practice 10/09/13
--- OUTSIDE RECORDS SUMMARY | 2025-03-30 13:33 | XMS_ITS | CCD ---
Author Name Interface, [id number] lity Address [address] [facility] [address] [address] Organization [facility] Address [address] [facility] [address] [place] [address] Care Team Providers Care Chauffeur Name Role Phone Frederick Wu MD Unavailable Unavailable Reason for Visit OUTSIDE TEST 5 MIN Medications Date Name Route Dose Frequency Instructions Start Date End Date Status Fluticasone-Salmet barbara Inhaler 100 mcg-50 mcg/Dose daily acti ve Metoprolol Oral 24 hr Tab (Succinate) 1.0 daily a ctive Simvastatin Oral 1.0 daily active Omeprazole Oral Delayed Release Capsule 1.0 daily active Cyclosporine Oral 2.0 twice daily active Hydroxyzine HCl Oral 1.0 twice daily active Bupropion (XL) Oral 24 hr Tab 1.0 daily activ e Buprenorphine-Nalo xone Buccal Film 8 mg-2 mg daily active Ibuprofen Oral 1.0 PRN ac tive Amitriptyline Oral daily active Problems Diagnosis Status Date of Diagnosis Resolution Date Post op pain Active Empyema of pleura (disorder) Active Social History Date Name Value Sex Female
--- NOTE | 2025-03-30 13:52 | CRLHL7_ITS ---
For Patients: As a result of the Century Cures Act, medical imaging exams and procedure reports are released immediately into your electronic medical record. You may view this report before your referring provider. If you have questions, please contact your health care provider. INDICATION: Right lower quadrant abdominal pain. TECHNIQUE: Axial noncontrast CT cuts were performed from above diaphragm to below the ischial tuberosities. The images were formatted in the sagittal, axial and coronal planes. Comparison : 02/21/2018. FINDINGS: There is a moderate-sized hiatal hernia that is smaller since the previous CT. There was a large midline ventral hernia that has been repaired since the prior exam. The appendix is not inflamed. The colon and small bowel appear normal. There is no free intraperitoneal air or fluid. The liver, spleen, pancreas, adrenals and left kidney appear normal. There is a 2 mm nonobstructive calculus of the right kidney. There are no ureteral or bladder calculi. There are no enlarged retroperitoneal or mesenteric lymph nodes. The uterus and urinary bladder appear normal. There is no iliac or inguinal lymphadenopathy. There are no pulmonary nodules or masses at the lung bases. There is a subpleural lipoma adjacent to the right posterior medial lung base measuring approximately 4.6 x 2.6 cm in the axial plane and 6.5 cm cranial caudally. There are no lytic or sclerotic skeletal lesions. There is a lumbar scoliosis convex right. IMPRESSION: 1. Moderate hiatal hernia. 2. There is a 2 mm nonobstructive calculus of the right kidney. Please note that all CT scans at this facility use dose modulation, iterative reconstruction, and/or weight-based dosing when appropriate to reduce radiation dose to as low as reasonably achievable. Dictated by Justin Nixon MD @ 03/30/2025 4:11:03 PM (Electronically Signed)
--- NOTE | 2025-03-30 13:54 | ED.ABDPAIN ---
HPI - Abdominal Pain General Chief Complaint: Abdominal Pain Stated Complaint: PAIN ON LOWER RIGHT SIDE OF ABDOMEN Time Seen by Provider: 03/30/25 13:47 History of Present Illness HPI narrative: Patient is a 64-year-old woman who woke this morning with severe pain in her right lower quadrant. She has had no fevers no chills no night sweats. The pain has no radiation. She has had no nausea vomiting fever chills. Patient has had no significant abdominal surgeries in the past. Patient presents to the emergency room. Her last meal was last night greater than 12 hours ago. Related Data Home Medications ?Medication ?Instructions ?Recorded ?Confirmed biotin 1 tab PO DAILY 09/09/22 01/07/25 omega-3 fatty acids 500 mg PO QDAY 09/09/22 01/07/25 Lactobacillus acidophilus 10 mg PO DAILY 07/12/23 01/07/25 (Acidophilus capsule) cholecalciferol (vitamin D3) 25 25 mcg PO DAILY 07/12/23 01/07/25 mcg (1,000 unit) tablet (Vitamin D3) ferrous sulfate 325 mg (65 mg 325 mg PO DAILY 07/12/23 01/07/25 iron) tablet cyclosporine 100 mg capsule 200 mg PO BID 09/25/24 01/07/25 Previous Rx's ?Medication ?Instructions ?Recorded acyclovir 400 mg tablet 400 mg PO TID PRN genital herpes 09/25/24 #30 tabs amlodipine 10 mg tablet 10 mg PO HS #90 tabs 09/25/24 atorvastatin 10 mg tablet 10 mg PO QHS #90 tabs 09/25/24 bupropion HCl 300 mg 24 hr tablet, 300 mg PO DAILY #90 tabs 09/25/24 extended release fluticasone fur. 100 mcg-umeclid 1 inh inhalation DAILY #180 ea 09/25/24 62.5 mcg-vilant 25 mcg inhalat.powder (Trelegy Ellipta) hydroxyzine HCl 25 mg tablet 25 mg PO TID PRN anxiety #90 tabs 09/25/24 metoprolol succinate 25 mg 25 mg PO DAILY #90 tabs 09/25/24 tablet,extended release 24 hr omeprazole 40 mg capsule,delayed 40 mg PO QDAY #90 caps 09/25/24 release amitriptyline 25 mg tablet 25 mg PO QHS #90 tabs 11/05/24 buprenorphine 8 mg-naloxone 2 mg 2.5 film sublingual DAILY #70 ea 01/07/25 sublingual film cyclobenzaprine 5 mg tablet 5 mg PO TID PRN muscle spasm #90 01/07/25 tabs ibuprofen 800 mg tablet 800 mg PO TID PRN pain #30 tabs 01/30/25 albuterol sulfate 90 mcg/actuation 2 puff inhalation Q4H PRN 03/12/25 aerosol inhaler shortness of breath or wheezing #8.5 grams potassium chloride 20 mEq 20 meq PO DAILY #30 tabs 03/30/25 tablet,extended release Allergies Allergy/AdvReac Type Severity Reaction Status Date / Time Sulfa (Sulfonamide Allergy Mild Rash Verified 03/30/25 15:19 Antibiotics) Review of Systems Status of ROS Reports: 10 or more systems reviewed and unremarkable except as noted in History and below [facility] Medical History History of respiratory failure ?Z87.09 - Personal history of other diseases of the respiratory system (ICD-10) History of empyema of pleura ?Z87.09 - Personal history of other diseases of the respiratory system (ICD-10) Anxiety (12/14/12) ?F41.9 - Anxiety disorder, unspecified (ICD-10) Gastroesophageal reflux disease (12/14/12) ?K21.9 - Gastro-esophageal reflux disease without esophagitis (ICD-10) Insomnia (12/14/12) ?G47.00 - Insomnia, unspecified (ICD-10) Genital herpes ?A60.00 - Herpesviral infection of urogenital system, unspecified (ICD-10) Chronic obstructive pulmonary disease ?J44.9 - Chronic obstructive pulmonary disease, unspecified (ICD-10) Hyperlipidemia ?E78.5 - Hyperlipidemia, unspecified (ICD-10) Disorders of fluid, electrolyte, and acid-base balance ?E87.8 - Other disorders of electrolyte and fluid balance, not elsewhere classified (ICD-10) Skin fissures ?R23.4 - Changes in skin texture (ICD-10) Tobacco dependence ?F17.200 - Nicotine dependence, unspecified, uncomplicated (ICD-10) Opioid use disorder ?F11.90 - Opioid use, unspecified, uncomplicated (ICD-10) Uterine fibroid ?D25.9 - Leiomyoma of uterus, unspecified (ICD-10) Simple obesity (12/14/12) ?E66.9 - Obesity, unspecified (ICD-10) PTSD (post-traumatic stress disorder) (12/14/12) ?F43.10 - Post-traumatic stress disorder, unspecified (ICD-10) Opioid dependence ?F11.20 - Opioid dependence, uncomplicated (ICD-10) Obstructive sleep apnea syndrome ?G47.33 - Obstructive sleep apnea (adult) (pediatric) (ICD-10) Low back pain ?M54.50 - Low back pain, unspecified (ICD-10) Hypertension ?I10 - Essential (primary) hypertension (ICD-10) Hiatal hernia ?K44.9 - Diaphragmatic hernia without obstruction or gangrene (ICD-10) Hammer toe ?M20.40 - Other hammer toe(s) (acquired), unspecified foot (ICD-10) Encounter for screening laboratory testing for severe acute respiratory syndrome coronavirus 2 (SARS-CoV-2) ?Z20.822 - Contact with and (suspected) exposure to COVID-19 (ICD-10) Encounter for pre-operative examination ?Z01.818 - Encounter for other preprocedural examination (ICD-10) Dysthymic disorder (12/14/12) ?F34.1 - Dysthymic disorder (ICD-10) Chronic low back pain ?M54.50 - Low back pain, unspecified (ICD-10) ?G89.29 - Other chronic pain (ICD-10) Chronic hepatitis C virus infection (12/14/12) ?B18.2 - Chronic viral hepatitis C (ICD-10) Central sleep apnea ?G47.31 - Primary central sleep apnea (ICD-10) Carpal tunnel syndrome ?G56.00 - Carpal tunnel syndrome, unspecified upper limb (ICD-10) Acute postoperative respiratory insufficiency ?J95.89 - Other postprocedural complications and disorders of respiratory system, not elsewhere classified (ICD-10) Abscess or cellulitis of thigh Abscess ?L02.91 - Cutaneous abscess, unspecified (ICD-10) Encounter for buttermilk drier operator current cyclosporin A therapy ?Z79.621 - keno terminal operator (current) use of calcineurin inhibitor (ICD-10) Infection ?B99.9 - Unspecified infectious disease (ICD-10) On methotrexate therapy ?Z79.631 - senior living (current) use of antimetabolite agent (ICD-10) Psoriasis ?L40.9 - Psoriasis, unspecified (ICD-10) Psoriasis ?L40.9 - Psoriasis, unspecified (ICD-10) History of anemia ?Z86.2 - Personal history of diseases of the blood and blood-forming organs and certain disorders involving the immune mechanism (ICD-10) History of traumatic injury of head ?Z87.828 - Personal history of other (healed) physical injury and trauma (ICD-10) Surgical History History of tonsillectomy ?Z90.89 - Acquired absence of other organs (ICD-10) Status post laparoscopic Jerilyn fundoplication ?Z98.890 - Other specified postprocedural states (ICD-10) History of bunionectomy ?Z98.890 - Other specified postprocedural states (ICD-10) Social History What is your current living situation?: I presently have a place to live Problems where you live: no known problems Problems where you live details: none In the past 12 months, utilities in danger of being shut off: no In past 12 months, lack of transportation kept you from medical appts, meetings, work, or getting things needed for daily living: no In the past 12 mos, have been you worried that your food would run out before you had money to buy more?: never true In the past 12 mos, the food you bought just didn't last and you didn't have money to buy more?: never true Are you following a diet prescribed by a doctor: No Are you following a special diet: No Highest level of school completed/degree received: high school graduate Smoking Status: Current every day smoker What tobacco products do you use: cigarettes Smoking packs per day: 1 Smoking cigarettes per day: 20.0 Do you use any of these nicotine containing products: None Second hand tobacco smoke exposure: No How often do you have a drink containing alcohol: never AUDIT-C Alcohol total score: 0 Non-prescribed substance use: former substance user Non-prescribed substance use details: clean from heroin since 2006 Caffeine: Yes How often does anyone, including family, friends and others, physically hurt you: never How often does anyone, including family, friends and others, insult or talk down to you: never How often does anyone, including family, friends and others, threaten you with harm: never How often does anyone, including family, friends and others, scream or curse at you: never service: No Exam Narrative: Exam Narrative: EXAM GENERAL: Patient appears comfortable and well. EYES: No scleral icterus. LYMPH: No supraclavicular or cervical lymphadenopathy. SKIN: Visible skin seen during exam normal or with benign process only. EXT: No dependent lower extremity pedal edema. HEART: Regular rate and rhythm with no murmurs, rubs, or gallops. LUNGS: Clear to auscultation bilaterally with no crackles or wheezes. ABD: Soft, non tender, non distended. PSYCH: Good eye contact, speech is not pressured. Const: Vital Signs, click to edit/add: Vital Signs - 24 hr 03/30/25 13:38 03/30/25 15:13 03/30/25 15:15 Temperature 98.5 F Pulse Rate 85 84 Pulse Rate [Right Pulse Oximeter] 91 Respiratory Rate 18 73 H 13 Blood Pressure [Ri ght Upper Arm] 163/82 H Pulse Oximetry 94 92 92 Oxygen Delivery Me thod Room Air 03/30/25 15:35 03/30/25 15:36 Temperature Pulse Rate 95 Pulse Rate [Right Pulse Oximeter] Respiratory Rate 13 15 Blood Pressure [Ri ght Upper Arm] Pulse Oximetry 90 Oxygen Delivery Me thod Course Course ED Course: Patient seen and examined. CBC comprehensive metabolic panel lipase UA CT abdomen pelvis pending. Vital Signs Vital signs: Initial Vital Signs Temperature 98.5 F 03/30/25 13:38 Temperature Source Temporal Artery Scan 03/30/25 13:38 Pulse Rate 91 03/30/25 13:38 Pulse Rhythm Regular 03/30/25 13:38 Respiratory Rate 18 03/30/25 13:38 Blood Pressure 163/82 H 03/30/25 13:38 Blood Pressure Mean 109 H 03/30/25 13:38 Pulse Oximetry 94 03/30/25 13:38 Oxygen Delivery Method Room Air 03/30/25 13:38 Vital Signs Temperature 98.5 F 03/30/25 13:38 Pulse Rate 91 03/30/25 13:38 Respiratory Rate 18 03/30/25 13:38 Blood Pressure 163/82 H 03/30/25 13:38 Pulse Oximetry 94 03/30/25 13:38 Oxygen Delivery Method Room Air 03/30/25 13:38 Temperature 98.5 F 03/30/25 13:38 Pulse Rate 95 03/30/25 15:36 Respiratory Rate 15 03/30/25 15:36 Blood Pressure 163/82 H 03/30/25 13:38 Pulse Oximetry 90 03/30/25 15:36 Oxygen Delivery Method Room Air 03/30/25 13:38 Medications Administered Medications: Generic Name Dose Route Start Last Admin Trade Name Freq PRN Reason Stop Dose Admin Potassium Chloride 10 meq in 100 mls @ 100 mls/hr 03/30/25 15:15 03/30/25 16:15 Potassium Chloride IVPB 03/30/25 17:44 100 mls/hr Q90M LEO Administration Discontinued Medications Generic Name Dose Route Start Last Admin Trade Name Freq PRN Reason Stop Dose Admin Ketorolac Tromethamine 30 mg 03/30/25 15:07 03/30/25 15:13 Ketorolac 30 Mg/Ml Inj IVP 03/30/25 15:08 30 mg ONCE ONE Administration MDM - Abdominal Pain MDM Narrative Medical decision making narrative: Patient is a 64-year-old woman who presents with right flank pain. She has evidence of 2 mm kidney stone. We did find also low potassium of 2.6. We did give her IV potassium in the ER will start her at the patient on potassium as well. I did instruct her on pain control and hydration for her kidney stone. Her case is complicated in that she is on buprenophine. She does have a follow-up with her pain clinic and I did recommend that we continue her current pain management. She is sent home with stone collection kit as well. Lab Data Labs: Lab Results 03/30/25 03/30/25 Range/Units 14:25 14:54 WBC 8.26 (4.50-11.00) K/uL RBC 5.13 (4.00-5.20) m/uL Hgb 15.4 (12.0-16.0) gm/dL Hct 43.7 (33.0-51.0) % MCV 85 (80-100) fL MCH 30 (26-34) pg MCHC 35 (32-36) gm/dL RDW Coeff of Sher 12.5 (11.5-15.5) % Plt Count 225 (140-440) K/uL Neut % (Auto) 75.2 H (42.0-72.0) % Lymph % (Auto) 15.7 L (20-44) % Dent % (Auto) 7.5 (0.0-11.0) % Eos % (Auto) 0.7 (0.0-7.0) % Baso % (Auto) 0.2 (0.0-3.0) % Neut # (Auto) 6.20 (1.7-7.0) K/uL Lymph # (Auto) 1.30 (0.90-2.90) K/uL Dent # (Auto) 0.60 (0.00-0.90) K/UL Eos # (Auto) 0.06 (0.00-0.50) K/uL Baso # (Auto) 0.02 (0.00-0.30) K/uL Abs Immat Gran (auto) 0.06 (0.00-0.30) K/uL Imm/Tot Granulo (auto) 0.7 % Sodium 140 (135-149) mmol/L Potassium 2.6 L* (3.6-5.1) mmol/L Chloride 99 (96-114) mmol/L Carbon Dioxide 32 (20-32) mmol/L Anion Gap 9 (7-15) mEq/L BUN 14 (7-30) mg/dL Creatinine 0.8 (0.5-1.5) mg/dL Estimated Creat Clear 48.43 Estimated GFR 82 ml/min Glucose 120 H (60-115) mg/dL Calcium 9.3 (8.4-10.6) mg/dL Total Bilirubin 1.3 (0.1-1.5) mg/dL AST 37 H (12-35) U/L ALT 26 (4-35) U/L Alkaline Phosphatase 114 (40-150) U/L Total Protein 8.6 H (6.0-8.3) g/dL Albumin 4.6 (3.3-5.0) g/dL Lipase 16 L (23-300) U/L Urine Color Yellow (Yellow) Urine Appearance Clear (Clear) Urine pH 7.5 (5.0-8.5) Ur Specific [place] 1.015 (1.000-1.030) Urine Protein 1+ A (Negative) Urine Glucose (UA) Negative (Negative) Urine Ketones Negative (Negative) Urine Blood Trace-intact A (Negative) Urine Nitrite Negative (Negative) Urine Bilirubin Negative (Negative) Urine Urobilinogen 2.0 A (0.2-1.0) Ur Leukocyte Esterase Negative (Negative) Urine RBC 2-5 A (0-2) Urine WBC 2-5 (0-5) Ur Squamous Epith Cells Few (None-Few) Urine Bacteria None (None) Discharge Plan Discharge Clinical Impression: Kidney stone Patient Disposition: Home, Self-Care Condition: Stable Instructions: Kidney Stones (ED) Additional Instructions: Strain urine with kit Potassium as directed Stay hydrated Follow-up with your doctor this week with repeat potassium level. Pain control as previous. Activity Level: No Restrictions Discharge Diet: Regular Prescriptions: New potassium chloride 20 mEq tablet extended release 20 meq PO DAILY Qty: 30 3RF No Action buprenorphine-naloxone 8-2 mg film 2.5 film sublingual DAILY Qty: 70 2RF cyclobenzaprine 5 mg tablet 5 mg PO TID PRN (Reason: muscle spasm) Qty: 90 6RF omega-3 fatty acids Capsule 500 mg PO QDAY biotin 1 tab PO DAILY acyclovir 400 mg tablet 400 mg PO TID PRN (Reason: genital herpes) Qty: 30 5RF Rx Instructions: x 5 days for outbreak amlodipine 10 mg tablet 10 mg PO HS Qty: 90 3RF bupropion HCl 300 mg tablet extended release 24 hr 300 mg PO DAILY Qty: 90 3RF Trelegy Ellipta 100-62.5-25 mcg blister with device 1 inh inhalation DAILY Qty: 180 3RF hydroxyzine HCl 25 mg tablet 25 mg PO TID PRN (Reason: anxiety) Qty: 90 3RF metoprolol succinate 25 mg tablet extended release 24 hr 25 mg PO DAILY Qty: 90 3RF omeprazole 40 mg capsule,delayed release(DR/EC) 40 mg PO QDAY Qty: 90 3RF atorvastatin 10 mg tablet 10 mg PO QHS Qty: 90 3RF Rx Instructions: cancel 20 mg script please cyclosporine 100 mg capsule 200 mg PO BID amitriptyline 25 mg tablet 25 mg PO QHS Qty: 90 3RF Acidophilus Capsule 10 mg PO DAILY ferrous sulfate 325 mg (65 mg iron) tablet 325 mg PO DAILY cholecalciferol (vitamin D3) [Vitamin D3] 25 mcg (1,000 unit) tablet 25 mcg PO DAILY ibuprofen 800 mg tablet 800 mg PO TID PRN (Reason: pain) Qty: 30 5RF albuterol sulfate 90 mcg/actuation HFA aerosol inhaler 2 puff inhalation Q4H PRN (Reason: shortness of breath or wheezing) Qty: 8.5 6RF Follow Up/Referrals: Arnulfo Alvarenga MD [Primary Care Provider, Family Practice] Stand Alone Forms: [employer] Info Instructions
--- OUTSIDE RECORDS SUMMARY | 2025-03-30 14:04 | XMS_ITS ---
Author Name Interface, [id number] lity Address [address] [place], [place] [address] [place] [address] [facility] Address [facility] [place] [address] Plan Reason for Visit Encounters Medications Problems Vital Signs
--- OUTSIDE RECORDS SUMMARY | 2025-03-30 14:04 | XMS_ITS ---
Author Name Interface, [id number] lity Address [address] [facility] [address] [address] [facility] Address [address] [facility] [address] [address] Plan Date Type Value 08/03/2023 APPOINTMENT OUTSIDE TEST 5 M IN 08/03/2023 APPOINTMENT [facility] FOL LOW UP 15 MIN 08/03/2023 APPOINTMENT [facility] FOL LOW UP 15 MIN 08/03/[address] [facility] LOW UP 15 MIN 08/03/2023 APPOINTMENT OUTSIDE TEST 5 M IN Reason for Visit [facility] FOLLOW UP 15 MIN Encounters Date Name 08/03/2023 Empyema of pleura (d isorder) 08/03/2023 Post op pain Medications Date Name Route Dose Frequency Instructions Start Date End Date Status Ibuprofen Oral 1.0 PRN ac tive Omeprazole Oral Delayed Release Capsule 1.0 daily active Metoprolol Oral 24 hr Tab (Succinate) 1.0 daily active Simvastatin Oral 1.0 daily active Fluticasone-Salm eterol Inhaler 100 mcg-50 mcg/Dose daily active Buprenorphine-Na loxone Buccal Film 8 mg-2 mg daily activ e Hydroxyzine HCl Oral 1.0 twice daily active Cyclosporine Oral 2.0 twice daily active Bupropion (XL) Oral 24 hr Tab 1.0 daily activ e Amitriptyline Oral daily active 023 oxycodone hydrochloride 5 MG Oral Tablet orally 1.0 tablet 1 to 2 times per day 08/03/20 23 active Problems Diagnosis Status Date of Diagnosis Resolution Date Post op pain Active Empyema of pleura (disorder) Active Vital Signs Date Type Value 08/03/2023 Body Temperature 98.10 08/03/2023 Heart Beat 87.00 08/03/2023 Respiratory Rate 18.00 08/03/2023 Intravascular Systolic 130 08/03/2023 Intravascular Diastolic 70 08/03/2023 Pain Scale 6.00 08/03/2023 Weight 189.40 08/03/2023 Oxygen Saturation 100.00
--- OUTSIDE RECORDS SUMMARY | 2025-03-30 14:04 | XMS_ITS | CCD ---
Author Name Interface, [id number] lity Address [address] [place] [address] [facility] Address [address] [place] [address] Care Team Providers Care Non Linear Editor Name Role Phone Frederick Wu MD Unavailable Unavailable Reason for Visit Medications Problems Social History
--- OUTSIDE RECORDS SUMMARY | 2025-03-30 14:04 | XMS_ITS | CCD ---
Author Name Interface, [id number] lity Address [address] [facility] [address] [address] Organization [facility] Address [address] [facility] [address] [place] [address] Care Team Providers Care Slot Key Person Name Role Phone Frederick Wu MD Unavailable [...]
--- OUTSIDE RECORDS SUMMARY | 2025-03-30 14:33 | XMS_ITS | CCD ---
Author Organization Unknown Care Team Providers Care Admissions Evaluator Name Role Phone Finishing Range Supervisor, [place] Primary Care Provider Unava ilable Unavailable Chronic Care Management Unavaila ble Summary Purpose DataExchange Insurance Providers Payer name Policy type / Coverage type Covered republican ID Effective Begin Date Effective End Date [employer] Commercial Insurance [id number] Unkn own Medicaid [place] Commercial Insurance [id number] Unk nown Family History Family History data not found Medication Administered No Medication Administered data Reason For Visit No Reason For Visit data
[2025-03-30 14:36] LABS: Hematocrit 43.7 % (33.0-51.0); Hemoglobin* 15.4 gm/dL (12.0-16.0); Immature Granulocytes Abs Auto 0.06 K/uL (0.00-0.30); Immature Granulocytes Pct Auto 0.7 %; Lymphocytes Absolute Auto 1.30 K/uL (0.90-2.90); Mean Corpuscular HGB Conc 35 gm/dL (32-36); Mean Corpuscular Hemoglobin 30 pg (26-34); Mean Corpuscular Volume 85 fL (80-100); RDW Coefficient of Variation % 12.5 % (11.5-15.5); Red Blood Count 5.13 m/uL (4.00-5.20); Slide Review Reflex No; White Blood Count* 8.26 K/uL (4.50-11.00)
[2025-03-30 14:52] LABS: Albumin* 4.6 g/dL (3.3-5.0); Chloride* 99 mmol/L (96-114); Sodium* 140 mmol/L (135-149)
[2025-03-30 14:55] LABS: Alanine Aminotransferase* 26 U/L (4-35); Alkaline Phosphatase* 114 U/L (40-150); Anion Gap 9 mEq/L (7-15); Aspartate Amino Transferase* 37 U/L (12-35); Bilirubin Total* 1.3 mg/dL (0.1-1.5); Blood Urea Nitrogen* 14 mg/dL (7-30); Calcium* 9.3 mg/dL (8.4-10.6); Carbon Dioxide* 32 mmol/L (20-32); Creatinine* 0.8 mg/dL (0.5-1.5); Est. Creatinine Clearance* 48.43; Estimated Glomerular Filt Rate 82 ml/min; Glucose* 120 mg/dL (60-115); Total Protein* 8.6 g/dL (6.0-8.3)
[2025-03-30 15:00] LABS: Appearance Urine Clear (Clear)
[2025-03-30 15:01] LABS: Potassium* 2.6 mmol/L (3.6-5.1)
--- OUTSIDE RECORDS SUMMARY | 2025-03-30 15:04 | XMS_ITS | CCD ---
Author Organization Unknown Care Team Providers Care Bilingual Legal Assistant Name Role Phone Bender Hand, [place] Primary Care Provider Unava ilable Unavailable Chronic Care Management Unavaila ble Summary Purpose DataExchange Insurance Providers Payer name Policy type / Coverage type Covered constitution party ID Effective Begin Date Effective End Date U[employer] Commercial Insurance [id number] Unkn own Medicaid [place] Commercial Insurance [id number] Unk nown Family History Family History data not found Medication Administered No Medication Administered data Reason For Visit No Reason For Visit data
--- OUTSIDE RECORDS SUMMARY | 2025-03-30 15:04 | XMS_ITS | CCD ---
Author Organization Unknown Care Team Providers Care Media Relations Coordinator Name Role Phone [employer] Coordinator, [place] Primary Care Provider Unava ilable Unavailable Chronic Care Management Unavaila ble Summary Purpose DataExchange Insurance Providers Payer name Policy type / Coverage type Covered democrat ID Effective Begin Date Effective End Date U[employer] Commercial Insurance [id number] Unkn own Medicaid [place] Commercial Insurance [id number] Unk nown Family History Family History data not found Medication Administered No Medication Administered data Reason For Visit No Reason For Visit data
[2025-03-30] MEDS: POTASSIUM CHLORIDE 10 MEQ/100 ML PIGGYBACK 100 MEQ IVPB (16:15)
[2025-03-30] MEDS: POTASSIUM BICARB 25 MEQ EFFERVESCENT TAB PO (16:58)
== END 2025-03-30 17:21 | disposition home or self-care (01) ==
PROVIDERS: Emergency Provider Internal Medicine; PCP Family Medicine
DX: N20.0 Calculus of kidney (principal)
CPT/HCPCS: 36415; 74177; 80053; 81001; 81003; 83690; 85025; 96365; 96372; 96375; 99283; 99284; A9270; J1171; J1885; J3480; Q9967

== ENCOUNTER 2025-04-08 10:54 | Outpatient (CLI) | payer OTHER, SELFPAY | END 2025-04-08 10:55 | disposition home or self-care (01) | LOC: NFLDREF 10:55 | PROVIDERS: PCP Family Medicine; Visit Provider Family Medicine | DX: E87.6 Hypokalemia (principal); N20.0 Calculus of kidney | CPT/HCPCS: 80048 ==

== ENCOUNTER 2025-05-08 11:54 | Outpatient (CLI) | payer OTHER, SELFPAY ==
--- NOTE | 2025-05-08 12:15 | CRLHL7_ITS ---
For Patients: As a result of the Century Cures Act, medical imaging exams and procedure reports are released immediately into your electronic medical record. You may view this report before your referring provider. If you have questions, please contact your health care provider. Indication: Radiculopathy. Technique: Multiplanar multisequence noncontrast MR images of the lumbar spine. Comparison: CT abdomen pelvis 03/30/2025. Findings: Exaggerated lumbar lordosis. Moderate rightward lumbar curvature. No acute fracture. No T1 hypointense lesions. Normal conus terminates at L1. T12-L1: Severe right eccentric disc height loss associated with moderate marrow edema. Posterior disc bulge. Superiorly migrated right subarticular/foraminal disc extrusion measuring 8 mm in short axis severely narrows the right neural foramen with likely impingement of the right T12 nerve root. Mild spinal canal narrowing. The left neural foramen is widely patent. L1-2: Trace retrolisthesis. Severe disc height loss. Mild vertebral body edema. Posterior disc bulge eccentric to the left. Mild facet arthropathy. Dorsal epidural fat prominence. Uhim-hv-ofmnczwt spinal canal narrowing. Severe left lateral recess stenosis. Mild right without left neural foraminal narrowing. L2-3: Mild retrolisthesis. Severe left eccentric disc height loss. Posterior disc bulging and endplate spondylitic ridging. Mild facet arthropathy. Mild spinal canal narrowing. Mild left without right neural foraminal narrowing. L3-4: Wgjm-yd-imfwfrbm disc height loss. Posterior disc bulge. Moderate facet arthropathy. Moderate spinal canal narrowing. Mild bilateral neural foraminal narrowing. L4-5: Grade 1 anterolisthesis measuring 5 mm. Moderate disc degeneration and disc height loss. Posterior disc bulge. Advanced facet arthropathy. Thickening ligamentum flavum. Grev-em-xdtobwko spinal canal narrowing. Yipf-qz-wctaberz bilateral neural foraminal narrowing. L5-S1: Mild disc degeneration. Shallow disc bulge. Advanced right and mild left facet arthropathy. No spinal canal narrowing. Moderate right without left neural foraminal narrowing. Small bilateral renal cysts. Impression: 1. Advanced multilevel lumbar spondylosis and moderate dextroscoliosis. 2. At T12-L1, superiorly migrated right subarticular/foraminal disc extrusion likely impinges the right T12 nerve root. Moderate discogenic vertebral body edema. 3. At L1-2, severe left lateral recess stenosis. 4. At L3-4, moderate spinal canal narrowing. 5. At L4-5, grade 1 anterolisthesis and advanced facet arthropathy contribute to ntmj-ja-keuufehr spinal canal and neural foraminal narrowing. 6. At L5-S1, moderate right neural foraminal narrowing. Dictated by Eusebio Blevins MD @ 05/08/2025 6:05:56 PM (Electronically Signed)
== END 2025-05-08 11:55 | disposition home or self-care (01) ==
PROVIDERS: PCP Family Medicine; Visit Provider Family Medicine
DX: M54.16 Radiculopathy, lumbar region (principal); M47.896 Other spondylosis, lumbar region; M51.25 Other intervertebral disc displacement, thoracolumbar region; M48.061 Spinal stenosis, lumbar region without neurogenic claudication
CPT/HCPCS: 72148

== ENCOUNTER 2025-05-21 09:48 | Outpatient (CLI) | payer OTHER, SELFPAY ==
--- NOTE | 2025-05-21 10:00 | CRLHL7_ITS ---
For Patients: As a result of the Century Cures Act, medical imaging exams and procedure reports are released immediately into your electronic medical record. You may view this report before your referring provider. If you have questions, please contact your health care provider. INDICATION: Abdominal pain TECHNIQUE: Tc-99m Mebrofenin 8 mCi was injected intravenously. Images of the liver, gallbladder and abdomen were obtained for 60 minutes. 1.6 mcg CCK was then administered intravenously and imaging continued for an additional 29 minutes. COMPARISON: CT 03/30/2025 FINDINGS: There is good uptake of activity by the hepatocytes. There is visualization of the biliary tree and gallbladder with delayed excretion into the small bowel. The gallbladder is distended, as before. In response to CCK administration, there is a decreased gallbladder ejection fraction of 13 percent. IMPRESSION: Chronic distended gallbladder with decreased ejection fraction consistent with chronic cholecystitis/biliary dyskinesia. Surgical consultation advised. Dictated by Panchito Irizarry MD @ 05/21/2025 1:00:26 PM (Electronically Signed)
== END 2025-05-21 09:49 | disposition home or self-care (01) ==
LOC: NM 09:48
PROVIDERS: PCP Family Medicine; Visit Provider Family Medicine
DX: R10.9 Unspecified abdominal pain (principal); K82.9 Disease of gallbladder, unspecified
CPT/HCPCS: 78227; A9537; J2805

== ENCOUNTER 2025-06-04 09:45 | Outpatient (CLI) | payer OTHER, SELFPAY | END 2025-06-04 09:46 | disposition home or self-care (01) | LOC: INJ CL 09:46 | PROVIDERS: PCP Family Medicine; Visit Provider Family Medicine | DX: M54.16 Radiculopathy, lumbar region (principal); M51.25 Other intervertebral disc displacement, thoracolumbar region | CPT/HCPCS: 64483; J1100; Q9966 ==

== ENCOUNTER 2025-07-16 07:34 | Day surgery (SDC) | payer OTHER, SELFPAY ==
[2025-07-16] VITALS (17 sets, daily range): BP systolic 124–157; BP diastolic 73–100; PULSE 59–75; RESP 16–18; TEMP 36.7–37.1; O2SAT 86–99; BMI 33.2
--- NOTE | 2025-07-16 08:47 | W.PM.H&PU ---
History & Physical Update History & Physical Update H&P Reviewed and patient assessed: No changes noted
[2025-07-16] MEDS: BUPIVACAINE 0.5% 30 ML INJECTION (10:40)
--- NOTE | 2025-07-16 10:52 | PM.GSPRC ---
Operative Note Date of procedure: 07/16/25 Pre-op diagnosis: Biliary colic Post-op diagnosis: Same Type of Procedure: 1. Laparoscopic cholecystectomy 2. Lysis of adhesions Indications: Patient is a 64-year-old female who presented to clinic with symptomatic abdominal pain. Clinical workup was obtained with history and findings consistent with biliary colic. Risks and benefits of operative intervention were discussed at length with the patient. Risks included but was not limited to: Bleeding, infection, risk of damage to surrounding structures, possible need for additional procedures, possible need to convert to an open operation and postoperative complications such as pneumonia, pulmonary emboli or PA. All questions and concerns were addressed with the patient agreeing to proceed. Procedure Description: After discussing the risks and benefits of the procedure, the patient signed informed consent.? The operative site was marked and the patient was brought to the operating room and placed on the operating table in supine position.? Care was taken to pad the patient's pressure points.?? The patient was then intubated by anesthesia.?? The operative site was then prepped and draped in the usual sterile fashion.? A time-out was then performed. Entrance to the abdomen was gained via a 5 mm Visiport in the left upper quadrant. The abdomen was insufflated and briefly surveyed for signs of injury. There was none. There was evidence of multiple midline adhesions, consistent with the patient's previous surgical history. An 11 mm umbilical port was placed as well as 2 working ports along the right costal margin. The midline adhesions to the anterior abdominal wall were taken down with cautery. No evidence of any involved bowel or colon. A small amount of bleeding on the omentum was controlled with cautery. The patient was then placed in reverse Trendelenburg position with the right The gallbladder fundus was grasped and retracted cephalad. A large amount of dissection was needed to free omental adhesions from the gallbladder body. The infundibulum was grasped. A combination of hook cautery and blunt dissection was used to carefully dissect out the cystic duct and artery until they could clearly be seen entering the gallbladder without any intervening structures. The gallbladder was dissected off the cystic plate to achieve the critical view. Once this was achieved the cystic duct and artery were each clipped with 2 clips proximally and 1 clip distally and transected with the scissors. The gallbladder was then taken off of the liver bed and removed from the abdomen using an Endo-Catch bag. The gallbladder bed was surveyed for hemostasis, which was excellent. The small amount of irrigation used was suctioned. The umbilical port fascia was closed with 0 Vicryl. A 2nd look in the abdomen was then obtained and all ports were removed under direct vision. The left upper quadrant port was used to remove the CO2 insufflation. Additional local anesthetic was instilled into each port site. The skin was closed with absorbable subcuticular suture. Sterile dressings were applied. Instrument sponge and needle counts were correct at the end of the case. The patient was then woken and transferred to the PACU in stable condition. Findings: Distended gallbladder. Multiple midline adhesions to the anterior abdominal wall. Anesthesia: GETCatherine Surgeon: Indiana Barclay MD Estimated blood loss (mL): 5 Specimen: Gallbladder Condition: stable Disposition: PACU
--- NOTE | 2025-07-16 11:13 | P.ANES_ITS ---
Anesthesia Charges Start Date/Time Anesthesia Start Date: 07/16/25 Anesthesia Start Time: 09:13 Stop Date/Time Anesthesia Stop Date: 07/16/25 Anesthesia Stop Time: 11:02 Coding CPT Codes CPT Codes: ANESTH SURG UPPER ABDOMEN - 21103 ([id number]) P3 - PATIENT W/SEVERE SYS DISEASE, QK - FIELD MARKETING MANAGER 2-4 CNCRNT ANES PROC, QX - AIR TESTER SVC W/ MD MED DIRECTION
--- NOTE | 2025-07-16 11:13 | W.ANESCHARGE ---
Anesthesia Charges Start Date/Time Anesthesia Start Date: 07/16/25 Anesthesia Start Time: 09:13 Stop Date/Time Anesthesia Stop Date: 07/16/25 Anesthesia Stop Time: 11:02 Coding CPT Codes CPT Codes: ANESTH SURG UPPER ABDOMEN - 86916 ([id number]) P3 - PATIENT W/SEVERE SYS DISEASE, QK - TAKE AWAY WORKER 2-4 CNCRNT ANES PROC, QX - SENIOR ECONOMIST SVC W/ MD MED DIRECTION
[2025-07-16] MEDS: LACTATED RINGERS 1000 ML 1,000 ML 100 ML IV (11:15)
--- NOTE | 2025-07-16 11:17 | P.ANES_ITS ---
Anesthesia Charges Start Date/Time Anesthesia Start Date: 07/16/25 Anesthesia Start Time: 09:13 Stop Date/Time Anesthesia Stop Date: 07/16/25 Anesthesia Stop Time: 11:02 Coding CPT Codes CPT Codes: ANESTH SURG UPPER ABDOMEN - 18863 ([id number]) QK - FILTER HELPER 2-4 CNCRNT ANES PROC, QX - TATTOOER SVC W/ MD MED DIRECTION, P3 - PATIENT W/SEVERE SYS DISEASE
--- NOTE | 2025-07-16 11:17 | W.ANESCHARGE ---
Anesthesia Charges Start Date/Time Anesthesia Start Date: 07/16/25 Anesthesia Start Time: 09:13 Stop Date/Time Anesthesia Stop Date: 07/16/25 Anesthesia Stop Time: 11:02 Coding CPT Codes CPT Codes: ANESTH SURG UPPER ABDOMEN - 53989 ([id number]) QK - TESTER VIBRATOR EQUIPMENT 2-4 CNCRNT ANES PROC, QX - DB2 DEVELOPER SVC W/ MD MED DIRECTION, P3 - PATIENT W/SEVERE SYS DISEASE
== END 2025-07-16 13:42 | disposition home or self-care (01) ==
PROVIDERS: PCP Family Medicine; Visit Provider Surgery
PROC: 0FT44ZZ Resection of Gallbladder, Percutaneous Endoscopic Approach (ICD-10-PCS; CPT 47562; principal; 2025-07-16 09:00)
DX: K82.8 Other specified diseases of gallbladder (principal); I10 Essential (primary) hypertension
CPT/HCPCS: 47562; 00790; A9270; J0330; J0665; J0690; J1100; J2250; J2405; J2704; J3010; J3490; J7120

== ENCOUNTER 2025-08-06 11:12 | Outpatient (CLI) | payer OTHER, SELFPAY ==
--- NOTE | 2025-08-06 11:30 | CRLHL7_ITS ---
For Patients: As a result of the Century Cures Act, medical imaging exams and procedure reports are released immediately into your electronic medical record. You may view this report before your referring provider. If you have questions, please contact your health care provider. INDICATION: BILATERAL SCREENING MAMMOGRAM, ASYMPTOMATIC 64 Y/O FEMALE COMPARISON: 12/20/2023, 12/10/2022, 10/28/2021 TECHNIQUE: Digital mammogram in CC and MLO projections including computer-aided detection (CAD) and tomosynthesis. BREAST COMPOSITION: There are scattered areas of fibroglandular density. FINDINGS: No suspicious findings. ASSESSMENT: BI-RADS 2 Benign RECOMMENDATION: Annual screening mammogram. A lay language report of this examination will be provided to the patient. Dictated by: Panchito Irizarry MD @ 08/07/2025 10:13:55 (Electronically Signed)
== END 2025-08-06 11:13 | disposition home or self-care (01) ==
LOC: MAMMO 11:12
PROVIDERS: PCP Family Medicine; Visit Provider Family Medicine
DX: Z12.31 Encounter for screening mammogram for malignant neoplasm of breast (principal)
CPT/HCPCS: 77063; 77067